=== PATIENT | female | born 1940 | race Caucasian/White ===

== ENCOUNTER 2017-04-30 06:42 | Outpatient (CLI) | payer MEDICARE, OTHER ==
[~2017-04-30] VITALS: Ht 165.1 cm; Wt 59.1 kg
[2017-04-30] MEDS ORDERED: SYNTHROID125 MCG PO (07:22)
[2017-04-30] MEDS ORDERED: TENORMIN25 MG PO (07:23)
[2017-04-30] MEDS ORDERED: LISINOPRIL10 MG PO (07:23)
[2017-04-30] MEDS ORDERED: NORVASC5 MG PO (07:23)
[2017-04-30] MEDS ORDERED: PLAQUENIL200 MG PO (07:23)
[2017-04-30] MEDS ORDERED: K-TAB10 MEQ PO (07:24)
[2017-04-30] MEDS ORDERED: VITAMIN B-1000 MCG/M IM (07:24)
[2017-04-30] MEDS ORDERED: OMEPRAZOLE40 MG PO (07:25)
[2017-04-30] MEDS ORDERED: PEPCID40 MG PO (07:25)
[2017-04-30] MEDS ORDERED: EVISTA60 MG PO (07:25)
[2017-04-30 07:29] LABS: BASOPHILS 0.2 % (0-2); EOSINOPHILS 0 % (0-7); HEMATOCRIT 37.7 % (36.0-48.0); HEMOGLOBIN 12.6 g/dL (12-16); IMMATURE GRANULOCYTES 0.2 % (0-5); MCH 31.7 pg (26.0-34.0); MCHC 33.4 g/dL (31.0-37.0); MEAN PLATELET VOLUME 9.6 fL (7.4-10.4); MONOCYTES 15.4 % (2-11); NEUTROPHILS 65.2 % (40-80); PLATELET COUNT 173 10x3/uL (130-400); RBC 3.97 10x6/uL (4.00-5.40); RDW 12.3 % (11.5-14.5); WBC 4.1 10x3/uL (4.8-10.8)
[2017-04-30 07:32] VITALS: BP 137/62; Ht 165.1 cm; Wt 59.1 kg
[2017-04-30 07:57] LABS: INR 0.96 (0.85-1.17); PROTIME 12.6 SECONDS (11.6-15.0)
[2017-04-30 07:58] LABS: ANION GAP 9.9 mmol/L (8-16); APTT 30.9 SECONDS (22.8-39.4); CALCIUM 8.5 mg/dL (8.5-10.1); CARBON DIOXIDE 29.6 mmol/L (21.0-32.0); CREATININE - SERUM 0.9 mg/dL (0.6-1.3); POTASSIUM - SERUM 3.5 mmol/L (3.5-5.1)
--- NOTE | 2017-04-30 12:07 | NUR ---
1145 IV DC WITH CATHER TIP INTACT
== END 2017-04-30 12:00 | disposition home or self-care (01) ==
LOC: D.OPS 06:42 → D.CT 09:00 → D.OPS 12:00
PROVIDERS: General Practice
DX: E85.9 Amyloidosis, unspecified (principal); R12 Heartburn

== ENCOUNTER 2017-12-07 08:36 | Inpatient (IN) | payer MEDICARE, OTHER ==
[~2017-12-07] VITALS: Ht 165.1 cm; Wt 58.2 kg
--- NOTE | ~2017-12-07 | EC ---
PATIENT:RICHY REGAN DATE OF SERVICE: 12/07/17 SEX: F MEDICAL RECORD: [id number] DATE OF : 38 LOCATION:D.M2 D.213 AGE OF PATIENT: 77 ADMISSION DATE: 12/07/17 REFERRING PHYSICIAN: INTERPRETING PHYSICIAN: UJANY PEREZ MD ECHOCARDIOGRAM REPORT ECHO CHARGES 4 ECHO COMPLETE CLINICAL DIAGNOSIS: CHF ECHOCARDIOGRAPHIC MEASUREMENTS (adult normal given) AC root (d.<3.7cm) 3.0 cm LV Septum d (<1.2 cm> 1.4 cm Valve Excursion 2.1 cm LV Septum (systole) 1.8 cm Left Atria (s.<4.0cm> 3.1 cm LVPW d(<1.2cm) 1.2 cm RV (d.<2.3cm) 2.5 cm LVPW (sytole) 2.0 cm LV diastole(<5.6CM) 5.2 cm MV E-F(>70mm/sec) cm LV systole 2.9 cm LVOT Diameter 1.7 cm MV exc.(>10mm) cm Est.ejection fraction (50-75%) % Pericardial Effusion N DOPPLER: LVIT cm/sec A 114 cm/sec E 123 cm/sec LA cm/sec RVSP 61.0 mmHg LVOT 96.0 cm/sec AOP1/2T 308 m/s Asc. Ao 179 cm/sec RVOT 81.0 cm/sec RA cm/sec PA 87.0 cm/sec AV Gradient Peak 13.0 mmHg AV Mean 6.7 mmHg AV Area 1.1 cm MV Gradient Peak 6.4 mmHg MV Mean 3.1 mmHg MV Area cm COMMENTS: Financial Intern: Pillo MCKEONOE Orthotics Technician: 1 Dr. Perez TAPE# PACS DATE OF SERVICE: 12/07/2017 ECHOCARDIOGRAM DATE OF SERVICE: 12/07/2017 FINDINGS: 1. Left ventricular chamber size is within normal limits. Left ventricular systolic function is normal. Overall ejection fraction estimated at 55%. 2. Left atrium, right atrium, and right ventricular chamber sizes are within ECHOCARDIOGRAM REPORT [id number] RICHY REGAN normal limits. 3. Valvular structures have normal structure and motion. 4. Doppler interrogation reveals mild aortic insufficiency, moderate mitral regurgitation, moderate tricuspid regurgitation, no other valvular insufficiency or stenosis; however, pulmonary systolic pressure is elevated estimated at 61 mmHg. 5. No evidence of pericardial effusion or left ventricular thrombus. TRANSINT:[id number] Voice Confirmation ID: [id number] DOCUMENT ID: [id number] JUANY PEREZ MD at 1324 CC: [id number] DICTATION DATE: 12/08/17 0950 ACCOUNT DEVELOPMENT ASSOCIATE: 12/08/17 1204 ADM IN [facility] [address] [place] [address]
[~2017-12-07 08:36] MED LIST: EVISTA60 MG PO; K-TAB10 MEQ PO; LISINOPRIL10 MG PO; NORVASC5 MG PO; OMEPRAZOLE40 MG PO; PEPCID40 MG PO; PLAQUENIL200 MG PO; SYNTHROID125 MCG PO; TENORMIN25 MG PO; VITAMIN B-1000 MCG/M IM
[2017-12-07 09:20] LABS: ALBUMIN 3.6 g/dL (3.4-5.0); ANION GAP 12.8 mmol/L (8-16); BILIRUBIN - TOTAL 0.5 mg/dL (0.2-1.3); CALCIUM 8.2 mg/dL (8.5-10.1); CARBON DIOXIDE 26.7 mmol/L (21.0-32.0); CREATININE - SERUM 0.8 mg/dL (0.6-1.3); POTASSIUM - SERUM 3.5 mmol/L (3.5-5.1); PROTEIN - SERUM 7.3 g/dL (6.4-8.2)
[2017-12-07 09:26] LABS: BASOPHILS 0 % (0-2); EOSINOPHILS 0 % (0-7); HEMATOCRIT 34.4 % (36.0-48.0); HEMOGLOBIN 11.5 g/dL (12-16); LYMPHOCYTES 5.4 % (15-50); MCH 31.1 pg (26.0-34.0); MCHC 33.4 g/dL (31.0-37.0); MONOCYTES 11.7 % (2-11); NEUTROPHILS 82.9 % (40-80); PLATELET COUNT 169 10x3/uL (130-400); RDW 12.1 % (11.5-14.5); WBC 5.4 10x3/uL (4.8-10.8)
[2017-12-07 09:37] LABS: THYROID STIMULATING HORMONE 0.56 uIU/mL (0.36-3.74); TROPONIN-I 0.054 ng/mL (0.000-0.060)
[2017-12-07 12:53] VITALS: BP 144/56; BMI 21.5
[2017-12-07 17:30] VITALS: BP 153/73
[2017-12-07 17:31] VITALS: BP 153/73
[2017-12-07 18:31] LABS: % SATURATION 5 % (15-55); IRON 16 ug/dl (35-150); TOTAL IRON BIND CAPACITY 299 ug/dl (260-445); UNSAT IRON BIND CAPACITY 283 ug/dl (150-375)
[2017-12-07 18:40] LABS: APPEARANCE CLEAR (CLEAR); BILIRUBIN NEGATIVE (NEGATIVE); COLOR YELLOW (YELLOW); GLUCOSE NEGATIVE (NEGATIVE); KETONE NEGATIVE (NEGATIVE); NITRITE NEGATIVE (NEGATIVE); PROTEIN NEGATIVE (NEGATIVE); UROBILINOGEN NORMAL (NORMAL)
[2017-12-07 18:44] LABS: FERRITIN 393 ng/mL (3-244); PRO BNP 3587 pg/mL (0-450)
[2017-12-07 21:30] VITALS: BP 137/57
[2017-12-08 06:02] LABS: BASOPHILS 0 % (0-2); EOSINOPHILS 0 % (0-7); HEMATOCRIT 31.7 % (36.0-48.0); HEMOGLOBIN 10.7 g/dL (12-16); IMMATURE GRANULOCYTES 0.2 % (0-5); LYMPHOCYTES 6.4 % (15-50); MCH 31.2 pg (26.0-34.0); MCHC 33.8 g/dL (31.0-37.0); MCV 92.4 fL (80.0-100.0); MEAN PLATELET VOLUME 10.2 fL (7.4-10.4); MONOCYTES 25.8 % (2-11); NEUTROPHILS 67.6 % (40-80); PLATELET COUNT 153 10x3/uL (130-400); RBC 3.43 10x6/uL (4.00-5.40); RDW 12.1 % (11.5-14.5); WBC 4.2 10x3/uL (4.8-10.8)
[2017-12-08 06:11] VITALS: BP 133/48
[2017-12-08 06:23] LABS: ANION GAP 10.2 mmol/L (8-16); CALCIUM 7.9 mg/dL (8.5-10.1); CARBON DIOXIDE 26.8 mmol/L (21.0-32.0); CREATININE - SERUM 0.8 mg/dL (0.6-1.3)
[2017-12-08 07:59] VITALS: BP 154/71
[2017-12-08 09:59] VITALS: BMI 20.9
[2017-12-08 11:50] VITALS: BP 142/73
[2017-12-08 12:49] VITALS: Ht 165.1 cm; Wt 58.2 kg
[2017-12-08 15:12] VITALS: BP 133/57
[2017-12-08 20:00] VITALS: BP 118/48
[2017-12-09] VITALS: BP 147/66
[2017-12-09 04:00] VITALS: BP 120/46
[2017-12-09 06:25] LABS: BASOPHILS 0 % (0-2); EOSINOPHILS 0 % (0-7); HEMATOCRIT 34.6 % (36.0-48.0); HEMOGLOBIN 11.5 g/dL (12-16); IMMATURE GRANULOCYTES 0.5 % (0-5); LYMPHOCYTES 10.6 % (15-50); MCH 30.9 pg (26.0-34.0); MCHC 33.2 g/dL (31.0-37.0); MEAN PLATELET VOLUME 10.4 fL (7.4-10.4); MONOCYTES 22.1 % (2-11); NEUTROPHILS 66.8 % (40-80); PLATELET COUNT 169 10x3/uL (130-400); RBC 3.72 10x6/uL (4.00-5.40); RDW 12.4 % (11.5-14.5); WBC 3.7 10x3/uL (4.8-10.8)
[2017-12-09 06:40] LABS: CALC OSMOLALITY 260 mosm/kg (275-300); CARBON DIOXIDE 24.6 mmol/L (21.0-32.0); CHLORIDE - SERUM 96 mmol/L (98-107); CREATININE - SERUM 0.7 mg/dL (0.6-1.3); GLUCOSE 95 mg/dL (74-106); POTASSIUM - SERUM 3.3 mmol/L (3.5-5.1); SODIUM 131 mmol/L (136-145); UREA NITROGEN 7 mg/dL (7-18); eGFR NON AFRICAN AMERICAN 86 mL/min (90-120)
[2017-12-09 07:20] LABS: FOLATE (FOLIC ACID) - SERUM >20.0 ng/mL (>3.0)
[2017-12-09 07:39] VITALS: BP 156/67
[2017-12-09 10:48] VITALS: BP 116/61
[2017-12-09 15:21] VITALS: BP 150/54
[2017-12-09 19:00] VITALS: BP 126/60
[2017-12-10] VITALS: BP 111/50
[2017-12-10 04:00] VITALS: BP 148/60
[2017-12-10 05:37] LABS: BASOPHILS 0 % (0-2); EOSINOPHILS 0 % (0-7); HEMATOCRIT 33.7 % (36.0-48.0); HEMOGLOBIN 11.1 g/dL (12-16); IMMATURE GRANULOCYTES 0.2 % (0-5); LYMPHOCYTES 8.1 % (15-50); MCH 30.8 pg (26.0-34.0); MCHC 32.9 g/dL (31.0-37.0); MCV 93.6 fL (80.0-100.0); MEAN PLATELET VOLUME 10.2 fL (7.4-10.4); NEUTROPHILS 65.7 % (40-80); PLATELET COUNT 170 10x3/uL (130-400); RDW 12.4 % (11.5-14.5); WBC 4.3 10x3/uL (4.8-10.8)
[2017-12-10 06:05] LABS: ANION GAP 12.9 mmol/L (8-16); CARBON DIOXIDE 25.9 mmol/L (21.0-32.0); CREATININE - SERUM 0.8 mg/dL (0.6-1.3); POTASSIUM - SERUM 3.8 mmol/L (3.5-5.1); VANCOMYCIN - TROUGH 13.2 ug/mL (10.0-20.0)
[2017-12-10 08:07] VITALS: BP 126/66
[2017-12-10 11:10] VITALS: BP 140/64
[2017-12-10 15:27] VITALS: BP 133/66
[2017-12-10 20:00] VITALS: BP 153/69
[2017-12-11] VITALS: BP 108/57
[2017-12-11 05:36] LABS: BASOPHILS 0.3 % (0-2); EOSINOPHILS 0.3 % (0-7); HEMATOCRIT 31.9 % (36.0-48.0); HEMOGLOBIN 10.6 g/dL (12-16); IMMATURE GRANULOCYTES 0.3 % (0-5); LYMPHOCYTES 8.2 % (15-50); MCH 30.9 pg (26.0-34.0); MCHC 33.2 g/dL (31.0-37.0); MONOCYTES 26.2 % (2-11); NEUTROPHILS 64.7 % (40-80); PLATELET COUNT 170 10x3/uL (130-400); RBC 3.43 10x6/uL (4.00-5.40); RDW 12.3 % (11.5-14.5); WBC 3.9 10x3/uL (4.8-10.8)
[2017-12-11 05:51] LABS: CALC OSMOLALITY 259 mosm/kg (275-300); CALCIUM 7.4 mg/dL (8.5-10.1); CARBON DIOXIDE 23.9 mmol/L (21.0-32.0); CHLORIDE - SERUM 96 mmol/L (98-107); CREATININE - SERUM 0.7 mg/dL (0.6-1.3); GLUCOSE 84 mg/dL (74-106); POTASSIUM - SERUM 3.5 mmol/L (3.5-5.1); SODIUM 131 mmol/L (136-145); UREA NITROGEN 8 mg/dL (7-18); eGFR NON AFRICAN AMERICAN 86 mL/min (90-120)
[2017-12-11 06:14] LABS: SPE - A/G RATIO 1.1 (0.7-1.7); SPE - ALPHA-1 GLOBULIN 0.3 g/dL (0.0-0.4); SPE - ALPHA-2 GLOBULIN 0.9 g/dL (0.4-1.0); SPE - BETA GLOBULIN 0.6 g/dL (0.7-1.3); SPE - M-SPIKE Not Observed g/dL (Not Observed); SPE - TOTAL PROTEIN 5.8 g/dL (6.0-8.5)
[2017-12-11 07:48] VITALS: BP 103/64
[2017-12-11 11:39] VITALS: BP 155/77
[2017-12-11 16:22] LABS: COMPLEMENT C4 3.5 mg/dL (17.4-52.2)
[2017-12-11 16:42] VITALS: BP 153/73
[2017-12-11 19:00] VITALS: BP 129/65
[2017-12-12 04:00] VITALS: BP 145/65
[2017-12-12 06:32] LABS: HEMATOCRIT 35.3 % (36.0-48.0); HEMOGLOBIN 11.7 g/dL (12-16); MCH 30.5 pg (26.0-34.0); MCHC 33.1 g/dL (31.0-37.0); MCV 91.9 fL (80.0-100.0); MEAN PLATELET VOLUME 9.9 fL (7.4-10.4); PLATELET COUNT 191 10x3/uL (130-400); RBC 3.84 10x6/uL (4.00-5.40); RDW 12.2 % (11.5-14.5)
[2017-12-12 06:54] LABS: WBC 1.4 10x3/uL (4.8-10.8)
[2017-12-12 07:00] LABS: ALBUMIN 2.8 g/dL (3.4-5.0); ANION GAP 16.2 mmol/L (8-16); BILIRUBIN - DIRECT 0.09 mg/dL (0.00-0.30); BILIRUBIN - INDIRECT 0.24 mg/dL (0.00-1.00); BILIRUBIN - TOTAL 0.33 mg/dL (0.2-1.3); CALCIUM 8.4 mg/dL (8.5-10.1); CARBON DIOXIDE 23.3 mmol/L (21.0-32.0); CREATININE - SERUM 0.8 mg/dL (0.6-1.3); POTASSIUM - SERUM 3.5 mmol/L (3.5-5.1)
[2017-12-12 07:38] LABS: EOSINOPHILS 2 % (0-7); LYMPHOCYTES 6 % (15-50); MONOCYTES 2 % (2-11); NEUTROPHILS 84 % (40-80); PLATELET ESTIMATE NORMAL; PLATELET MORPHOLOGY GIANT PLTS PRESENT
[2017-12-12 08:26] VITALS: BP 146/70
[2017-12-12 13:05] VITALS: BP 153/67
[2017-12-12 19:00] VITALS: BP 157/85
[2017-12-13 01:00] VITALS: BP 145/59
[2017-12-13 03:34] VITALS: BP 116/50
[2017-12-13 05:42] LABS: HEMATOCRIT 32.1 % (36.0-48.0); HEMOGLOBIN 10.9 g/dL (12-16); MCH 30.8 pg (26.0-34.0); MCV 90.7 fL (80.0-100.0); MEAN PLATELET VOLUME 10.5 fL (7.4-10.4); PLATELET COUNT 225 10x3/uL (130-400); RBC 3.54 10x6/uL (4.00-5.40); RDW 12.3 % (11.5-14.5); WBC 32.6 10x3/uL (4.8-10.8)
[2017-12-13 06:12] LABS: ANION GAP 15.4 mmol/L (8-16); CALCIUM 8.4 mg/dL (8.5-10.1); CARBON DIOXIDE 23.9 mmol/L (21.0-32.0); CREATININE - SERUM 0.8 mg/dL (0.6-1.3); POTASSIUM - SERUM 3.3 mmol/L (3.5-5.1); VANCOMYCIN - TROUGH 14.5 ug/mL (10.0-20.0)
[2017-12-13 06:51] LABS: LYMPHOCYTES 4 % (15-50); MONOCYTES 2 % (2-11); NEUTROPHILS 78 % (40-80); PLATELET ESTIMATE NORMAL
[2017-12-13 08:32] VITALS: BP 145/66
[2017-12-13 11:24] VITALS: BP 143/64
[2017-12-13 15:46] VITALS: BP 119/59
[2017-12-13 20:00] VITALS: BP 132/60
[2017-12-14] VITALS: BP 147/75
[2017-12-14 04:00] VITALS: BP 135/68
[2017-12-14 06:33] LABS: BASOPHILS 0 % (0-2); EOSINOPHILS 0 % (0-7); HEMATOCRIT 33.8 % (36.0-48.0); HEMOGLOBIN 11.2 g/dL (12-16); IMMATURE GRANULOCYTES 7.6 % (0-5); LYMPHOCYTES 2.1 % (15-50); MCH 30.5 pg (26.0-34.0); MCHC 33.1 g/dL (31.0-37.0); MCV 92.1 fL (80.0-100.0); MEAN PLATELET VOLUME 10.3 fL (7.4-10.4); NEUTROPHILS 86.3 % (40-80); PLATELET COUNT 208 10x3/uL (130-400); RBC 3.67 10x6/uL (4.00-5.40); RDW 12.5 % (11.5-14.5); WBC 25.7 10x3/uL (4.8-10.8)
[2017-12-14 06:36] LABS: CALC OSMOLALITY 269 mosm/kg (275-300); CALCIUM 8.2 mg/dL (8.5-10.1); CARBON DIOXIDE 26.9 mmol/L (21.0-32.0); CHLORIDE - SERUM 98 mmol/L (98-107); CREATININE - SERUM 0.7 mg/dL (0.6-1.3); GLUCOSE 133 mg/dL (74-106); POTASSIUM - SERUM 3.4 mmol/L (3.5-5.1); SODIUM 133 mmol/L (136-145); UREA NITROGEN 19 mg/dL (7-18); eGFR NON AFRICAN AMERICAN 86 mL/min (90-120)
[2017-12-14 07:55] VITALS: BP 149/57
[2017-12-14 12:00] VITALS: BP 153/77
[2017-12-14 16:17] VITALS: BP 143/75
[2017-12-14 19:00] VITALS: BP 149/73
[2017-12-15 04:00] VITALS: BP 169/78
[2017-12-15 06:20] LABS: CALC OSMOLALITY 272 mosm/kg (275-300); CALCIUM 8.3 mg/dL (8.5-10.1); CARBON DIOXIDE 27.5 mmol/L (21.0-32.0); CHLORIDE - SERUM 99 mmol/L (98-107); CREATININE - SERUM 0.6 mg/dL (0.6-1.3); GLUCOSE 103 mg/dL (74-106); POTASSIUM - SERUM 3.1 mmol/L (3.5-5.1); SODIUM 136 mmol/L (136-145); UREA NITROGEN 15 mg/dL (7-18); eGFR NON AFRICAN AMERICAN > 90 mL/min (90-120)
[2017-12-15 06:43] LABS: BASOPHILS 0.1 % (0-2); EOSINOPHILS 0 % (0-7); HEMATOCRIT 33.1 % (36.0-48.0); IMMATURE GRANULOCYTES 1.8 % (0-5); LYMPHOCYTES 4.5 % (15-50); MCHC 33.2 g/dL (31.0-37.0); MCV 93.2 fL (80.0-100.0); MEAN PLATELET VOLUME 10.9 fL (7.4-10.4); MONOCYTES 5.9 % (2-11); NEUTROPHILS 87.7 % (40-80); PLATELET COUNT 198 10x3/uL (130-400); RBC 3.55 10x6/uL (4.00-5.40); RDW 12.6 % (11.5-14.5); WBC 25.7 10x3/uL (4.8-10.8)
[2017-12-15 08:46] VITALS: BP 119/77
[2017-12-15 11:23] VITALS: BP 164/68
[2017-12-15] MEDS ORDERED: ACETAMINOPHEN325 MG PO (11:25)
[2017-12-15] MEDS ORDERED: PREDNISONE20 MG PO (11:26)
[2017-12-15 16:14] LABS: ANCA - ANTIMYELOPEROXIDASE <9.0 U/mL (0.0-9.0); ANCA - ANTIPROTEINASE 3 <3.5 U/mL (0.0-3.5); ANCA - ATYPICAL <1:20 titer (Neg:<1:20); ANCA - CYTOPLASMIC <1:20 titer (Neg:<1:20); ANCA - PERINUCLEAR <1:20 titer (Neg:<1:20)
== END 2017-12-15 14:03 | DRG 193 ==
LOC: D.ER 08:36 → D.M2 11:49
PROVIDERS: Family Medicine; Internal Medicine Hematology & Oncology; Internal Medicine Nephrology
DX: J18.9 Pneumonia, unspecified organism (principal); I50.31 Acute diastolic (congestive) heart failure; E87.1 Hypo-osmolality and hyponatremia; N39.0 Urinary tract infection, site not specified; E85.4 Organ-limited amyloidosis; I11.0 Hypertensive heart disease with heart failure; R55 Syncope and collapse; I48.91 Unspecified atrial fibrillation; K21.9 Gastro-esophageal reflux disease without esophagitis; M35.00 Sjogren syndrome, unspecified; E03.9 Hypothyroidism, unspecified; B00.1 Herpesviral vesicular dermatitis; D50.9 Iron deficiency anemia, unspecified; E87.6 Hypokalemia; K44.9 Diaphragmatic hernia without obstruction or gangrene; I08.1 Rheumatic disorders of both mitral and tricuspid valves; J43.9 Emphysema, unspecified; B00.9 Herpesviral infection, unspecified; L93.1 Subacute cutaneous lupus erythematosus; D70.9 Neutropenia, unspecified; I77.6 Arteritis, unspecified; Z85.3 Personal history of malignant neoplasm of breast; B95.2 Enterococcus as the cause of diseases classified elsewhere

== ENCOUNTER 2018-07-09 12:40 | Inpatient (IN) | payer MEDICARE, OTHER ==
[2018-07-09] VITALS (7 sets, daily range): BP systolic 134–172; BP diastolic 64–88; BMI 22.5
[~2018-07-09] VITALS: Ht 165.1 cm; Wt 48.2 kg
--- NOTE | ~2018-07-09 | OP ---
PATIENT NAME: RICHY REGAN MEDICAL RECORD: [id number] :38 LOCATION:D.M2 D.2122 ADMISSION DATE:07/09/18 SURGEON: JUANY CRABTREE MD DATE OF OPERATION: 07/13/2018 PROCEDURE: Right heart catheterization. INDICATION: Shortness of breath, dyspnea on exertion, pulmonary hypertension by echocardiogram. PROCEDURE IN DETAIL: After informed consent was obtained and after a detailed description of risks, benefits as well as alternative therapies, the patient elected to proceed with right heart catheterization. Right femoral area was prepped and draped in normal sterile fashion. Right femoral vein was cannulated via modified Seldinger technique with placement of 7-Malagasy sheath. FINDINGS: The pulmonary capillary wedge mean pressure is 5, right ventricular pressure 31/5, pulmonary artery pressure 31/14, mean capillary wedge pressure of 14. OVERALL IMPRESSION: No pulmonary hypertension is present. TRANSINT:[id number] Voice Confirmation ID: [id number] DOCUMENT ID: [id number] JUANY CRABTREE MD at 1642 CC: [id number] DICTATION DATE: 07/13/1845 CEPHALOMETRIC ANALYST: 07/13/18 0951 ADM IN [facility] [address] [place] [id number]
--- NOTE | ~2018-07-09 | PN ---
PATIENT:RICHY REGAN MEDICAL RECORD: [id number] LOCATION:D.M2 D.212 ADMISSION DATE: 07/09/18 PROGRESS NOTE DATE OF SERVICE: 07/12/2018 This is a 78-year-old female who presented with shortness of breath. No orthopnea or history of congestive heart failure. The patient has had pulmonary hypertension, has also had rhinitis. 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 The patient has been treated with antibiotics and bronchodilators. The patient states that she is a little bit better today but not felt well. There is no fever or chills. PHYSICAL EXAMINATION: GENERAL: This is an elderly female who is in no acute distress, orthopnea. VITAL SIGNS: Temperature 97.9, heart rate of 86, respiratory rate of 20, blood pressure 151/79, saturation 96% on 2.5 liters. HEENT: Unremarkable. NECK: Supple. CHEST: Exam did show some mild rales. HEART: Exam shows no jugular venous distention, no murmur or gallops. ABDOMEN: Benign without any tenderness. EXTREMITIES: No clubbing, cyanosis or edema. LABORATORY DATA: Her white count is 1, hemoglobin is 10.7, platelet count is 146,000. Chemistries remarkable for sodium 129, potassium 4.3, creatinine is 0.8. Double-stranded DNA is pending. MALIKA is also pending. Rheumatoid factor is pending. Mycoplasma pneumonia IgG is pending. IgM is also pending. Chest x-ray shows no acute cardiopulmonary disease. CT angiogram showed no pulmonary embolism, suggestion of congestion with left pleural effusion, which is smaller. There is no pulmonary embolism. ASSESSMENT: 1. Dyspnea, which is probably secondary to collagen vascular disease. There is also a possibility of chronic aspiration. The patient has allergic rhinitis. 2. Left pleural effusion due to collagen vascular disease. Serology is pending and immunology also pending. The patient is currently on isolation. 3. Leukopenia. 4. Hyponatremia. This is improving. PLAN: 1. Await for serology and immunology. If there is any acute inflammation, the patient may need steroids. 2. Isolation for neutropenia. 3. Deep venous thrombosis prophylaxis. TRANSINT:[id number] Voice Confirmation ID: [id number] DOCUMENT ID: [id number] PROGRESS NOTE [id number] RICHY REGAN BLAIR MOORE at 1554 CC: [id number] DICTATION DATE: 07/12/18 183 CANDY PACKER: 07/12/18 2314 ADM IN [place] [id number] [place] [id number]
--- NOTE | ~2018-07-09 | EC ---
PATIENT:RICYH REGAN DATE OF SERVICE: 07/09/18 SEX: F MEDICAL RECORD: [id number] DATE OF : 38 LOCATION:D.M2 D.212 AGE OF PATIENT: 78 ADMISSION DATE: 07/09/18 REFERRING PHYSICIAN: INTERPRETING PHYSICIAN: JUANY PEREZ MD ECHOCARDIOGRAM REPORT ECHO CHARGES 4 ECHO COMPLETE Date: 07/11 CLINICAL DIAGNOSIS: CHF ECHOCARDIOGRAPHIC MEASUREMENTS (adult normal given) AC root (d.<3.7cm) 3.2 cm LV Septum d (<1.2 cm> 1.2 cm Valve Excursion 1.4 cm LV Septum (systole) 1.4 cm Left Atria (s.<4.0cm> 3.6 cm LVPW d(<1.2cm) 1.4 cm RV (d.<2.3cm) 3.6 cm LVPW (sytole) 1.9 cm LV diastole(<5.6CM) 5.4 cm MV E-F(>70mm/sec) cm LV systole 4.0 cm LVOT Diameter 1.8 cm MV exc.(>10mm) 1.8 cm Est.ejection fraction (50-75%) % DOPPLER: LVIT cm/sec A 128 cm/sec E 80.0 cm/sec LA cm/sec RVSP 42 mmHg LVOT 95 cm/sec AOP1/2T 331 m/s Asc. Ao 152 cm/sec RVOT cm/sec RA cm/sec PA cm/sec AV Gradient Peak 9.20 mmHg AV Mean 5.24 mmHg AV Area 1.5 cm MV Gradient Peak 11.11mmHg MV Mean 3.41 mmHg MV Area cm COMMENTS: Java Developer Architect: Karen NOVOA Vice President Of Software Engineering: 1 Dr. Perez TAPE# PACS Pericardial Effusion Y DATE OF SERVICE: 07/11/2018 ECHOCARDIOGRAM FINDINGS: 1. Left ventricular chamber size is within normal limits. Left ventricular systolic function is normal. Overall ejection fraction is estimated at 50%. 2. Left atrium, right atrium, and right ventricle chamber sizes are within normal limit. 3. Valvular structures have normal structure and motion. ECHOCARDIOGRAM REPORT [id number] RICHY REGAN 4. Doppler interrogation reveals mild aortic insufficiency, mild mitral regurgitation, and mild tricuspid regurgitation. No other valvular insufficiency or stenosis. Pulmonary systolic pressure is estimated at 42 mmHg. 5. No evidence of pericardial effusion or left ventricular thrombus. TRANSINT:[id number] Voice Confirmation ID: [id number] DOCUMENT ID: [id number] JUANY PEREZ MD at 1642 CC: [id number] DICTATION DATE: 07/12/18 1208 HELP DESK SUPPORT SPECIALIST: 07/12/18 1303 ADM IN [facility] [address] [place] [id number]
--- NOTE | ~2018-07-09 | PN ---
PATIENT:RICHY REGAN MEDICAL RECORD: [id number] LOCATION:D. D.212 ADMISSION DATE: 07/09/18 PROGRESS NOTE DATE OF SERVICE: 07/14/2018 SUBJECTIVE: This is a 78-year-old female who has had a history of cutaneous lupus erythematosus, Sjogren's disease, also amyloidosis, also had a history of breast carcinoma. The patient presented to the Emergency Room with hypoxemic respiratory failure. The patient has been coughing up sputum. Initially, it was green, yellow, has now improved. The coughing has decreased. She became leukopenic while in the hospital and was placed on isolation. White count has improved and the patient is no more in isolation. The patient has been weak and is scheduled for bone marrow in the morning. There is no fever or chill. The patient feels weak. PHYSICAL EXAMINATION: GENERAL: Reveals an elderly female who is in no acute distress. VITAL SIGNS: Temperature 98.8, heart rate 111, respiratory rate 24, blood pressure 123/44, saturations 84%. HEENT: The patient is normocephalic. Pupils are equal and reactive. Nares are normal. Normally moistened mouth. NECK: Supple. There is no adenopathy. There is no thyromegaly. Trachea is midline. PULMONARY: Clear with good airflow bilaterally. CARDIAC: Shows no jugular venous distention. No murmur or gallops. ABDOMEN: Benign. EXTREMITIES: No clubbing, cyanosis or edema. LABORATORY DATA: Show positive MALIKA screen, double-stranded DNA antibody is negative. Rheumatoid antibody is negative. Mycoplasma IgG is positive. ASSESSMENT: 1. Acute bronchitis. 2. Systemic lupus erythematosus. 3. History of breast carcinoma, rule out metastatic disease. The patient will have bone marrow in the morning. Legionella is negative. PLAN: 1. Continue bronchodilators. 2. Continue mucolytics. 3. Follow up with heme-oncology. 4. We will sign off this patient. If needed, please call. TRANSINT:[id number] Voice Confirmation ID: [id number] DOCUMENT ID: [id number] PROGRESS NOTE [id number] RICHY REGAN BLAIR MOORE at 1241 CC: [id number] DICTATION DATE: 07/14/18 1721 TRUCK ENGINE TECHNICIAN: 07/14/18 1928 ADM IN [facility] [address] [place] [address]
--- NOTE | ~2018-07-09 | HEMODYNAMI ---
PATIENT:RICHY REGAN MEDICAL RECORD: [id number] : 38 LOCATION:[facility] D.2122 ADMISSION DATE: 07/09/18 Generatedon:07/13/20189:45 Patient name: RICHY REGAN Patient #: [id number] SSN: DO B: 1940 Date of study: 07/13/2018 Page: Of Hemodynamic Procedure Report Patient Data Patient Demographics Procedure consent was obtained First Name: RICHY Gender: Female Last Name: JASS : 1940 [facility] Initial: SAIDA Age: 78 year(s) Patient #: [id number] Race: Unknown Additional ID: [id number] Contact details Address: [address] [place] [address] [place] [place] [facility] Zip code: [address] Past Medical History Allergies Allergen Reaction Date Comments Reported Other allergy 07/13/2018 See chart Admission Admission Data Admission Date: 07/09/2018 Admission Time: 16:24 Room #: 2122 Lab Results Lab Result Date: 07/13/2018 Lab Result Time: 0:00 Biochemistry Name Units Result Min Max BUN mg/dl 12 --(-*--)-- 7 18 Creatinine mg/dl 0.8 --(-*--)-- 0.6 1.3 CBC Name Units Result Min Max Hemoglobin g/dl 11.1 *-(----)-- 13.5 17.5 Procedure Procedure Types Cath Procedure Diagnostic Procedure Right Heart Right Heart Cath Procedure Description Procedure Date Procedure Date: 07/13/2018 Procedure Start Time: 9:35 Procedure End Time: 9:45 Procedure Staff Name Function Luis M Perez MD Performing Physician Selma Pittman RT Monitor Poly Gagnon RN Nurse Mel Li RT Scrub Procedure Data Cath Procedure Fluoroscopy Diagnostic fluoroscopy Total fluoroscopy Time: 1.4 time: 1.4 min min Diagnostic fluoroscopy Total fluoroscopy dose: 31 dose: 31 mGy mGy Entry Location Entry Primary Successful Side Size Upsize Upsize Entry Closure Lemon ccessful Closure Location (Fr) 1 (Fr) 2 (Fr) Remarks Device Remarks Femoral Right 7 Fr Manual vein Short Compression Estimated blood loss: 5 ml Diagnostic catheters Device Type Used For End Catheter Placement SWAN 7Fr Thermodilution Procedure cather (131F7P) Procedure Complications No complications Procedure Medications Medication Administration Route Dosage Oxygen etCO2 Nasal cannula 2 l/min Lidocaine 2% added to field 20 Heparin Flush Bag added to field 2 bags (1000units/500ml NS) 0.9% NaCl I.V. 50 ml/hr Versed I.V. 1 mg Fentanyl I.V. 50 mcg Hemodynamics Rest Heart Rate: 112 (bpm) Pressure Samples Time Site Value (mmHg) Purpose Heart Use Rate(bpm) 9:39 RA 6/4(3) Snapshot 110 9:40 RV 36/-1,3 Snapshot 110 9:41 PA 32/14(21) Snapshot 110 9:41 PCW 16/23(17) Snapshot 110 Snapshots Pre Cath Intra NCS Post Cath Vital Signs Time Heart Resp SPO2 etCO2 NIBP (mmHg) Rhythm Pain Sedation Rate (ipm) (%) (mmHg) Status Level (bpm) 9:31:40 112 24 93 0 146/76(98) NSR 0 (11) 10(A) , No pain 9:35:40 110 19 94 0 139/76(102) NSR 0 (11) 9(A) , No pain 9:39:47 120 21 96 30 157/80(108) NSR 0 (11) 9(A) , No pain 9:44:03 103 20 96 30.7 131/72(101) NSR 0 (11) 10(A) , No pain Medications Time Medication Route Dose Verified Delivered Reason Notes Effe ctiveness by by 9:18:13 Oxygen etCO2 2 Luis M Buffie used for Nasal l/min Chris Gagnon RN procedure cannula 9:30:19 Lidocaine 2% added 20ml Luis M Asencio for local to vial Chris Perez MD anesthetic field 9:30:25 Heparin Flush added 2 Luis M Luis M used for Bag to bags Chris Perez MD procedure (1000units/500ml field NS) 9:30:32 0.9% NaCl I.V. 50 Luis M Buffie Per ml/hr Chris Gagnon RN physician 9:33:07 Versed I.V. 1 mg Luis M Gagnon RN sedation 9:33:36 Fentanyl I.V. 50 Luis M Pang for [facility] Chris Gagnon RN sedation Procedure Log Time Note 8:54:09 Time tracking: Regular hours (M-F 7:00 - 5:00) 8:54:15 Plan of Care:Hemodynamics will remain stable., Cardiac rhythm will remain stable., Comfort level will be maintained., Respiratory function will remain adequate., Patient/ family verbilizes understanding of procedure., Procedure tolerated without complication., Recovers from procedure without complications.. 9:02:10 Poly Gagnon RN sent for patient. Start room use. 9:13:09 Patient received from PCU to CCL 2 Alert and oriented. Tansferred to table in Supine position. 9:13:11 Warm blankets applied, and jayesh hugger turned on for patient comfort. 9:13:11 Correct patient and procedure confirmed by team. 9:13:12 Signed procedure consent form obtained from patient. 9:13:13 ECG and BP/O2 sat monitors applied to patient. 9:13:14 Full Disclosure recording started 9:16:01 H&P Date Dictated: 07/09/2018 Within 30 days and on chart., H&P Addendum completed by physician on day of procedure. (MUST COMPLETE FOR ALL OUTPATIENTS). 9:16:03 Pre-procedure instructions explained to patient. 9:16:10 Pre-op teaching completed and patient verbalized understanding. 9:16:12 Family in waiting room. 9:16:14 Patient NPO since Midnight. 9:16:56 Patient allergic to Other allergySee chart 9:16:59 Is the patient allergic to Iodine/contrast media? No. 9:17:00 Was the patient premedicated? Yes 9:17:42 Is patient on blood thinner?No 9:17:47 Patient diabetic? No. 9:17:54 Snore? No 9:17:56 Sleep apnea? No 9:17:58 Deviated septum? No 9:18:06 Dentures? Yes in tight 9:18:13 Oxygen 2 l/min etCO2 Nasal cannula was administered by Poly Gagnon RN; used for procedure; 9:18:21 Patient pain scale 0/10 ?. 9:18:27 IV patent on arrival in left forearm with 0.9% NaCl at KVO. 9:18:44 Lab results completed and on chart. 9:19:11 Lab Result : BUN 12 mg/dl 9:19:11 Lab Result : Hemoglobin 11.1 g/dl 9:19:11 Lab Result : Creatinine 0.8 mg/dl 9:19:17 Right groin area was prepped with chlora-prep and draped in sterile fashion 9:19:17 Alarms reviewed by R. N. 9:19:18 Sharps counted by scrub and verified by R.N. 9:19:20 Physician paged 9:22:30 Use device set Right Heart Kit 9:22:35 SHEATH 7FR Dumont ([id number]) opened to sterile field. 9:22:44 Use device set CATH PACK 9:22:50 ACIST Hand Control (23215) opened to sterile field. 9:22:51 ACIST Manifold (47133) opened to sterile field. 9:22:53 Medline Cath Pack ([id number]) opened to sterile field. 9:22:54 Bag Decanter (2002S) opened to sterile field. 9:23:03 ACIST Syringe (63707) opened to sterile field. 9:23:14 Opens mouth fully? Yes 9:23:15 Sticks out tongue? Yes 9:23:18 Airway obstruction? No ? 9:25:41 Pre procedure: right dorsailis pedis pulse 2+ Normal; easily identifiable; not easily obliterated 9:30:19 Lidocaine 2% 20ml vial added to field was administered by Luis M Perez MD; for local anesthetic; 9:30:25 Heparin Flush Bag (1000units/500ml NS) 2 bags added to field was administered by Luis M Perez MD; used for procedure; 9:30:26 Final Timeout: patient, procedure, and site verified with staff and physician. All members of the team are in agreement. 9:30:28 Right groin site verified by team. 9:30:32 0.9% NaCl 50 ml/hr I.V. was administered by Poly Gagnon RN; Per physician; 9:30:32 Physical assessment completed. ASA score P 2 - A patient with mild systemic disease as per Luis M Perez MD. 9:30:35 Vital chart was started 9:30:35 Sedation plan: IV Moderate Sedation Medication:Versed, Fentanyl 9:30:38 Baseline sample Acquired. 9:30:41 Zero performed for pressure channel P1 9:33:07 Versed 1 mg I.V. was administered by Poly Gagnon RN; for sedation; 9:33:36 Fentanyl 50 mcg I.V. was administered by Poly Gagnon RN; for sedation; 9:33:36 Procedure started. 9:35:24 Local anesthetic to right femoral vein with Lidocaine 2% by Luis M Perez MD.INITIAL ACCESS ONLY 9:37:15 A 7 Fr Short sheath was inserted into the Right Femoral vein 9:38:11 DIAGNOSTIC WIRE .035 260cm J wire ([id number]) opened to sterile field. 9:39:06 A SWAN 7Fr Thermodilution cather (131F7P) was advanced over the wire and used for Procedure. 9:41:31 Right heart pressures obtained. 9:41:35 [place]-Hasmukh removed. 9:41:44 Sheath removed intact; hemostasis achieved with Manual Compression to the Right Femoral vein. 9:41:46 Procedure ended.(Physican Out) 9:41:58 Fluoroscopy time 01.40 minutes. 9:42:03 Fluoroscopy dose: 31 mGy 9:42:03 Flurop Dose total: 31 9:42:12 Sharps counted by scrub and verified by R.N. 9:42:13 Insertion/operative site no bleeding no hematoma. 9:42:19 Post-op/insertion site Right Femoral vein dressed using a 4 x 4 and Tegaderm. 9:42:26 Post right femoral vein:stable, clean and dry 9:42:28 Post Procedure Pulses reassessed and unchanged 9:42:30 Post-procedure physical assessment completed. ASA score P 2 - A patient with mild systemic disease as per Luis M Perez MD. 9:42:32 Post procedure rhythm: unchanged. 9:42:34 Estimated blood loss: 5 ml 9:42:35 Post procedure instruction explained to patient.Patient verbalizes understanding. 9:42:36 Patient needs reinforcement of post procedure teaching. 9:42:48 Procedure Complication : No complications 9:42:50 See physician's report for complete and final results. 9:43:14 Procedure type changed to Cath procedure, Diagnostic procedure, Right Heart, Right Heart Cath 9:43:33 Procedure and supply charges have been captured, reviewed, submitted and are correct. 9:43:50 Tegaderm 4 x 4 ([id number]) opened to sterile field. 9:44:50 Vital chart was stopped 9:44:52 Report given to PCU. 9:44:59 Patient transfered to PCU with Bed. 9:45:08 Procedure ended. 9:45:08 Full Disclosure recording stopped 9:45:12 End room use (Document Last) Device Usage Item Name Manufacture Quantity Catalog Hospital Part Current Minima l Lot# / Number Charge Number Stock Stock Serial# Code SHEATH 7FR Terumo 1 [id number] 183467 5 Dumont ([id number]) ACIST Hand Acist 1 07410 477418 566392 783078 5 Control Medical (43822) Systems Inc ACIST Manifold Acist 1 67300 546759 486019 029410 5 (09253) Medical Systems Inc Medline Cath Cardinal 1 [id number] 384742 [address] [facility] ([id number]) Bag Decanter Microtek 1 2002S 506588 51306 959460 5 (2001S) Medical Inc. ACIST Syringe Acist 1 41399 097636 365704 418909 20 (42227) Medical Systems Inc DIAGNOSTIC [facility] 1 542141 352823 059676 501909 30 WIRE .035 260cm J wire (988785) SWAN 7Fr Albert 1 131F7P 632208 33300 016361 3 Thermodilution Lifesciences cather (131F7P) Tegaderm 4 x 4 3M 1 1626W 462253 605865 561779 5 (1626W) Signature Audit [place] Stage Time Signature Unsigned Intra-Procedure 07/13/2018 Selma 9:45:28 AM Counts RT(R) Signatures Monitor : Selma Signature : Counts RT Date : Time : [facility] [address] [place] [address]
--- NOTE | ~2018-07-09 | PN ---
PATIENT:RICHY REGAN MEDICAL RECORD: [id number] LOCATION:D. D.212 ADMISSION DATE: 07/09/18 PROGRESS NOTE DATE OF SERVICE: 07/13/2018 SUBJECTIVE: This is a 78-year-old female who was admitted for weakness, shortness of breath, and cough, yellowish phlegm, shortness of breath. She also has a history of cutaneous lupus, on Plaquenil. The patient's cough has improved. The patient had a right heart catheterization this morning. After coming in, the patient had gotten up to go to the bathroom and had profuse bleeding. This has been stopped. The patient feels improved today. She had an uneventful night. There are no fever or chills, shortness of breath. There is decreasing coughing. PHYSICAL EXAMINATION: GENERAL: She is an elderly female who is in no acute distress. VITAL SIGNS: Temperature 97.7, heart rate of 99, respiratory rate 19, blood pressure 101/58. SHEENT: Unremarkable. The patient is normocephalic. Pupils are equal and reactive. NECK: Supple. There is no adenopathy. Trachea is midline. There is no thyromegaly. CHEST: Showed mild crackles. Some coughing. There is no accessory muscle use. HEART: Shows no jugular venous distention. No murmur or gallops. ABDOMEN: There is no tenderness or masses. Abdominal exam benign. EXTREMITIES: There is no clubbing, cyanosis or edema. ASSESSMENT: 1. Acute bronchitis. 2. Neutropenia, it is improving. White count has improved from 1 to 3.3. The patient is on isolation for leukopenia. 3. Systemic lupus erythematosus. MALIKA and anti-DNA serology is pending. 4. Anemia, mild, probably from chronic disease. PLAN: 1. Continue bronchodilators. 2. Continue antibiotics. 3. Add Mucinex. 4. Monitor white count. TRANSINT:[id number] Voice Confirmation ID: [id number] DOCUMENT ID: [id number] BLAIR MOORE at 1713 CC: [id number] DICTATION DATE: 07/13/18 854 MINISTER ASSISTANT: 07/13/18 9869 ADM IN [place] [id number] [place] [address]
[~2018-07-09 12:40] MED LIST changes: +ACETAMINOPHEN325 MG PO; +PREDNISONE20 MG PO
[2018-07-09 13:25] LABS: BASOPHILS 0.3 % (0-2); EOSINOPHILS 0 % (0-7); HEMATOCRIT 33.6 % (36.0-48.0); HEMOGLOBIN 11.7 g/dL (12-16); IMMATURE GRANULOCYTES 0.3 % (0-5); LYMPHOCYTES 10.2 % (15-50); MCH 31.3 pg (26.0-34.0); MCHC 34.8 g/dL (31.0-37.0); MCV 89.8 fL (80.0-100.0); MEAN PLATELET VOLUME 10.2 fL (7.4-10.4); MONOCYTES 27.2 % (2-11); PLATELET COUNT 177 10x3/uL (130-400); RBC 3.74 10x6/uL (4.00-5.40); RDW 11.9 % (11.5-14.5); WBC 3.9 10x3/uL (4.8-10.8)
[2018-07-09 13:45] LABS: ALBUMIN 3.5 g/dL (3.4-5.0); ANION GAP 8.8 mmol/L (8-16); BILIRUBIN - TOTAL 0.38 mg/dL (0.2-1.3); CALCIUM 7.9 mg/dL (8.5-10.1); CARBON DIOXIDE 27.2 mmol/L (21.0-32.0); CREATININE - SERUM 0.8 mg/dL (0.6-1.3); PROTEIN - SERUM 6.4 g/dL (6.4-8.2); TROPONIN-I 0.034 ng/mL (0.000-0.060)
[2018-07-10] VITALS: BP 125/59
[2018-07-10 04:00] VITALS: BP 139/64
[2018-07-10 08:09] VITALS: BP 143/69
[2018-07-10 11:46] VITALS: BP 137/52
[2018-07-10 14:06] LABS: C-REACTIVE PROTEIN 1.2 mg/dL (0.0-0.9)
[2018-07-10 14:47] LABS: ERYTHROCYTE SEDIMENTATION RATE 38 mm/hr (0-30)
[2018-07-10 15:14] VITALS: BP 148/73
[2018-07-10 16:21] LABS: APPEARANCE CLEAR (CLEAR); COLOR YELLOW (YELLOW)
[2018-07-10 16:22] LABS: BILIRUBIN NEGATIVE (NEGATIVE); GLUCOSE NEGATIVE (NEGATIVE); KETONE NEGATIVE (NEGATIVE); NITRITE NEGATIVE (NEGATIVE); PROTEIN NEGATIVE (NEGATIVE); UROBILINOGEN NORMAL (NORMAL)
[2018-07-10 20:01] VITALS: BP 156/72
[2018-07-11 00:36] VITALS: BP 146/60
[2018-07-11 05:01] VITALS: BP 139/65
[2018-07-11 05:17] LABS: BASOPHILS 0.3 % (0-2); EOSINOPHILS 0 % (0-7); HEMATOCRIT 29.4 % (36.0-48.0); HEMOGLOBIN 10.3 g/dL (12-16); IMMATURE GRANULOCYTES 0.7 % (0-5); LYMPHOCYTES 14.5 % (15-50); MCH 31.1 pg (26.0-34.0); MCV 88.8 fL (80.0-100.0); MEAN PLATELET VOLUME 10.2 fL (7.4-10.4); MONOCYTES 28.6 % (2-11); NEUTROPHILS 55.9 % (40-80); PLATELET COUNT 157 10x3/uL (130-400); RBC 3.31 10x6/uL (4.00-5.40); RDW 11.9 % (11.5-14.5)
[2018-07-11 05:22] LABS: WBC 2.9 10x3/uL (4.8-10.8)
[2018-07-11 05:26] LABS: ANION GAP 11.5 mmol/L (8-16); CALCIUM 7.4 mg/dL (8.5-10.1); CARBON DIOXIDE 24.9 mmol/L (21.0-32.0); CREATININE - SERUM 0.8 mg/dL (0.6-1.3); POTASSIUM - SERUM 3.4 mmol/L (3.5-5.1)
[2018-07-11 08:55] VITALS: BP 169/73
[2018-07-11 15:49] LABS: APPEARANCE CLEAR (CLEAR); BILIRUBIN NEGATIVE (NEGATIVE); COLOR YELLOW (YELLOW); GLUCOSE NEGATIVE (NEGATIVE); KETONE NEGATIVE (NEGATIVE); NITRITE NEGATIVE (NEGATIVE); PROTEIN NEGATIVE (NEGATIVE); SPECIFIC GRAVITY 1.015 (1.005-1.020); UROBILINOGEN NORMAL (NORMAL)
[2018-07-11 16:50] VITALS: BP 135/60
[2018-07-11 20:00] VITALS: BP 134/61
[2018-07-11 23:35] VITALS: BP 127/61
[2018-07-12 04:16] VITALS: BP 151/79
[2018-07-12 04:51] LABS: BASOPHILS 0 % (0-2); EOSINOPHILS 0 % (0-7); HEMATOCRIT 30.6 % (36.0-48.0); HEMOGLOBIN 10.7 g/dL (12-16); LYMPHOCYTES 18.8 % (15-50); MCH 30.8 pg (26.0-34.0); MCV 88.2 fL (80.0-100.0); MEAN PLATELET VOLUME 10.1 fL (7.4-10.4); MONOCYTES 11.9 % (2-11); NEUTROPHILS 69.3 % (40-80); PLATELET COUNT 146 10x3/uL (130-400); RBC 3.47 10x6/uL (4.00-5.40); RDW 11.8 % (11.5-14.5)
[2018-07-12 05:11] LABS: ANION GAP 14.1 mmol/L (8-16); CALCIUM 7.5 mg/dL (8.5-10.1); CARBON DIOXIDE 22.2 mmol/L (21.0-32.0); CREATININE - SERUM 0.8 mg/dL (0.6-1.3); POTASSIUM - SERUM 4.3 mmol/L (3.5-5.1)
[2018-07-12 07:49] VITALS: BP 142/81
[2018-07-12 11:03] VITALS: BP 132/72
[2018-07-12 21:56] VITALS: BP 131/66
[2018-07-13 05:42] VITALS: BP 146/66
[2018-07-13 05:47] LABS: BASOPHILS 0 % (0-2); EOSINOPHILS 0 % (0-7); HEMATOCRIT 31.4 % (36.0-48.0); HEMOGLOBIN 11.1 g/dL (12-16); IMMATURE GRANULOCYTES 0.3 % (0-5); LYMPHOCYTES 10.6 % (15-50); MCH 31.1 pg (26.0-34.0); MCHC 35.4 g/dL (31.0-37.0); MEAN PLATELET VOLUME 10.3 fL (7.4-10.4); MONOCYTES 31.9 % (2-11); NEUTROPHILS 57.2 % (40-80); RBC 3.57 10x6/uL (4.00-5.40); RDW 11.9 % (11.5-14.5)
[2018-07-13 05:56] LABS: ANION GAP 9.3 mmol/L (8-16); CALCIUM 7.8 mg/dL (8.5-10.1); CARBON DIOXIDE 24.4 mmol/L (21.0-32.0); CREATININE - SERUM 0.8 mg/dL (0.6-1.3); POTASSIUM - SERUM 3.7 mmol/L (3.5-5.1)
[2018-07-13 06:12] LABS: PLATELET COUNT 187 10x3/uL (130-400); WBC 3.3 10x3/uL (4.8-10.8)
[2018-07-13 07:47] VITALS: BP 131/64
[2018-07-13 07:57] LABS: APTT 32.5 SECONDS (22.8-39.4); INR 0.99 (0.85-1.17); PROTIME 12.5 SECONDS (11.6-15.0)
[2018-07-13 11:00] VITALS: BP 101/58
[2018-07-13 11:20] LABS: ANA REFLEX - ANTICHROMATIN ABS <0.2 AI (0.0-0.9); ANA REFLEX - CENTROMERE B ABS <0.2 AI (0.0-0.9); ANA REFLEX - DBL STRANDED DNA <1 IU/mL (0-9); ANA REFLEX - DIRECT Positive (Negative); ANA REFLEX - JO-1 AB <0.2 AI (0.0-0.9); ANA REFLEX - RNP ANTIBODIES <0.2 AI (0.0-0.9); ANA REFLEX - SCL-70 <0.2 AI (0.0-0.9); ANA REFLEX - SJOGRENS AB SSA >8.0 AI (0.0-0.9); ANA REFLEX - SJOGRENS AB SSB >8.0 AI (0.0-0.9); ANA REFLEX - SMITH AB 0.2 AI (0.0-0.9)
[2018-07-13 20:00] VITALS: BP 105/59
[2018-07-14] VITALS (13 sets, daily range): BP systolic 98–130; BP diastolic 44–68
[2018-07-14 03:11] LABS: MYCOPLASMA PNEUMO IGG 454 U/mL (0-99)
[2018-07-14 05:39] LABS: BASOPHILS 0.5 % (0-2); EOSINOPHILS 0 % (0-7); HEMATOCRIT 30.4 % (36.0-48.0); HEMOGLOBIN 10.5 g/dL (12-16); IMMATURE GRANULOCYTES 0.3 % (0-5); LYMPHOCYTES 16.2 % (15-50); MCH 31.2 pg (26.0-34.0); MCHC 34.5 g/dL (31.0-37.0); MCV 90.2 fL (80.0-100.0); MEAN PLATELET VOLUME 9.9 fL (7.4-10.4); MONOCYTES 13.4 % (2-11); NEUTROPHILS 69.6 % (40-80); PLATELET COUNT 171 10x3/uL (130-400); RBC 3.37 10x6/uL (4.00-5.40); RDW 12.2 % (11.5-14.5)
[2018-07-14 05:58] LABS: INR 0.94 (0.85-1.17); PROTIME 12.2 SECONDS (11.6-15.0)
[2018-07-14 05:59] LABS: APTT 24.6 SECONDS (22.8-39.4)
[2018-07-14 06:17] LABS: ALBUMIN 2.7 g/dL (3.4-5.0); ANION GAP 10.7 mmol/L (8-16); BILIRUBIN - TOTAL 0.37 mg/dL (0.2-1.3); CALCIUM 7.2 mg/dL (8.5-10.1); CARBON DIOXIDE 25.7 mmol/L (21.0-32.0); CREATININE - SERUM 0.8 mg/dL (0.6-1.3); MAGNESIUM - SERUM 1.4 mg/dL (1.8-2.4); POTASSIUM - SERUM 3.4 mmol/L (3.5-5.1); PROTEIN - SERUM 5.6 g/dL (6.4-8.2)
[2018-07-14 18:09] LABS: SPE - A/G RATIO 1.4 (0.7-1.7); SPE - ALPHA-1 GLOBULIN 0.2 g/dL (0.0-0.4); SPE - ALPHA-2 GLOBULIN 0.8 g/dL (0.4-1.0); SPE - BETA GLOBULIN 0.5 g/dL (0.7-1.3); SPE - GAMMA GLOBULIN 0.8 g/dL (0.4-1.8); SPE - M-SPIKE Not Observed g/dL (Not Observed); SPE - TOTAL PROTEIN 5.2 g/dL (6.0-8.5)
[2018-07-15] VITALS: BP 116/62
[2018-07-15 04:00] VITALS: BP 122/55
[2018-07-15 05:39] LABS: BASOPHILS 0 % (0-2); EOSINOPHILS 0 % (0-7); HEMATOCRIT 29.3 % (36.0-48.0); IMMATURE GRANULOCYTES 0.4 % (0-5); LYMPHOCYTES 9.2 % (15-50); MCH 30.7 pg (26.0-34.0); MCHC 34.1 g/dL (31.0-37.0); MCV 89.9 fL (80.0-100.0); MEAN PLATELET VOLUME 10.1 fL (7.4-10.4); MONOCYTES 17.6 % (2-11); NEUTROPHILS 72.8 % (40-80); PLATELET COUNT 172 10x3/uL (130-400); RBC 3.26 10x6/uL (4.00-5.40); RDW 12.2 % (11.5-14.5)
[2018-07-15 05:52] LABS: WBC 2.4 10x3/uL (4.8-10.8)
[2018-07-15 05:54] LABS: CALC OSMOLALITY 263 mosm/kg (275-300); CALCIUM 7.4 mg/dL (8.5-10.1); CARBON DIOXIDE 25.6 mmol/L (21.0-32.0); CHLORIDE - SERUM 100 mmol/L (98-107); CREATININE - SERUM 0.7 mg/dL (0.6-1.3); GLUCOSE 110 mg/dL (74-106); POTASSIUM - SERUM 3.7 mmol/L (3.5-5.1); SODIUM 132 mmol/L (136-145); UREA NITROGEN 8 mg/dL (7-18); eGFR NON AFRICAN AMERICAN 85 mL/min (90-120)
[2018-07-15 08:06] VITALS: BP 125/60
[2018-07-15 11:40] VITALS: BP 137/68
[2018-07-15 13:41] VITALS: Ht 165.1 cm; Wt 48.2 kg
[2018-07-15 15:21] VITALS: BP 132/64
[2018-07-15 20:00] VITALS: BP 122/57
[2018-07-16] VITALS: BP 128/65
[2018-07-16 04:00] VITALS: BP 119/59
[2018-07-16 08:11] VITALS: BP 136/65
[2018-07-16 11:31] VITALS: BP 123/66
[2018-07-16 12:08] LABS: BASOPHILS 0 % (0-2); EOSINOPHILS 0 % (0-7); HEMATOCRIT 31.2 % (36.0-48.0); HEMOGLOBIN 10.8 g/dL (12-16); IMMATURE GRANULOCYTES 0.3 % (0-5); MCH 31.1 pg (26.0-34.0); MCHC 34.6 g/dL (31.0-37.0); MCV 89.9 fL (80.0-100.0); MEAN PLATELET VOLUME 9.6 fL (7.4-10.4); MONOCYTES 7.3 % (2-11); NEUTROPHILS 83.4 % (40-80); RBC 3.47 10x6/uL (4.00-5.40); RDW 12.1 % (11.5-14.5)
[2018-07-16 12:17] LABS: PLATELET COUNT 214 10x3/uL (130-400)
[2018-07-16 12:40] LABS: ALBUMIN 3.1 g/dL (3.4-5.0); ALKALINE PHOSPHATASE 99 U/L (46-116); ALT (SGPT) 35 U/L (10-68); BILIRUBIN - TOTAL 0.53 mg/dL (0.2-1.3); CALC OSMOLALITY 263 mosm/kg (275-300); CARBON DIOXIDE 28.4 mmol/L (21.0-32.0); CHLORIDE - SERUM 98 mmol/L (98-107); CREATININE - SERUM 0.7 mg/dL (0.6-1.3); GLUCOSE 119 mg/dL (74-106); POTASSIUM - SERUM 3.3 mmol/L (3.5-5.1); PROTEIN - SERUM 6.5 g/dL (6.4-8.2); SODIUM 131 mmol/L (136-145); eGFR NON AFRICAN AMERICAN 85 mL/min (90-120)
[2018-07-16 12:41] LABS: UREA NITROGEN 12 mg/dL (7-18)
[2018-07-16 15:29] VITALS: BP 154/78
[2018-07-16 20:00] VITALS: BP 132/72
[2018-07-17] VITALS: BP 136/70
[2018-07-17 04:00] VITALS: BP 150/75
[2018-07-17 05:38] LABS: BASOPHILS 0 % (0-2); EOSINOPHILS 0 % (0-7); HEMATOCRIT 29.6 % (36.0-48.0); HEMOGLOBIN 10.1 g/dL (12-16); IMMATURE GRANULOCYTES 0.6 % (0-5); LYMPHOCYTES 10.3 % (15-50); MCH 30.7 pg (26.0-34.0); MCHC 34.1 g/dL (31.0-37.0); MONOCYTES 24.6 % (2-11); NEUTROPHILS 64.5 % (40-80); PLATELET COUNT 213 10x3/uL (130-400); RBC 3.29 10x6/uL (4.00-5.40); RDW 12.1 % (11.5-14.5)
[2018-07-17 05:39] LABS: WBC 3.4 10x3/uL (4.8-10.8)
[2018-07-17 05:51] LABS: ALBUMIN 2.9 g/dL (3.4-5.0); ALKALINE PHOSPHATASE 78 U/L (46-116); ALT (SGPT) 31 U/L (10-68); BILIRUBIN - TOTAL 0.41 mg/dL (0.2-1.3); CALC OSMOLALITY 263 mosm/kg (275-300); CALCIUM 7.8 mg/dL (8.5-10.1); CARBON DIOXIDE 27.5 mmol/L (21.0-32.0); CHLORIDE - SERUM 100 mmol/L (98-107); CREATININE - SERUM 0.6 mg/dL (0.6-1.3); GLUCOSE 88 mg/dL (74-106); POTASSIUM - SERUM 3.5 mmol/L (3.5-5.1); PROTEIN - SERUM 6.4 g/dL (6.4-8.2); SODIUM 133 mmol/L (136-145); UREA NITROGEN 11 mg/dL (7-18); eGFR NON AFRICAN AMERICAN > 90 mL/min (90-120)
[2018-07-17 09:15] VITALS: BP 143/63
[2018-07-17 17:00] VITALS: BP 137/68
[2018-07-17 20:38] VITALS: BP 137/67
[2018-07-18 00:30] VITALS: BP 145/76
[2018-07-18 04:30] VITALS: BP 146/76
[2018-07-18 04:31] LABS: BASOPHILS 0 % (0-2); EOSINOPHILS 0 % (0-7); IMMATURE GRANULOCYTES 1.2 % (0-5); LYMPHOCYTES 14.9 % (15-50); MCH 30.7 pg (26.0-34.0); MCHC 34.4 g/dL (31.0-37.0); MCV 89.4 fL (80.0-100.0); MEAN PLATELET VOLUME 10.1 fL (7.4-10.4); MONOCYTES 20.1 % (2-11); NEUTROPHILS 63.8 % (40-80); PLATELET COUNT 195 10x3/uL (130-400); RBC 3.58 10x6/uL (4.00-5.40); WBC 4.2 10x3/uL (4.8-10.8)
[2018-07-18 04:44] LABS: ALBUMIN 3.2 g/dL (3.4-5.0); ALKALINE PHOSPHATASE 81 U/L (46-116); ALT (SGPT) 37 U/L (10-68); BILIRUBIN - TOTAL 0.41 mg/dL (0.2-1.3); CALC OSMOLALITY 258 mosm/kg (275-300); CALCIUM 8.2 mg/dL (8.5-10.1); CARBON DIOXIDE 27.6 mmol/L (21.0-32.0); CHLORIDE - SERUM 96 mmol/L (98-107); CREATININE - SERUM 0.7 mg/dL (0.6-1.3); GLUCOSE 96 mg/dL (74-106); PROTEIN - SERUM 6.4 g/dL (6.4-8.2); SODIUM 129 mmol/L (136-145); UREA NITROGEN 12 mg/dL (7-18); eGFR NON AFRICAN AMERICAN 85 mL/min (90-120)
[2018-07-18 04:47] LABS: POTASSIUM - SERUM 2.9 mmol/L (3.5-5.1)
[2018-07-18 08:51] VITALS: BP 142/68
[2018-07-18 12:20] VITALS: BP 140/64
[2018-07-18 16:55] VITALS: BP 143/73
[2018-07-18 20:20] VITALS: BP 134/62
[2018-07-19 00:30] VITALS: BP 141/68
[2018-07-19 04:30] VITALS: BP 141/67
[2018-07-19 05:22] LABS: BASOPHILS 0 % (0-2); EOSINOPHILS 0 % (0-7); HEMATOCRIT 30.5 % (36.0-48.0); HEMOGLOBIN 10.6 g/dL (12-16); IMMATURE GRANULOCYTES 1.8 % (0-5); LYMPHOCYTES 11.7 % (15-50); MCH 30.9 pg (26.0-34.0); MCHC 34.8 g/dL (31.0-37.0); MCV 88.9 fL (80.0-100.0); MEAN PLATELET VOLUME 9.9 fL (7.4-10.4); MONOCYTES 22.9 % (2-11); NEUTROPHILS 63.6 % (40-80); PLATELET COUNT 220 10x3/uL (130-400); RBC 3.43 10x6/uL (4.00-5.40); RDW 12.1 % (11.5-14.5); WBC 3.9 10x3/uL (4.8-10.8)
[2018-07-19 05:47] LABS: ALBUMIN 2.9 g/dL (3.4-5.0); ALKALINE PHOSPHATASE 73 U/L (46-116); ALT (SGPT) 30 U/L (10-68); BILIRUBIN - TOTAL 0.36 mg/dL (0.2-1.3); CALC OSMOLALITY 258 mosm/kg (275-300); CALCIUM 8.2 mg/dL (8.5-10.1); CARBON DIOXIDE 25.3 mmol/L (21.0-32.0); CHLORIDE - SERUM 96 mmol/L (98-107); CREATININE - SERUM 0.7 mg/dL (0.6-1.3); GLUCOSE 90 mg/dL (74-106); POTASSIUM - SERUM 3.6 mmol/L (3.5-5.1); PROTEIN - SERUM 5.9 g/dL (6.4-8.2); SODIUM 129 mmol/L (136-145); UREA NITROGEN 12 mg/dL (7-18); eGFR NON AFRICAN AMERICAN 85 mL/min (90-120)
[2018-07-19 07:47] VITALS: BP 146/75
[2018-07-19] MEDS ORDERED: NORVASC5 MG PO (09:32)
[2018-07-19] MEDS ORDERED: REVATIO20 MG PO (09:32)
[2018-07-19] MEDS ORDERED: PREDNISONE10 MG PO (09:35)
[2018-07-19 11:18] VITALS: BP 139/76
== END 2018-07-19 13:06 | DRG 189 ==
LOC: D.ER 12:40 → D.EDHOLD 16:24 → D.M2 16:24 → D.EDHOLD 16:38 → D.M2 16:50
PROVIDERS: Family Medicine; Internal Medicine Hematology & Oncology; Internal Medicine Interventional Cardiology; Internal Medicine Nephrology; Internal Medicine Pulmonary Disease; Radiology Vascular & Interventional Radiology; Specialist
PROC: 4A023N6 Measurement of Cardiac Sampling and Pressure, Right Heart, Percutaneous Approach (ICD-10-PCS; principal; 2018-07-13 09:02)
PROC: 07DR3ZX Extraction of Iliac Bone Marrow, Percutaneous Approach, Diagnostic (ICD-10-PCS; 2018-07-14)
DX: J96.01 Acute respiratory failure with hypoxia (principal); E87.1 Hypo-osmolality and hyponatremia; E85.9 Amyloidosis, unspecified; E03.9 Hypothyroidism, unspecified; M32.9 Systemic lupus erythematosus, unspecified; J84.89 Other specified interstitial pulmonary diseases; I08.3 Combined rheumatic disorders of mitral, aortic and tricuspid valves; D50.9 Iron deficiency anemia, unspecified; J30.9 Allergic rhinitis, unspecified; I10 Essential (primary) hypertension; K21.9 Gastro-esophageal reflux disease without esophagitis; D70.9 Neutropenia, unspecified; M35.00 Sjogren syndrome, unspecified

== ENCOUNTER → 2018-11-25 12:57 | Outpatient (CLI) | payer MEDICARE, OTHER ==
[2018-07-15 13:41] VITALS: BMI 17.9
[~2018-11-25 12:57] MED LIST changes: +PREDNISONE10 MG PO; +REVATIO20 MG PO
== END | disposition home or self-care (01) ==
LOC: D.US 12:57
DX: E85.9 Amyloidosis, unspecified (principal); I73.9 Peripheral vascular disease, unspecified

== ENCOUNTER 2018-12-01 07:10 | Inpatient (IN) | payer MEDICARE, BC ==
[2018-11-30 10:21] LABS: BASOPHILS 0.5 % (0-2); EOSINOPHILS 0.2 % (0-7); HEMATOCRIT 34.1 % (36.0-48.0); HEMOGLOBIN 11.5 g/dL (12-16); IMMATURE GRANULOCYTES 0.2 % (0-5); LYMPHOCYTES 22.5 % (15-50); MCHC 33.7 g/dL (31.0-37.0); MCV 91.9 fL (80.0-100.0); MEAN PLATELET VOLUME 9.8 fL (7.4-10.4); MONOCYTES 12.2 % (2-11); NEUTROPHILS 64.4 % (40-80); PLATELET COUNT 178 10x3/uL (130-400); RBC 3.71 10x6/uL (4.00-5.40); RDW 12.5 % (11.5-14.5); WBC 4.3 10x3/uL (4.8-10.8)
[2018-11-30 10:40] LABS: ANION GAP 14.3 mmol/L (8-16); CALCIUM 8.5 mg/dL (8.5-10.1); CARBON DIOXIDE 26.3 mmol/L (21.0-32.0); CREATININE - SERUM 0.8 mg/dL (0.6-1.3); POTASSIUM - SERUM 3.6 mmol/L (3.5-5.1)
[2018-11-30 10:41] LABS: INR 0.89 (0.85-1.17); PROTIME 11.5 SECONDS (11.6-15.0)
[2018-11-30 10:42] LABS: APTT 28.4 SECONDS (22.8-39.4)
[~2018-12-01] VITALS: Ht 165.1 cm; Wt 52.2 kg
[~2018-12-01 07:10] MED LIST changes: +EVISTA60 MG; +OMEPRAZOLE20 M1 PO; -OMEPRAZOLE40 MG PO; +PEPCID AC20 MG PO
[2018-12-01] MEDS ORDERED: NORVASC5 MG PO (07:52)
[2018-12-01 07:59] VITALS: BMI 19.1
[2018-12-01] MEDS ORDERED: HYDROCODON-ACE1 EAC7 PO (11:53)
[2018-12-01 14:34] VITALS: BP 126/60; BMI 19.1
[2018-12-01 16:48] VITALS: BP 126/60
[2018-12-01 16:54] VITALS: BP 126/60
[2018-12-01 20:00] VITALS: BP 131/67
[2018-12-02 04:00] VITALS: BP 131/71
[2018-12-02 09:11] VITALS: BP 152/64
[2018-12-02 09:37] LABS: CALC OSMOLALITY 275 mosm/kg (275-300); CALCIUM 8.4 mg/dL (8.5-10.1); CARBON DIOXIDE 29.1 mmol/L (21.0-32.0); CHLORIDE - SERUM 99 mmol/L (98-107); CREATININE - SERUM 0.7 mg/dL (0.6-1.3); GLUCOSE 124 mg/dL (74-106); POTASSIUM - SERUM 3.1 mmol/L (3.5-5.1); SODIUM 138 mmol/L (136-145); UREA NITROGEN 11 mg/dL (7-18); eGFR NON AFRICAN AMERICAN 85 mL/min (90-120)
[2018-12-02 09:51] LABS: HEMATOCRIT 35.4 % (36.0-48.0); HEMOGLOBIN 12.2 g/dL (12-16); LYMPHOCYTES 12.5 % (15-50); MCH 31.6 pg (26.0-34.0); MCHC 34.5 g/dL (31.0-37.0); MCV 91.7 fL (80.0-100.0); MEAN PLATELET VOLUME 10.2 fL (7.4-10.4); NEUTROPHILS 75.8 % (40-80); PLATELET COUNT 167 10x3/uL (130-400); RBC 3.86 10x6/uL (4.00-5.40); RDW 12.5 % (11.5-14.5)
[2018-12-02 09:55] LABS: WBC 6.4 10x3/uL (4.8-10.8)
[2018-12-02 12:06] VITALS: Ht 165.1 cm; Wt 52.2 kg
[2018-12-02 14:16] LABS: APTT 25.6 SECONDS (22.8-39.4)
[2018-12-02 14:28] LABS: INR 0.93 (0.85-1.17)
[2018-12-02 20:29] VITALS: BP 140/59
[2018-12-03 08:49] VITALS: BP 135/59
--- NOTE | 2018-12-03 09:18 | MORECARE ---
CASE MANAGEMENT DISCHARGE SUMMARY PATIENT: RICHY CHRISTENSEN UNIT: [id number] ADM DATE: 12/02/18 AGE: 78 : 39 SEX: F ROOM/BED: D.2228 AUTHOR: SHANIQUA CASTILLO PHYSICIAN: REFERRING PHYSICIAN: DOTTY SANCHEZ MD DATE OF SERVICE: 12/03/18 Discharge Plan Patient Name: RICHY CHRISTENSEN [facility] 1940 Planned Disposition: Home Anticipated Discharge Date: 12/03/18 Discharge Date: Expected LOS: 1 Initial Reviewer: [email or web address] Initial Review Date: 12/03/2018 Generated: 12/03/18 10:18 am DCPIA - Discharge Planning Initial Assessment Updated by [email or web address]: Huyen Saha on 12/03/18 9:16 am * Is the patient Alert and Oriented? Yes * How many steps to enter\exit or inside your home? 0/0 * PCP Dr. Tapia * Pharmacy [facility] * Preadmission Environment Home Alone * ADLs Partial Dependent * Partial ADLs (Assistance needed) Ambulation * Equipment Walker * List name and contact numbers for known caregivers / representatives who currently or will assist patient after discharge: Joel Christensen - [facility] - [phone] * Verbal permission to speak to the caregivers and representatives has been obtained from the patient. Yes * Community resources currently utilized Home Health * Please name any agencies selected above. [facility]? * Additional services required to return to the preadmission environment? No * Can the patient safely return to the preadmission environment? Yes * Has this patient been hospitalized within the prior 30 days at any hospital? No Patient Name: RICHY CHRISTENSEN Page [id number] at 0918 All edits/amendments must be made on the electronic document DICTATION DATE: 12/03/18917 STONE DRILLER HELPER: GLEN 12/03/18917 RPT#: [id number] DC DATE: STATUS: ADM IN [facility] [address] [place] [address] END OF REPORT
--- NOTE | 2018-12-03 09:33 | MORECARE ---
CASE MANAGEMENT DISCHARGE SUMMARY PATIENT: RICHY CHRISTENSEN UNIT: [id number] ADM DATE: 12/02/18 AGE: 78 : 39 SEX: F ROOM/BED: D.2228 AUTHOR: ANNA,DOC PHYSICIAN: REFERRING PHYSICIAN: DOTTY SANCHEZ MD DATE OF SERVICE: 12/03/18 Discharge Plan Patient Name: RICHY CHRISTENSEN Facility: [facility]:[place] : 1940 Planned Disposition: Home Anticipated Discharge Date: 12/03/18 Discharge Date: Expected LOS: 1 Initial Reviewer: [email or web address] Initial Review Date: 12/03/2018 Generated: 12/03/18 10:33 am Comments DCP- Discharge Planning Updated by [email or web address]: Huyen Saha on 12/03/18 8:[address] Patient Name: RICHY CHRISTENSEN Admission Status: Elective Accout number: [id number] Admission Date: 12-02-2018 : 1940 Admission Diagnosis: Attending: DOTTY SANCHEZ Current LOS: 1 Anticipated DC Date: 12-03-2018 Planned Disposition: Home Primary Insurance: MEDICARE A & B Discharge Planning Comments: CM met with patient to discuss discharge planning. She lives alone. States she is independent with all ADL's and IADL's. States her son lives close by and comes almost every day to check on her. States she uses a walker for ambulation. States a nurse from [employer] comes weekly to check on her well being. Declines need for rehab or HHS. No needs identified. States her son will take her home on discharge today. She is no longer wearing any oxygen at this time. CM will continue to follow and assist with discharge planning/needs. Pathology Manager: Huyen Saha DCPIA - Discharge Planning Initial Assessment Updated by [email or web address]: Huyen Saha on 12/03/18 9:16 am * Is the patient Alert and Oriented? Yes * How many steps to enter\exit or inside your home? 0/0 * PCP Dr. Tapia * Pharmacy [facility] * Preadmission Environment Home Alone * ADLs Partial Dependent * Partial ADLs (Assistance needed) Ambulation * Equipment Walker * List name and contact numbers for known caregivers / representatives who currently or will assist patient after discharge: Joel Christensen - son - [phone] * Verbal permission to speak to the caregivers and representatives has been obtained from the patient. Yes * Community resources currently utilized Home Health * Please name any agencies selected above. [facility]? * Additional services required to return to the preadmission environment? No * Can the patient safely return to the preadmission environment? Yes * Has this patient been hospitalized within the prior 30 days at any hospital? No Last DP export: 12/03/18 8:18 a Patient Name: RICHY CHRISTENSEN Page [phone] at 0933 All edits/amendments must be made on the electronic document DICTATION DATE: 12/03/18932 OPERATIONS SUPPORT ANALYST: GLEN 12/03/18932 RPT#: [id number] DC DATE: STATUS: ADM IN [facility] [address] [place] [address] END OF REPORT
--- NOTE | 2018-12-03 17:08 | MORECARE ---
CASE MANAGEMENT DISCHARGE SUMMARY PATIENT: RICHY CHRISTENSEN UNIT: [id number] ADM DATE: 12/02/18 AGE: 78 : 39 SEX: F ROOM/BED: D.2228 AUTHOR: ANNA,DOC PHYSICIAN: REFERRING PHYSICIAN: DOTTY SANCHEZ MD DATE OF SERVICE: 12/03/18 Discharge Plan Patient Name: RICHY CHRISTENSEN Facility: [facility]:[place] : 1940 Planned Disposition: Home Anticipated Discharge Date: 12/03/18 Discharge Date: 12/03/2018 Expected LOS: 1 Initial Reviewer: [email or web address] Initial Review Date: 12/03/2018 Generated: 12/03/18 6:08 pm Comments DCP- Discharge Planning Updated by [email or web address]: Huyen Saha on 12/03/18 8:[address] Patient Name: RICHY CHRISTENSEN Admission Status: Elective Accout number: [id number] Admission Date: 12-02-2018 : 1940 Admission Diagnosis: Attending: DOTTY SANCHEZ Current LOS: 1 Anticipated DC Date: 12-03-2018 Planned Disposition: Home Primary Insurance: MEDICARE A & B Discharge Planning Comments: CM met with patient to discuss discharge planning. She lives alone. States she is independent with all ADL's and IADL's. States her son lives close by and comes almost every day to check on her. States she uses a walker for ambulation. States a nurse from [email or web address] comes weekly to check on her well being. Declines need for rehab or HHS. No needs identified. States her son will take her home on discharge today. She is no longer wearing any oxygen at this time. CM will continue to follow and assist with discharge planning/needs. Buckler And Lacer: Huyen Saha DCPIA - Discharge Planning Initial Assessment Updated by [email or web address]: Huyen Saha on 12/03/18 9:16 am * Is the patient Alert and Oriented? Yes * How many steps to enter\exit or inside your home? 0/0 * PCP Dr. Tapia * Pharmacy [facility] * Preadmission Environment Home Alone * ADLs Partial Dependent * Partial ADLs (Assistance needed) Ambulation * Equipment Walker * List name and contact numbers for known caregivers / representatives who currently or will assist patient after discharge: Joel Christensen - son - [phone] * Verbal permission to speak to the caregivers and representatives has been obtained from the patient. Yes * Community resources currently utilized Home Health * Please name any agencies selected above. [facility]? * Additional services required to return to the preadmission environment? No * Can the patient safely return to the preadmission environment? Yes * Has this patient been hospitalized within the prior 30 days at any hospital? No Last DP export: 12/03/18 8:33 a Patient Name: RICHY CHRISTENSEN Page [phone] at 1708 All edits/amendments must be made on the electronic document DICTATION DATE: 12/03/181706 CHIEF TECHNICIAN: GLEN 12/03/181706 RPT#: [id number] DC DATE:12/03/18 STATUS: DIS IN [facility] [address] [place] [address] END OF REPORT
== END 2018-12-03 10:43 | disposition home or self-care (01) | DRG 982 ==
LOC: D.OPS 07:10 → D.MS 07:10 → D.PAN 09:30 → D.OPS 09:45 → D.MS 14:18 → D.OPS 12-02 11:39 → D.MS 12-02 11:40
PROVIDERS: Anesthesiology; Specialist; ADMIT Surgery
PROC: 05H633Z Insertion of Infusion Device into Left Subclavian Vein, Percutaneous Approach (ICD-10-PCS; 2018-12-01)
PROC: 0JH60WZ Insertion of Totally Implantable Vascular Access Device into Chest Subcutaneous Tissue and Fascia, Open Approach (ICD-10-PCS; principal; 2018-12-01 09:30)
PROC: 3E0L3SF Introduction of Other Gas into Pleural Cavity, Percutaneous Approach (ICD-10-PCS; 2018-12-02)
DX: E85.9 Amyloidosis, unspecified (principal); J93.9 Pneumothorax, unspecified

== ENCOUNTER → 2018-12-30 12:18 | Outpatient (CLI) | payer MEDICARE, BC ==
[2018-12-02 12:06] VITALS: BMI 19.1
[~2018-12-30 12:18] MED LIST changes: +HYDROCODON-ACE1 EAC7 PO
== END | disposition home or self-care (01) ==
LOC: D.CT 12:18
DX: E85.9 Amyloidosis, unspecified (principal)

== ENCOUNTER → 2019-01-10 14:51 | Outpatient (CLI) | payer MEDICARE, BC ==
[2018-12-02 12:06] VITALS: BMI 19.1
== END | disposition home or self-care (01) ==
LOC: D.CT 14:51
DX: I73.9 Peripheral vascular disease, unspecified (principal)

== ENCOUNTER → 2019-04-12 09:33 | Outpatient (CLI) | payer MEDICARE, BC ==
[2018-12-02 12:06] VITALS: BMI 19.1
== END | disposition home or self-care (01) ==
LOC: D.RT 09:33
PROVIDERS: ATTEND Internal Medicine Pulmonary Disease
DX: R06.2 Wheezing (principal)

== ENCOUNTER 2019-07-12 10:33 | Inpatient (IN) | payer MEDICARE, BC ==
[~2019-07-12] VITALS: Ht 165.1 cm; Wt 53.1 kg
--- NOTE | 2019-07-12 12:25 | NUR ---
RECEIVED PT TO ROOM 1206 VIA WHEELCHAIR, PT A/O X4, RESP EVEN AND NONLABORED ON RA. ORIENTED PT TO ROOM AND CALL LIGHT. WILL ASSESS PT AND START PLAN OF CARE.
[2019-07-12] MEDS ORDERED: PREDNISONE5 MG PO (12:51)
[2019-07-12 12:52] VITALS: BMI 19.5
[2019-07-12 13:18] LABS: BASOPHILS 0.2 % (0-2); EOSINOPHILS 0 % (0-7); HEMATOCRIT 33.6 % (36.0-48.0); IMMATURE GRANULOCYTES 0.2 % (0-5); LYMPHOCYTES 12.2 % (15-50); MCH 32.4 pg (26.0-34.0); MCHC 35.7 g/dL (31.0-37.0); MCV 90.8 fL (80.0-100.0); MEAN PLATELET VOLUME 9.6 fL (7.4-10.4); MONOCYTES 16.9 % (2-11); NEUTROPHILS 70.5 % (40-80); PLATELET COUNT 179 10x3/uL (130-400); RDW 12.6 % (11.5-14.5); WBC 4.5 10x3/uL (4.8-10.8)
[2019-07-12 13:24] LABS: ALBUMIN 3.2 g/dL (3.4-5.0); ANION GAP 14.5 mmol/L (8-16); BILIRUBIN - TOTAL 0.4 mg/dL (0.2-1.3); CALCIUM 8.8 mg/dL (8.5-10.1); CARBON DIOXIDE 24.8 mmol/L (21.0-32.0); CREATININE - SERUM 0.8 mg/dL (0.6-1.3); POTASSIUM - SERUM 3.3 mmol/L (3.5-5.1)
--- NOTE | 2019-07-12 15:53 | MORECARE ---
CASE MANAGEMENT DISCHARGE SUMMARY PATIENT: RICHY CLEMONS UNIT: [id number] ADM DATE: 07/12/19 AGE: 79 : 39 SEX: F ROOM/BED: D.1206 AUTHOR: ANNA,DOC PHYSICIAN: REFERRING PHYSICIAN: RACHANA LONG MD DATE OF SERVICE: 07/12/19 Discharge Plan Patient Name: RICHY CLEMONS Facility: [facility]:[place] : 1940 Planned Disposition: Home Anticipated Discharge Date: 07/14/19 Discharge Date: Expected LOS: 2 Initial Reviewer: [email or web address] Initial Review Date: 07/12/2019 Generated: 07/12/19 4:53 pm Comments DCP- Discharge Planning Updated by [email or web address]: Clementine Headley on 07/12/19 2:[address] Patient Name: RICYH CLEMONS Admission Status: Elective Accout number: [id number] Admission Date: 07-12-2019 : 1940 Admission Diagnosis: Attending: RACHANA LONG Current LOS: 1 Anticipated DC Date: 07-14-2019 Planned Disposition: Home Primary Insurance: MEDICARE A & B Discharge Planning Comments: DC PLAN: Return home alone. Son lives close by. DC NEEDS: Denied dc needs at this time. CM met with patient to complete initial dc planning assessment. CM educated patient on the CM role and verbal consent given by patient to complete assessment. CM verified patient's address, phone number, and emergency contact phone numbers. Patient lives home alone and reports she is independent in her care at home. At discharge patient plans to return home alone and feels this is a safe discharge. CM discussed availability of home health, rehab services, and medical equipment. Patient denied known discharge needs at this time. Patient reports her son will transport her home at time of discharge. CM will continue to follow and will assist as needed with dc plans/needs. Tool Die Maker: Clementine Headley RN, [facility] DCPIA - Discharge Planning Initial Assessment Updated by [email or web address]: Clementine Headley on 07/12/19 3:50 pm * Is the patient Alert and Oriented? Yes * How many steps to enter\exit or inside your home? none * PCP Dr. Long * Pharmacy [facility] * Preadmission Environment Home Alone * ADLs Independent * Equipment Walker * List name and contact numbers for known caregivers / representatives who currently or will assist patient after discharge: Joel clemons - son - [phone] * Verbal permission to speak to the caregivers and representatives has been obtained from the patient. Yes * Community resources currently utilized None * Additional services required to return to the preadmission environment? No * Can the patient safely return to the preadmission environment? Yes * Has this patient been hospitalized within the prior 30 days at any hospital? No Patient Name: RICHY CLEMONS Page [phone] at 1553 All edits/amendments must be made on the electronic document DICTATION DATE: 07/12/191551 INTERIOR BLOCK WIRER: GLEN 07/12/191551 RPT#: [id number] DC DATE: STATUS: ADM IN [facility] [address] [place] [address] END OF REPORT
[2019-07-12 19:00] VITALS: BP 154/71
--- NOTE | 2019-07-12 19:15 | NUR ---
REC'D TO CARE, INTERIOR DESIGN PROGRAM CHAIR PER FLOWSHEET. PT ASSISTED UP TO BR, GAIT SLIGHTLY UNSTEADY, VOIDED AND YU-CARE INDEPENDENTLY. BACK TO BED WITH ASSIST. DENIES NEEDS. C/L IN REACH.
--- NOTE | 2019-07-12 22:00 | NUR ---
PT INSTRUCTED ON I.S. PULLED 500. GOOD COUGH, NON-PRODUCTIVE.
[2019-07-12 23:21] VITALS: BP 128/61
--- NOTE | 2019-07-13 01:00 | NUR ---
UP TO BR WITH ASSISTED, VOIDED, NO BM. YU-CARE PER PT AND BACK TO BED.
--- NOTE | 2019-07-13 03:20 | NUR ---
UP TO BR, THEN BACK TO BED. VSS. I.S. 250-500 WITH ELECTROTYPE SERVICER COUGH.
[2019-07-13 03:44] VITALS: BP 146/71
--- NOTE | 2019-07-13 05:00 | NUR ---
PT UP TO BR, VOIDED, NO BM. BACK TO BED. PCXR DONE.
[2019-07-13 06:04] LABS: HEMATOCRIT 30.8 % (36.0-48.0); HEMOGLOBIN 10.8 g/dL (12-16); MCH 31.7 pg (26.0-34.0); MCHC 35.1 g/dL (31.0-37.0); MCV 90.3 fL (80.0-100.0); MEAN PLATELET VOLUME 9.4 fL (7.4-10.4); PLATELET COUNT 168 10x3/uL (130-400); RBC 3.41 10x6/uL (4.00-5.40); RDW 12.5 % (11.5-14.5); WBC 4.5 10x3/uL (4.8-10.8)
[2019-07-13 06:27] LABS: ALBUMIN 2.7 g/dL (3.4-5.0); ALKALINE PHOSPHATASE 79 U/L (46-116); ALT (SGPT) 16 U/L (10-68); BILIRUBIN - TOTAL 0.36 mg/dL (0.2-1.3); C-REACTIVE PROTEIN 2.9 mg/dL (0.0-0.9); CALC OSMOLALITY 256 mosm/kg (275-300); CALCIUM 8.2 mg/dL (8.5-10.1); CARBON DIOXIDE 23.1 mmol/L (21.0-32.0); CHLORIDE - SERUM 96 mmol/L (98-107); CREATININE - SERUM 0.7 mg/dL (0.6-1.3); GLUCOSE 94 mg/dL (74-106); POTASSIUM - SERUM 3.2 mmol/L (3.5-5.1); PROTEIN - SERUM 5.9 g/dL (6.4-8.2); SODIUM 129 mmol/L (136-145); UREA NITROGEN 7 mg/dL (7-18); eGFR NON AFRICAN AMERICAN 85 mL/min (90-120)
[2019-07-13 07:30] VITALS: BP 155/75
--- NOTE | 2019-07-13 07:59 | NUR ---
PT AWAKE, ALERT, AND ORIENTED. VSS AT THIS TIME. PT AMBULATED WITH STANDY ASSISTANCE TO THE RESTROOM. ASSESSMENT COMPLETE. RR EVEN AND UNLABORED. NONPRODUCTIVE COUGH PRESENT. PT EDUCATED TO TCDB. WILL CONTINUE TO MONITOR.
[2019-07-13 10:03] VITALS: BMI 19.4
[2019-07-13 10:03] LABS: ANISOCYTOSIS OCC; LYMPHOCYTES 17 % (15-50); MONOCYTES 27 % (2-11); NEUTROPHILS 55 % (40-80); PLATELET ESTIMATE NORMAL
--- NOTE | 2019-07-13 13:20 | NUR ---
I have reviewed this patient and I concur with the Shift Assessment completed by the Licensed Practical Nurse today this shift.
--- NOTE | 2019-07-13 15:12 | NUR ---
OT NOTE: PT COMPLETED ADL MOB TASKS WITH SBA. THANK YOU, TESS JIMENEZ
--- NOTE | 2019-07-13 17:54 | MORECARE ---
CASE MANAGEMENT DISCHARGE SUMMARY PATIENT: RICHY CLEMONS UNIT: [id number] ADM DATE: 07/13/19 AGE: 79 : 39 SEX: F ROOM/BED: D.1206 AUTHOR: ANNA,DOC PHYSICIAN: REFERRING PHYSICIAN: RACHANA LONG MD DATE OF SERVICE: 07/13/19 Discharge Plan Patient Name: RICHY CLEMONS Facility: [facility]:[place] : 1940 Planned Disposition: Home Anticipated Discharge Date: 07/14/19 Discharge Date: Expected LOS: 1 Initial Reviewer: [email or web address] Initial Review Date: 07/12/2019 Generated: 07/13/19 6:54 pm DCP- Discharge Planning Updated by [email or web address]: Clementine Headley on 07/12/19 2:[address] Patient Name: RICHY CLEMONS Admission Status: Elective Accout number: [id number] Admission Date: 07-12-2019 : 1940 Admission Diagnosis: Attending: RACHANA LONG Current LOS: 1 Anticipated DC Date: 07-14-2019 Planned Disposition: Home Primary Insurance: MEDICARE A & B Discharge Planning Comments: DC PLAN: Return home alone. Son lives close by. DC NEEDS: Denied dc needs at this time. CM met with patient to complete initial dc planning assessment. CM educated patient on the CM role and verbal consent given by patient to complete assessment. CM verified patient's address, phone number, and emergency contact phone numbers. Patient lives home alone and reports she is independent in her care at home. At discharge patient plans to return home alone and feels this is a safe discharge. CM discussed availability of home health, rehab services, and medical equipment. Patient denied known discharge needs at this time. Patient reports her son will transport her home at time of discharge. CM will continue to follow and will assist as needed with dc plans/needs. Engineering Technician: Clementine Headley RN, [facility] DCPIA - Discharge Planning Initial Assessment Updated by [email or web address]: Clementine Headley on 07/12/19 3:50 pm * Is the patient Alert and Oriented? Yes * How many steps to enter\exit or inside your home? none * PCP Dr. Long * Pharmacy [facility] * Preadmission Environment Home Alone * ADLs Independent * Equipment Walker * List name and contact numbers for known caregivers / representatives who currently or will assist patient after discharge: Joel clemons - son - [phone] * Verbal permission to speak to the caregivers and representatives has been obtained from the patient. Yes * Community resources currently utilized None * Additional services required to return to the preadmission environment? No * Can the patient safely return to the preadmission environment? Yes * Has this patient been hospitalized within the prior 30 days at any hospital? No Last DP export: 07/12/19 2:53 p Patient Name: RICHY CLEMONS Page [phone] at 1754 All edits/amendments must be made on the electronic document DICTATION DATE: 07/13/191752 PANTS MAKER: GLEN 07/13/191752 RPT#: [id number] DC DATE: STATUS: ADM IN [facility] [address] [place] [address] END OF REPORT
--- NOTE | 2019-07-13 18:24 | NUR ---
PT RUNNING A SLIGHT TEMP OF 100.1, JEFFREY CASH APRN NOTIFIED
[2019-07-13 18:28] VITALS: BP 125/53
[2019-07-13 19:00] VITALS: BP 147/65
--- NOTE | 2019-07-13 19:15 | NUR ---
REC'D TO CARE, NEWSPAPER REPORTER PER FLOWSHEET. PT AWAKE AND ORIENTED. VSS. TEMP NOW 99.5. REDDENED "LUPUS" AREAS TO FACE AND CHEST NOTED. L CHEST INFUSAPORT, C/D/I. PT UP TO BR WITH MINIMAL ASSIST, INDEPENDENT WITH TOILETING, YU-CARE AND TURNING. DENIES NEEDS. C/L IN REACH.
[2019-07-13 23:00] VITALS: BP 144/69
--- NOTE | 2019-07-13 23:00 | NUR ---
VSS, PT REPOSITIONS SELF IN BED. DENIES NEEDS. C/L IN REACH.
--- NOTE | 2019-07-14 01:17 | NUR ---
UP TO BR TO VOID. GAIT STEADY.
[2019-07-14 03:20] VITALS: BP 145/62
--- NOTE | 2019-07-14 03:45 | NUR ---
PT UP TO BR. VOIDED. COMPLETE BATH AND LINEN CHANGE DONE. NEW PJS AND UNDER WEAR ON PER PT REQUEST. PT C/O FEELING WEAK/DIZZY. BACK TO BED. WILL CONT CLOSE MONITORING.
--- NOTE | 2019-07-14 04:13 | NUR ---
PT WITH NAUSEA AND SMALL AMT CLEAR EMESIS. Ebenezer MOHR NOTIFIED NEW ORDER REC'D. SEE EMAR.
--- NOTE | 2019-07-14 04:32 | NUR ---
PT RESTING QUIETLY AT THIS TIME. C/L IN REACH.
[2019-07-14 05:52] LABS: BASOPHILS 0.2 % (0-2); EOSINOPHILS 0 % (0-7); HEMATOCRIT 29.1 % (36.0-48.0); HEMOGLOBIN 10.3 g/dL (12-16); IMMATURE GRANULOCYTES 0.2 % (0-5); LYMPHOCYTES 9.8 % (15-50); MCH 31.8 pg (26.0-34.0); MCHC 35.4 g/dL (31.0-37.0); MCV 89.8 fL (80.0-100.0); MEAN PLATELET VOLUME 9.1 fL (7.4-10.4); MONOCYTES 18.3 % (2-11); NEUTROPHILS 71.5 % (40-80); PLATELET COUNT 139 10x3/uL (130-400); RBC 3.24 10x6/uL (4.00-5.40); RDW 12.4 % (11.5-14.5); WBC 5.1 10x3/uL (4.8-10.8)
[2019-07-14 06:16] LABS: CALC OSMOLALITY 254 mosm/kg (275-300); CALCIUM 7.2 mg/dL (8.5-10.1); CARBON DIOXIDE 21.9 mmol/L (21.0-32.0); CHLORIDE - SERUM 95 mmol/L (98-107); CREATININE - SERUM 0.6 mg/dL (0.6-1.3); GLUCOSE 96 mg/dL (74-106); POTASSIUM - SERUM 3.2 mmol/L (3.5-5.1); SODIUM 128 mmol/L (136-145); UREA NITROGEN 7 mg/dL (7-18); eGFR NON AFRICAN AMERICAN > 90 mL/min (90-120)
--- NOTE | 2019-07-14 07:27 | NUR ---
PT RESTING, EYES CLOSED. BEDSIDE REPORT RECIEVED. PT DENIES NEEDS AT THIS TIME. RR EVEN AND UNLABORED. RED SPLOTCHES ON ABDOMEN NOTED. WILL CONTINUE TO MONITOR.
[2019-07-14 08:01] VITALS: BP 128/62
--- NOTE | 2019-07-14 12:31 | NUR ---
OT NOTE: UPON ENTERING ROOM, PT REPORTED THAT SHE WAS FEELING NAUSEATED. PROVIDED PT WITH COLD CLOTH AND SHE WASHED FACE AND HANDS. BEGAN TO SIT UP ON EDGE OF BED BUT FELT TOO NAUSEATED. NOTIFIED NURSING. WILL RE ATTEMPT LATER. JUNIOR FARIAS, OTR/L
--- NOTE | 2019-07-14 12:39 | NUR ---
I have reviewed this patient and I concur with the Shift Assessment completed by the Licensed Practical Nurse today this shift.
--- NOTE | 2019-07-14 14:43 | NUR ---
OT NOTE: PT COMPLETED FACE WASH WITH SET UP. PT COMPLETED HYGIENE TASK WITH SET UP SUPINE IN BED. PT IS NAUSEOUS AND DID NOT WANT TO SET UP. THANK YOU, TESS JIMENEZ
[2019-07-14 17:05] VITALS: Ht 165.1 cm; Wt 53.1 kg
[2019-07-14 18:28] VITALS: BP 112/50
--- NOTE | 2019-07-14 19:33 | NUR ---
PATIENT RESTING IN BED WITH NO S/S OF DISTRESS. VSS. BROUGHT PATIENT FRESH ICE WATER PER HER REUQEST. PATIENT DENIES OTHER NEEDS AT THIS TIME. BED IN LOWEST POSITION AND CALL LIGHT WITHIN REACH. ENCOURAGED THE PATIENT TO CALL IF SHE HAS OTHER NEEDS. WILL CONTINUE TO MONITOR.
[2019-07-14 19:53] VITALS: BP 135/66
[2019-07-15 00:07] VITALS: BP 125/72
[2019-07-15 04:00] VITALS: BP 134/62
[2019-07-15 07:01] LABS: CALC OSMOLALITY 260 mosm/kg (275-300); CALCIUM 7.8 mg/dL (8.5-10.1); CARBON DIOXIDE 21.2 mmol/L (21.0-32.0); CHLORIDE - SERUM 100 mmol/L (98-107); CREATININE - SERUM 0.7 mg/dL (0.6-1.3); GLUCOSE 116 mg/dL (74-106); POTASSIUM - SERUM 3.7 mmol/L (3.5-5.1); SODIUM 130 mmol/L (136-145); UREA NITROGEN 10 mg/dL (7-18); eGFR NON AFRICAN AMERICAN 85 mL/min (90-120)
[2019-07-15 07:22] LABS: BASOPHILS 0 % (0-2); EOSINOPHILS 0 % (0-7); HEMOGLOBIN 10.5 g/dL (12-16); IMMATURE GRANULOCYTES 0.7 % (0-5); LYMPHOCYTES 31.7 % (15-50); MCH 31.5 pg (26.0-34.0); MCV 90.1 fL (80.0-100.0); MEAN PLATELET VOLUME 9.6 fL (7.4-10.4); MONOCYTES 20.1 % (2-11); NEUTROPHILS 47.5 % (40-80); PLATELET COUNT 163 10x3/uL (130-400); RBC 3.33 10x6/uL (4.00-5.40); RDW 12.5 % (11.5-14.5)
--- NOTE | 2019-07-15 07:29 | NUR ---
ROUNDING DONE WITH PATIENT UP IN RESTROOM AT THIS TIME. LEFT IP WITH INTACT DRESSING SEEN WITH NS INFUSING AT 100 CC/HR. RESEM RIGHTARM WITH HX CA BREAST. ON ROOM AIR. RASH SEEN OVER FACE, ARMS, AND CHEST. DENIES ANY NEEDS AT THIS TIME.
[2019-07-15 08:17] LABS: WBC 1.4 10x3/uL (4.8-10.8)
[2019-07-15 08:25] VITALS: BP 124/53
[2019-07-15 11:36] VITALS: BP 117/56
[2019-07-15 14:18] VITALS: BP 142/60
--- NOTE | 2019-07-15 19:30 | NUR ---
PT CARE ASSUMED. RR EVEN AND UNLABORED. NO S/S OF DISTRESS NOTED. DENIES NEEDS AT THIS TIME. WILL CPOC.
[2019-07-15 20:00] VITALS: BP 138/58
[2019-07-16 00:23] VITALS: BP 130/64
[2019-07-16 04:49] VITALS: BP 148/67
--- NOTE | 2019-07-16 04:53 | NUR ---
PT UPSET BECAUSE CALL LIGHT WAS NOT WORKING. CALL LIGHT ISSUE FIXED. PROVIDED SNACK AND ICE WATER PER REQUEST. NO FURTHER VOICED C/O OR CONCERNS. WILL CTM.
--- NOTE | 2019-07-16 06:09 | NUR ---
I have reviewed this patient and I concur with the Shift Assessment completed by the Licensed Practical Nurse today this shift.
[2019-07-16 06:10] LABS: HEMATOCRIT 29.9 % (36.0-48.0); HEMOGLOBIN 10.7 g/dL (12-16); MCH 32.2 pg (26.0-34.0); MCHC 35.8 g/dL (31.0-37.0); MCV 90.1 fL (80.0-100.0); PLATELET COUNT 162 10x3/uL (130-400); RBC 3.32 10x6/uL (4.00-5.40); RDW 12.7 % (11.5-14.5); WBC 29.1 10x3/uL (4.8-10.8)
[2019-07-16 06:24] LABS: CALC OSMOLALITY 256 mosm/kg (275-300); CALCIUM 7.6 mg/dL (8.5-10.1); CARBON DIOXIDE 20.6 mmol/L (21.0-32.0); CHLORIDE - SERUM 98 mmol/L (98-107); CREATININE - SERUM 0.7 mg/dL (0.6-1.3); GLUCOSE 82 mg/dL (74-106); MAGNESIUM - SERUM 1.1 mg/dL (1.8-2.4); POTASSIUM - SERUM 3.5 mmol/L (3.5-5.1); SODIUM 129 mmol/L (136-145); UREA NITROGEN 11 mg/dL (7-18); eGFR NON AFRICAN AMERICAN 85 mL/min (90-120)
[2019-07-16 07:02] LABS: LYMPHOCYTES 3 % (15-50); MONOCYTES 4 % (2-11); NEUTROPHILS 83 % (40-80)
[2019-07-16 07:03] LABS: PLATELET ESTIMATE NORMAL
--- NOTE | 2019-07-16 07:20 | NUR ---
RESP THERAPIST ALERTED NURSE THAT PT WAS EXTREMLY NAUSEATED. PAGED JEFFREY AMBRIZ AND NO CALL BACK. PAGED SERG AMBRIZ AND NEW ORDER WAS RECIEVED FOR ZOFRAN PRN. UPON DISCUSSING NEW ORDER WITH PT, PT STATES SHE IS FEELING BETTER AND DOES NOT WANT THE ZOFRAN AT THIS TIME.
--- NOTE | 2019-07-16 08:20 | NUR ---
PT RESTING IN BED, PT COMPLAINS OF CHAPPED LIPS, MOUTH MOISTURIZER PROVIDED. AM MEDICATIONS GIVEN ORDERED, TOLERATED WELL. SHIFT ASSESSMENT PERFORMED. CALL LIGHT WITHIN REACH, BED IN LOWEST POSITION, DENIES ANY FURTHER NEEDS. WILL CONT TO FOLLOW POC
[2019-07-16 09:08] VITALS: BP 140/65
--- NOTE | 2019-07-16 11:33 | NUR ---
HERE AND ASKED NURSE TO PUT IN ORDER TO INCREASE PREDNISONE FROM 5MG QDAY TO 10MG QDAY.
--- NOTE | 2019-07-16 12:15 | NUR ---
PT RESTING IN BED, DENIES ANY NEEDS AT THIS TIME, WILL CONT TO FOLLOW POC
--- NOTE | 2019-07-16 17:12 | NUR ---
PT SITTING UP IN BED EATTING SUPPER, DENIES ANY NEEDS AT THIS TIME, WILL CONT TO FOLLOW POC
--- NOTE | 2019-07-16 19:45 | NUR ---
PT CARE ASSUMED. RR EVEN AND UNLABORED. NO S/S OF DISTRESS NOTED. PROVIDED ICE WATER PER REQUEST. NO FURTHER NEEDS EXPRESSED. WILL CPOC.
[2019-07-16 20:00] VITALS: BP 126/57
[2019-07-17 01:00] VITALS: BP 141/62
--- NOTE | 2019-07-17 02:05 | NUR ---
PT C/AUGUSTUS NECK PAIN AND REQUESTED TYLENOL. PAGED SERG QUARRY PLUG AND FEATHER DRILLER AND RECEIVED ORDERS FOR TYLENOL 500MG I TAB PO Q6H PRN. PROVIDED PT WITH MEDICATION AND A SNACK PER REQUEST. NO FURTHER VOICED C/O OR CONCERNS AT THIS TIME. WILL CTM.
[2019-07-17 06:21] LABS: WBC 26.7 10x3/uL (4.8-10.8)
[2019-07-17 06:22] LABS: BASOPHILS 0.1 % (0-2); EOSINOPHILS 0 % (0-7); HEMATOCRIT 29.3 % (36.0-48.0); HEMOGLOBIN 10.5 g/dL (12-16); IMMATURE GRANULOCYTES 1.5 % (0-5); LYMPHOCYTES 4.4 % (15-50); MCH 31.8 pg (26.0-34.0); MCHC 35.8 g/dL (31.0-37.0); MCV 88.8 fL (80.0-100.0); MEAN PLATELET VOLUME 9.6 fL (7.4-10.4); MONOCYTES 5.7 % (2-11); NEUTROPHILS 88.3 % (40-80); PLATELET COUNT 167 10x3/uL (130-400); RDW 12.7 % (11.5-14.5)
[2019-07-17 06:28] LABS: CALC OSMOLALITY 254 mosm/kg (275-300); CALCIUM 7.6 mg/dL (8.5-10.1); CARBON DIOXIDE 21.9 mmol/L (21.0-32.0); CHLORIDE - SERUM 97 mmol/L (98-107); CREATININE - SERUM 0.7 mg/dL (0.6-1.3); GLUCOSE 86 mg/dL (74-106); MAGNESIUM - SERUM 1.1 mg/dL (1.8-2.4); POTASSIUM - SERUM 3.1 mmol/L (3.5-5.1); SODIUM 128 mmol/L (136-145); UREA NITROGEN 10 mg/dL (7-18); eGFR NON AFRICAN AMERICAN 85 mL/min (90-120)
--- NOTE | 2019-07-17 07:20 | NUR ---
PT RESTING IN BED, SHIFT ASSESSMENT PERFORMED. VSS AND WNL. DENIES ANY FURTHER NEEDS AT THIS TIME, WILL CONT TO FOLLOW POC
[2019-07-17 08:06] VITALS: BP 136/61
[2019-07-17 12:15] VITALS: BP 132/68
--- NOTE | 2019-07-17 12:20 | NUR ---
PT RESTING IN BED EATING LUNCH, DENIES ANY NEEDS AT THIS TIME, WILL CONT TO FOLLOW POC
[2019-07-17 16:40] VITALS: BP 136/72
--- NOTE | 2019-07-17 19:05 | NUR ---
LYING IN BED. ALERT AND ORIENTED X4. RESP EVEN AND NONLABORED. REPORTS PROD COUGH WITH CLEAR SPUTUM BUT REFUSES TO GIVE SPUTUM SPECIMEN DUE TO DIFFICULTY IN GETTING IT IN THE CONTAINER. NO SOB. O2 @ 1L/NC BUT NOT WEARING. RED RASH NOTED TO FACE, CHEST AND ABD. HAS LUPUS. NS @ 100 ML/HR INFUSINGIN LT CHEST WALL MEDIPORT WITHOUT DIFF. GEN WEAKNESS NOTED. RT ARM RESERVE. AMBULATORY. SR ELEVATED X2. CL IN REACH.
--- NOTE | 2019-07-17 19:43 | NUR ---
C/O NAUSEA. NO VOMITING. MEDICATED WITH ZOFRAN ORDERED. CL IN REACH.
--- NOTE | 2019-07-17 19:45 | NUR ---
MEDICATED WITH ZOFRAN FOR C/O NAUSEA. CL IN REACH.
[2019-07-17 19:58] VITALS: BP 134/66
--- NOTE | 2019-07-17 22:41 | NUR ---
LYING IN BED WITH EYES CLOSED. RESP EVEN AND NONLABORED. NO DISTRESS. CL IN REACH.
[2019-07-17 23:40] VITALS: BP 130/61
[2019-07-18 03:50] VITALS: BP 141/57
--- NOTE | 2019-07-18 03:54 | NUR ---
HAS RESTED WELL SO FAR THIS SHIFT. C/O NAUSEA BUT REFUSES ZOFRAN AT THIS TIME. CL IN REACH.
[2019-07-18 05:07] LABS: BASOPHILS 0.1 % (0-2); EOSINOPHILS 0.1 % (0-7); HEMATOCRIT 28.6 % (36.0-48.0); HEMOGLOBIN 10.1 g/dL (12-16); IMMATURE GRANULOCYTES 0.4 % (0-5); LYMPHOCYTES 4.2 % (15-50); MCH 31.3 pg (26.0-34.0); MCHC 35.3 g/dL (31.0-37.0); MCV 88.5 fL (80.0-100.0); MEAN PLATELET VOLUME 10.1 fL (7.4-10.4); MONOCYTES 8.5 % (2-11); NEUTROPHILS 86.7 % (40-80); PLATELET COUNT 160 10x3/uL (130-400); RBC 3.23 10x6/uL (4.00-5.40); RDW 12.4 % (11.5-14.5)
[2019-07-18 05:15] LABS: WBC 16.8 10x3/uL (4.8-10.8)
[2019-07-18 05:27] LABS: CALC OSMOLALITY 251 mosm/kg (275-300); CALCIUM 7.5 mg/dL (8.5-10.1); CARBON DIOXIDE 23.4 mmol/L (21.0-32.0); CHLORIDE - SERUM 96 mmol/L (98-107); CREATININE - SERUM 0.6 mg/dL (0.6-1.3); GLUCOSE 84 mg/dL (74-106); POTASSIUM - SERUM 3.2 mmol/L (3.5-5.1); SODIUM 127 mmol/L (136-145); eGFR NON AFRICAN AMERICAN > 90 mL/min (90-120)
[2019-07-18 05:32] LABS: UREA NITROGEN 7 mg/dL (7-18)
[2019-07-18 07:39] VITALS: BP 114/58
--- NOTE | 2019-07-18 08:06 | NUR ---
AM MEDS GIVEN AT THIS TIME. PT STATING THAT SHE DOES NOT WANT ANOTHER DOSE OF THE DOXY, BECAUSE ITS MAKING HER SICK TO HER STOMACH. PT A/O X4, RESP EVEN AND NONLABORED ON RA. LT CHEST INFUSING PORT INFUSING NS AT 100CC/HR. PT DENIES ANY NEEDS AT THIS TIME. CALL LIGHT IN REACH, NAD NOTED, WILL CONTINUE TO MONITOR.
--- NOTE | 2019-07-18 11:14 | NUR ---
OT NOTE: PT STATED THAT SHE IS STILL NOT FEELING WELL. PERFORMED BED MOB WITH SPV; ABLE TO BRIAN SOCKS AND SLIPPERS WITH SET UP; TOILETING WITH CGA; ABLE TO BRIAN ROBE IN STANDING WITH CGA.. GOOD BALANCE. AMB GREATER THAN 100 FT WITH RW AND NO LOB. SIMPLE GROOMING TASKS AT SINK WITH CGA. JUNIOR FARIAS, OTR/L
--- NOTE | 2019-07-18 12:12 | NUR ---
PT RESTING COMFORTABLY IN BED, DENIES ANY NEEDS AT THIS TIME. CALL LIGHT IN REACH, NAD NOTED, WILL CONTINUE TO MONITOR.
[2019-07-18 13:33] LABS: APPEARANCE CLEAR (CLEAR); BILIRUBIN NEGATIVE (NEGATIVE); COLOR YELLOW (YELLOW); GLUCOSE NEGATIVE (NEGATIVE); KETONE NEGATIVE (NEGATIVE); NITRITE NEGATIVE (NEGATIVE); PROTEIN NEGATIVE (NEGATIVE); SPECIFIC GRAVITY 1.005 (1.005-1.020); UROBILINOGEN NORMAL (NORMAL)
--- NOTE | 2019-07-18 13:56 | NUR ---
Nutrition Follow-up: Diet: Regular PO intake: 44% x 9 meals Labs noted Significant meds: lytes replacement, prednisone, synthroid, PRN zofran, rocephin, vibramycin Wt: 117# (07/13/19) +BM Doesn't like Boost or anything with milk in it. Willing to try Ensure Clear. RD Following
[2019-07-18 14:09] VITALS: BP 128/59
--- NOTE | 2019-07-18 14:18 | NUR ---
COMPLETE LINEN CHANGE DONE, PT ALSO HAD A SPONGE BATH. PT DENIES ANY OTHER NEEDS AT THIS TIME. CALL LIGHT IN REACH, NAD NOTED, WILL CONTINUE TO MONITOR.
[2019-07-18 16:20] VITALS: BP 138/58
[2019-07-18 19:00] VITALS: BP 130/55
[2019-07-18 23:00] VITALS: BP 125/67
[2019-07-19 03:00] VITALS: BP 126/62
[2019-07-19 05:24] LABS: BASOPHILS 0.1 % (0-2); EOSINOPHILS 0.1 % (0-7); HEMATOCRIT 28.7 % (36.0-48.0); HEMOGLOBIN 10.3 g/dL (12-16); IMMATURE GRANULOCYTES 0.4 % (0-5); LYMPHOCYTES 9.4 % (15-50); MCH 31.8 pg (26.0-34.0); MCHC 35.9 g/dL (31.0-37.0); MCV 88.6 fL (80.0-100.0); MEAN PLATELET VOLUME 9.5 fL (7.4-10.4); MONOCYTES 17.5 % (2-11); NEUTROPHILS 72.5 % (40-80); PLATELET COUNT 159 10x3/uL (130-400); RBC 3.24 10x6/uL (4.00-5.40); RDW 12.6 % (11.5-14.5)
[2019-07-19 05:30] LABS: WBC 7.6 10x3/uL (4.8-10.8)
[2019-07-19 05:33] LABS: CALC OSMOLALITY 252 mosm/kg (275-300); CALCIUM 7.5 mg/dL (8.5-10.1); CARBON DIOXIDE 24.1 mmol/L (21.0-32.0); CHLORIDE - SERUM 94 mmol/L (98-107); CREATININE - SERUM 0.7 mg/dL (0.6-1.3); POTASSIUM - SERUM 3.3 mmol/L (3.5-5.1); SODIUM 126 mmol/L (136-145); UREA NITROGEN 8 mg/dL (7-18); eGFR NON AFRICAN AMERICAN 85 mL/min (90-120)
[2019-07-19 05:36] LABS: GLUCOSE 136 mg/dL (74-106); MAGNESIUM - SERUM 1.5 mg/dL (1.8-2.4)
--- NOTE | 2019-07-19 07:52 | NUR ---
PT ALERT AND ORIENTED. REQUESTED A WASHRAG TO WASH FACE. RR EVEN AND UNLABORED. WILL CONTINUE TO MONITOR.
[2019-07-19 09:39] VITALS: BP 147/64
[2019-07-19 11:05] VITALS: BP 128/51
--- NOTE | 2019-07-19 16:43 | NUR ---
OT NOTE: PT COMPLETED BED MOB WITH SPV. PT COMPLETED SIT TO STAND WITH SBA/CGA. PT COMPLETED ADL MOB WITH CGA FOR 75 FEET. PT COMPLETED FACE WASH WITH SET UP. THANK YOU, TESS JIMENEZ
--- NOTE | 2019-07-19 17:48 | NUR ---
I CONCUR WITH THE ASSESSMENT COMPLETED BY THE WIND TECHNICIAN
[2019-07-19 18:40] VITALS: BP 110/53
[2019-07-19 19:00] VITALS: BP 105/55
--- NOTE | 2019-07-19 19:02 | NUR ---
PT IN BED. DENIES NEEDS AT THIS TIME.
[2019-07-19 23:00] VITALS: BP 112/57
[2019-07-20 03:00] VITALS: BP 107/56
[2019-07-20 06:31] LABS: HEMATOCRIT 28.3 % (36.0-48.0); HEMOGLOBIN 10.1 g/dL (12-16); MCH 31.7 pg (26.0-34.0); MCHC 35.7 g/dL (31.0-37.0); MCV 88.7 fL (80.0-100.0); MEAN PLATELET VOLUME 9.6 fL (7.4-10.4); PLATELET COUNT 166 10x3/uL (130-400); RBC 3.19 10x6/uL (4.00-5.40); RDW 12.5 % (11.5-14.5)
[2019-07-20 06:43] LABS: WBC 1.9 10x3/uL (4.8-10.8)
[2019-07-20 06:46] LABS: ANION GAP 10.9 mmol/L (8-16); CALCIUM 7.7 mg/dL (8.5-10.1); CARBON DIOXIDE 23.9 mmol/L (21.0-32.0); CREATININE - SERUM 0.8 mg/dL (0.6-1.3)
[2019-07-20 06:47] LABS: MAGNESIUM - SERUM 2.1 mg/dL (1.8-2.4); POTASSIUM - SERUM 3.8 mmol/L (3.5-5.1)
--- NOTE | 2019-07-20 07:36 | NUR ---
PT SITTING UP IN BED. ALERT AND ORIENTED. RR EVEN AND UNLABORED. DENIES NEEDS AT THIS TIME. WILL CONTINUE TO MONITOR.
[2019-07-20 08:05] VITALS: BP 119/56
[2019-07-20 10:20] LABS: EOSINOPHILS 2 % (0-7); LYMPHOCYTES 28 % (15-50); MONOCYTES 6 % (2-11); NEUTROPHILS 62 % (40-80); PLATELET ESTIMATE NORMAL
--- NOTE | 2019-07-20 13:25 | NUR ---
OT NOTE: PT DOING VERY WELL TODAY. STATED THAT SHE WAS FEELING MUCH BETTER. BED MOB INDEP; ABLE TO AMB APPROX 175 FT WITH WALKER; PT AMB IN ROOM WITH USE OF IV POLE. PT PRESENTED WITH GOOD BALANCE AND SAFETY. INSTRUCTED PT AND NURSING THAT PT WAS SAFE TO AMB IN ROOM LONG SHE WAS FEELING GOOD WITH NO SIGNS OF DIZZINESS. PT PERFORMED SINK HYGIENE TASKS IN STANDING WITH MOD I; TOILETING WITH MOD I; ABLE TO BRIAN SOCKS AND SHOES WITH SET UP; NO PAIN, NAUSEA, SOB , OR DIZZINESS NOTED; GOOD STATIC ADN DYNAMIC STANDING BALANCE. JUNIOR FARIAS, OTR/L
[2019-07-20 14:47] VITALS: BP 129/61
[2019-07-20 15:16] LABS: COMPLEMENT C4 4.8 mg/dL (17.4-52.2)
[2019-07-20 16:08] LABS: ERYTHROCYTE SEDIMENTATION RATE 10 mm/hr (0-30)
[2019-07-20 19:00] VITALS: BP 120/65
--- NOTE | 2019-07-20 19:45 | NUR ---
PT IN BED. ASISSTED PT TO SINK TO WASH HANDS AND CLEAN TEETH. THEN BACK TO BED PT DENIES FURTHER NEEDS AT THIS TIME.
[2019-07-20 23:00] VITALS: BP 128/62
[2019-07-21 03:00] VITALS: BP 124/60
[2019-07-21 05:54] LABS: CALCIUM 8.2 mg/dL (8.5-10.1); CARBON DIOXIDE 23.8 mmol/L (21.0-32.0); CREATININE - SERUM 0.9 mg/dL (0.6-1.3); POTASSIUM - SERUM 3.8 mmol/L (3.5-5.1)
[2019-07-21 06:23] LABS: HEMATOCRIT 29.6 % (36.0-48.0); HEMOGLOBIN 10.5 g/dL (12-16); MCH 31.8 pg (26.0-34.0); MCHC 35.5 g/dL (31.0-37.0); MCV 89.7 fL (80.0-100.0); MEAN PLATELET VOLUME 10.2 fL (7.4-10.4); PLATELET COUNT 224 10x3/uL (130-400); RDW 12.7 % (11.5-14.5); WBC 44.6 10x3/uL (4.8-10.8)
[2019-07-21 07:31] VITALS: BP 136/55
[2019-07-21 09:47] LABS: ANISOCYTOSIS OCC; LYMPHOCYTES 3 % (15-50); MONOCYTES 6 % (2-11); NEUTROPHILS 57 % (40-80); PLATELET ESTIMATE NORMAL; TOXIC GRANULATION 1+
[2019-07-21 09:48] LABS: ROULEAUX OCC
--- NOTE | 2019-07-21 11:00 | NUR ---
BATH RECIEVED. LINENS CHANGED. ORAL CARE COMPLETE.
--- NOTE | 2019-07-21 15:02 | NUR ---
OT NOTE: PT DOING WELL. REPORTS THAT SHE HAS BEEN ABLE TO GET UP WITHOUT DIFFICULTY; INDEP WITH BED MOB; GOOD STANDING BALANCE; GROOMING WITH SPV/MOD I. WANTS TO GO HOME. JUNIOR FARIAS, OTR/L
[2019-07-21 15:10] LABS: CHROMOGRANIN A 11 nmol/L (0-5)
--- NOTE | 2019-07-21 15:12 | NUR ---
OT NOTE: PT DOING WELL. PT SITTING UP IN CHAIR. PT COMPLETED ADL MOB WITH SBA/CGA. PT COMPLETED SITTING BALANCE WITH SPV. PT COMPLETED GROOMING TASKS WHILE SITTING UP WITH SET UP. THANK YOU,TESS JIMENEZ
[2019-07-21 18:21] VITALS: BP 128/46
[2019-07-21 19:25] VITALS: BP 127/61
--- NOTE | 2019-07-21 19:30 | NUR ---
PT LYING IN BED WATCHING TV. CL IN REACH. BED IN LOW SIDE RAILS X2. A/O X4. BOWEL ACTIVE X4. PT DENIES NEEDS OR PAIN AT THIS TIME. ICE WATER GIVEN TO PT PER REQUEST. VITALS WNL. RESP EVEN AND UNLABORED. WILL CONTINUE TO MONITOR.
[2019-07-22 00:13] VITALS: BP 131/65
[2019-07-22 04:13] VITALS: BP 139/64
--- NOTE | 2019-07-22 05:58 | NUR ---
I have reviewed this patient and I concur with the Shift Assessment completed by the Licensed Practical Nurse today this shift.
[2019-07-22 07:02] LABS: BASOPHILS 0.1 % (0-2); EOSINOPHILS 0 % (0-7); HEMATOCRIT 29.2 % (36.0-48.0); HEMOGLOBIN 10.4 g/dL (12-16); IMMATURE GRANULOCYTES 7.1 % (0-5); LYMPHOCYTES 1.8 % (15-50); MCHC 35.6 g/dL (31.0-37.0); MCV 89.8 fL (80.0-100.0); MEAN PLATELET VOLUME 9.7 fL (7.4-10.4); MONOCYTES 5.3 % (2-11); NEUTROPHILS 85.7 % (40-80); PLATELET COUNT 199 10x3/uL (130-400); RBC 3.25 10x6/uL (4.00-5.40); RDW 12.9 % (11.5-14.5); WBC 38.3 10x3/uL (4.8-10.8)
[2019-07-22 07:14] LABS: SEROTONIN 57 ng/mL (0-420)
[2019-07-22 08:00] VITALS: BP 137/69
[2019-07-22 08:04] LABS: ANION GAP 13.8 mmol/L (8-16); CALCIUM 8.3 mg/dL (8.5-10.1); CARBON DIOXIDE 24.5 mmol/L (21.0-32.0); CREATININE - SERUM 0.9 mg/dL (0.6-1.3); POTASSIUM - SERUM 3.3 mmol/L (3.5-5.1)
--- NOTE | 2019-07-22 09:17 | NUR ---
PATIENT IS ALERT/ORIENT. SITTING UP IN BED TO EAT BREAKFAST. CALL LIGHT WITHIN REACH. VOICES NO NEEDS AT THIS TIME. WILL CONTINUE WITH PLAN OF CARE
--- NOTE | 2019-07-22 10:22 | NUR ---
NUTRITION FOLLOW UP: INTERVIEW: Patient stated her appetite has improved and is almost back to normal. Patient denied N/V/D/C or chewing/swallowing issues. Patient stated that she wanted to discontinue the Ensure Clear with trays. DIET: Regular Diet PO INTAKE: 50% x 1 on 07/22 (improved) WT: 116 lbs (no new wt since 07/13) BM: x 4 on 07/19 MEDS: Reglan, Megace, KCl, Mag Ox, Zofran, Protonix, Pepcid, Albuterol LABS: Na-131(L), Calcium-8.2(L), Iron-16(L), CRP-2.0(H), Vit B12- >2000(H) IVF: NaCl @ 75 ml/hr GOALS: PO intake >/= 75%, BM q 3 days, stable weight, maintain skin integrity, labs WNL Will continue to monitor closely Clinical Dietitian Following
--- NOTE | 2019-07-22 10:53 | NUR ---
DR DOWD INTO SEE PATIENT. NO NEW ORDERS RECEIVED
[2019-07-22] MEDS ORDERED: SINGULAIR10 MG PO (11:46)
[2019-07-22] MEDS ORDERED: PREDNISONE10 MG PO (11:47)
[2019-07-22] MEDS ORDERED: PROTONIX40 MG PO (12:14)
--- NOTE | 2019-07-22 13:15 | NUR ---
PT IMPLANTED PORT FLUSHED WITH 10ML NS AND 8ML HEPRIN FLUSH. PARHAM NEEDLE REMOVED WITH TIP INTACT. GAUZE WITH PAPER TAPE PLACED OVER PORT. PT TOLERATED WELL
--- NOTE | 2019-07-22 13:29 | NUR ---
DISCHARGE INSTRUCTIONS GONE OVER WITH PATIENT AND PATIENTS' SON. PATIENT HELPED OUT TO CAR BY STAFF
--- NOTE | 2019-07-22 21:57 | MORECARE ---
CASE MANAGEMENT DISCHARGE SUMMARY PATIENT: RICHY CLEMONS UNIT: [id number] ADM DATE: 07/13/19 AGE: 79 : 39 SEX: F ROOM/BED: D.1206 AUTHOR: SHANIQUA CASTILLO PHYSICIAN: REFERRING PHYSICIAN: RACHANA LONG MD DATE OF SERVICE: 07/22/19 Discharge Plan Patient Name: RICHY CLEMONS Facility: [facility]:[place] : 1940 Planned Disposition: Home Anticipated Discharge Date: 07/14/19 Discharge Date: 07/22/2019 Expected LOS: 1 Initial Reviewer: [email or web address] Initial Review Date: 07/12/2019 Generated: 07/22/19 10:57 pm Comments DCP- Discharge Planning Updated by [email or web address]: Lakeisha Ugarte on 07/22/19 8:[address] Patient Name: RICHY CLEMONS Encounter No: [id number] : 1940 Primary Insurance: MEDICARE A & B Anticipated DC Date: 07-14-2019 Planned Disposition: Home External Planned Provider: : DCP follow-up note: Patient and family in agreement with discharge plan. No changes to plan. Case management will follow and assist as needed. Lakeisha Ugarte DCP- Discharge Planning Updated by [email or web address]: Clementine Headley on 07/12/19 2:[address] Patient Name: RICHY CLEMONS Admission Status: Elective Accout number: [id number] Admission Date: 07-12-2019 : 1940 Admission Diagnosis: Attending: RACHANA LONG Current LOS: 1 Anticipated DC Date: 07-14-2019 Planned Disposition: Home Primary Insurance: MEDICARE A & B Discharge Planning Comments: DC PLAN: Return home alone. Son lives close by. DC NEEDS: Denied dc needs at this time. CM met with patient to complete initial dc planning assessment. CM educated patient on the CM role and verbal consent given by patient to complete assessment. CM verified patient's address, phone number, and emergency contact phone numbers. Patient lives home alone and reports she is independent in her care at home. At discharge patient plans to return home alone and feels this is a safe discharge. CM discussed availability of home health, rehab services, and medical equipment. Patient denied known discharge needs at this time. Patient reports her son will transport her home at time of discharge. CM will continue to follow and will assist as needed with dc plans/needs. Contact Center Rep: Clementine Headley RN, [facility] DCPIA - Discharge Planning Initial Assessment Updated by [email or web address]: Clementine Headley on 07/12/19 3:50 pm * Is the patient Alert and Oriented? Yes * How many steps to enter\exit or inside your home? none * PCP Dr. Long * Pharmacy [facility] * Preadmission Environment Home Alone * ADLs Independent * Equipment Walker * List name and contact numbers for known caregivers / representatives who currently or will assist patient after discharge: Joel clemons - son - [phone] * Verbal permission to speak to the caregivers and representatives has been obtained from the patient. Yes * Community resources currently utilized None * Additional services required to return to the preadmission environment? No * Can the patient safely return to the preadmission environment? Yes * Has this patient been hospitalized within the prior 30 days at any hospital? No Coverage Notice Reviewer: [email or web address] Antoine Ugarte Notice Issued Date-Time: 07/22/2019 13:05 Notice Type: IM Discharge Notice Notice Delivered To: Patient Relationship to Patient: Self Studio Musician Name: Delivery Method: HAND - Hand Delivered Polly Days: Prior Verbal Notification: Recipient Understood Notice: Yes Recipient Signature: Yes Med Rec Note Co-signed by Attending: Coverage Notice Comment: Last DP export: 07/13/19 4:54 p Patient Name: RICHY CLEMONS Page 98770 at 2157 All edits/amendments must be made on the electronic document DICTATION DATE: 07/22/192156 SUPERVISOR TAN ROOM: GLEN 07/22/192156 RPT#: [id number] DC DATE:07/22/19 STATUS: DIS IN [facility] [address] [place] [address] END OF REPORT
--- NOTE | 2019-07-22 22:11 | MORECARE ---
CASE MANAGEMENT DISCHARGE SUMMARY PATIENT: RICHY CLEMONS UNIT: [id number] ADM DATE: 07/13/19 AGE: 79 : 39 SEX: F ROOM/BED: D.1206 AUTHOR: SHANIQUA CASTILLO PHYSICIAN: REFERRING PHYSICIAN: RACHANA LONG MD DATE OF SERVICE: 07/22/19 Discharge Plan Patient Name: RICHY CLEMONS Facility: [facility]:[place] : 1940 Planned Disposition: Home Anticipated Discharge Date: 07/14/19 Discharge Date: 07/22/2019 Expected LOS: 1 Initial Reviewer: [email or web address] Initial Review Date: 07/12/2019 Generated: 07/22/19 11:11 pm Comments DCP- Discharge Planning Updated by [email or web address]: Lakeisha Ugarte on 07/22/19 8:[address] Patient Name: RICHY CLEMONS Encounter No: [id number] : 1940 Primary Insurance: MEDICARE A & B Anticipated DC Date: 07-14-2019 Planned Disposition: Home External Planned Provider: : DCP follow-up note: Patient and family in agreement with discharge plan. No changes to plan. Case management will follow and assist as needed. Lakeisha Ugarte DCP- Discharge Planning Updated by [email or web address]: Clementine Headley on 07/12/19 2:[address] Patient Name: RICHY CLEMONS Admission Status: Elective Accout number: [id number] Admission Date: 07-12-2019 : 1940 Admission Diagnosis: Attending: RACHANA LONG Current LOS: 1 Anticipated DC Date: 07-14-2019 Planned Disposition: Home Primary Insurance: MEDICARE A & B Discharge Planning Comments: DC PLAN: Return home alone. Son lives close by. DC NEEDS: Denied dc needs at this time. CM met with patient to complete initial dc planning assessment. CM educated patient on the CM role and verbal consent given by patient to complete assessment. CM verified patient's address, phone number, and emergency contact phone numbers. Patient lives home alone and reports she is independent in her care at home. At discharge patient plans to return home alone and feels this is a safe discharge. CM discussed availability of home health, rehab services, and medical equipment. Patient denied known discharge needs at this time. Patient reports her son will transport her home at time of discharge. CM will continue to follow and will assist as needed with dc plans/needs. Chocolate Refining Roller: Clementine Headley RN, [facility] DCPIA - Discharge Planning Initial Assessment Updated by [email or web address]: Clementine Headley on 07/12/19 3:50 pm * Is the patient Alert and Oriented? Yes * How many steps to enter\exit or inside your home? none * PCP Dr. Long * Pharmacy [facility] * Preadmission Environment Home Alone * ADLs Independent * Equipment Walker * List name and contact numbers for known caregivers / representatives who currently or will assist patient after discharge: Joel clemons - son - [phone] * Verbal permission to speak to the caregivers and representatives has been obtained from the patient. Yes * Community resources currently utilized None * Additional services required to return to the preadmission environment? No * Can the patient safely return to the preadmission environment? Yes * Has this patient been hospitalized within the prior 30 days at any hospital? No Coverage Notice Reviewer: [id number] Antoine Ugarte Notice Issued Date-Time: 07/22/2019 13:05 Notice Type: IM Discharge Notice Notice Delivered To: Patient Relationship to Patient: Self Entry Level Electrical Engineer Name: Delivery Method: HAND - Hand Delivered Polly Days: Prior Verbal Notification: Recipient Understood Notice: Yes Recipient Signature: Yes Med Rec Note Co-signed by Attending: Coverage Notice Comment: Last DP export: 07/22/19 8:58 p Patient Name: RICHY CLEMONS Page 70773 at 2211 All edits/amendments must be made on the electronic document DICTATION DATE: 07/22/192210 OIL AND GAS WELL TREATMENT OPERATOR: GLEN 07/22/192210 RPT#: [id number] DC DATE:07/22/19 STATUS: DIS IN [facility] [address] [place] [address] END OF REPORT
== END 2019-07-22 14:10 | disposition home or self-care (01) | DRG 193 ==
LOC: D.SDCHOLD 10:33 → D.M3 10:33 → D.SDCHOLD 10:33 → D.M3 12:06 → OBSVTIME 07-13 08:00 → D.M3 07-13 12:06
PROVIDERS: Family Medicine; Internal Medicine Hematology & Oncology; Internal Medicine Nephrology; ADMIT Family Medicine; ATTEND Family Medicine
DX: J18.9 Pneumonia, unspecified organism (principal); A41.9 Sepsis, unspecified organism; E85.9 Amyloidosis, unspecified; J20.9 Acute bronchitis, unspecified; K21.9 Gastro-esophageal reflux disease without esophagitis; M35.00 Sjogren syndrome, unspecified; D50.9 Iron deficiency anemia, unspecified; I77.6 Arteritis, unspecified; I10 Essential (primary) hypertension; I48.91 Unspecified atrial fibrillation; M32.9 Systemic lupus erythematosus, unspecified

== ENCOUNTER 2019-08-12 21:59 | Emergency (ER) | payer MEDICARE, BC ==
[~2019-08-12] VITALS: Ht 165.1 cm; Wt 53.6 kg
[~2019-08-12 21:59] MED LIST changes: +PREDNISONE5 MG PO; +PROTONIX40 MG PO; +SINGULAIR10 MG PO
[2019-08-12 22:04] VITALS: Ht 165.1 cm; Wt 53.6 kg
[2019-08-13 00:32] VITALS: BP 131/72
== END 2019-08-13 00:32 | disposition home or self-care (01) ==
LOC: D.ER 21:59
DX: S32.031A Stable burst fracture of third lumbar vertebra, initial encounter for closed fracture (principal); W19.XXXA Unspecified fall, initial encounter; S09.90XA Unspecified injury of head, initial encounter

== ENCOUNTER 2019-08-19 11:08 | Inpatient (IN) | payer MEDICARE, BC ==
[~2019-08-19] VITALS: Ht 165.1 cm; Wt 51.7 kg
[2019-08-19] MEDS ORDERED: PROTONIX40 MG PO (11:50)
[2019-08-19] MEDS ORDERED: PREDNISONE20 MG PO (11:50)
[2019-08-19] MEDS ORDERED: K-DUR20 MEQ PO (11:52)
[2019-08-19 12:42] LABS: ALBUMIN 2.7 g/dL (3.4-5.0); ANION GAP 16.6 mmol/L (8-16); BILIRUBIN - TOTAL 0.51 mg/dL (0.2-1.3); CALCIUM 8.6 mg/dL (8.5-10.1); CARBON DIOXIDE 19.8 mmol/L (21.0-32.0); CREATININE - SERUM 1.3 mg/dL (0.6-1.3); POTASSIUM - SERUM 5.4 mmol/L (3.5-5.1); PROTEIN - SERUM 6.1 g/dL (6.4-8.2)
[2019-08-19 12:46] LABS: TROPONIN-I 0.059 ng/mL (0.000-0.060)
[2019-08-19 12:49] LABS: HEMATOCRIT 32.3 % (36.0-48.0); HEMOGLOBIN 11.2 g/dL (12-16); MCH 31.4 pg (26.0-34.0); MCHC 34.7 g/dL (31.0-37.0); MCV 90.5 fL (80.0-100.0); MEAN PLATELET VOLUME 9.3 fL (7.4-10.4); PLATELET COUNT 192 10x3/uL (130-400); RBC 3.57 10x6/uL (4.00-5.40); RDW 13.1 % (11.5-14.5); WBC 24.7 10x3/uL (4.8-10.8)
[2019-08-19 12:57] LABS: LYMPHOCYTES 1 % (15-50); MONOCYTES 3 % (2-11); NEUTROPHILS 90 % (40-80); PLATELET ESTIMATE NORMAL
--- NOTE | 2019-08-19 14:30 | NUR ---
HAVE ATTEMPTED TO COLLECT URINE SAMPLE TWICE, NO SUCCESS. SPOKE WITH EDP. PT STATES SHE IS "DRY" HAVING BEEN UNABLE TO KEEP FLUIDS DOWN WITHOUT VOMITING. RECEIVED ORDER FOR IV FLUIDS. WILL ATTEMPT TO COLLECT URINE AGAIN ONCE FLUIDS HAVE BEEN INITIATED.
--- NOTE | 2019-08-19 14:55 | NUR ---
PT LYING IN BED, RESPIRATIONS EVEN AND UNLABORED. NO SIGNS OF DISTRESS. BLANKETS PROVIDED FOR COMFORT. FAMILY AT BEDSIDE. CALL LIGHT IN REACH. IV INFUSING ORDERDE, WILL CONTINUE TO MONITOR.
[2019-08-19 15:00] VITALS: BP 150/64
--- NOTE | 2019-08-19 16:23 | NUR ---
URINE SENT TO LAB, PT LEAVING ED VIA STRETCHER FOR ORDERED CT SCAN. NO SIGNS OF DISTRESS WHEN LEAVING.
[2019-08-19 16:36] LABS: APPEARANCE CLEAR (CLEAR); BILIRUBIN NEGATIVE (NEGATIVE); COLOR YELLOW (YELLOW); GLUCOSE NEGATIVE (NEGATIVE); KETONE NEGATIVE (NEGATIVE); NITRITE NEGATIVE (NEGATIVE); PROTEIN NEGATIVE (NEGATIVE); UROBILINOGEN NORMAL (NORMAL)
--- NOTE | 2019-08-19 16:37 | NUR ---
PT RETURNED TO ED AT THIS TIME.
[2019-08-19 17:00] VITALS: BP 162/73
--- NOTE | 2019-08-19 18:18 | NUR ---
RECEIVED PT FROM ER NURSE. SITUATED COMFORTABLY IN BED. FAMILY AT BEDSIDE. DENIES ANY NEEDS AT THIS TIME. WILL CTM.
--- NOTE | 2019-08-19 19:15 | NUR ---
REPORT RECEIVED, WILL CONTINUE POC. PATIENT IS A/OX4, UP WITH STANDBY ASSIST. PATIENT IS RESTING WITH EYES CLOSED. NS INFUSING BY GRAVITY COMPLETE, IV PATENT, DRSG C/D/I. NO S/S OF DISTRESS OBSERVED, RR EVEN AND UNLABORED ON ROOM AIR. CL IN REACH, BED LOCKED AND LOWERED. WILL CTM.
--- NOTE | 2019-08-19 19:44 | MORECARE ---
CASE MANAGEMENT DISCHARGE SUMMARY PATIENT: RICHY CHRISTENSNE UNIT: [id number] ADM DATE: 08/19/19 AGE: 79 : 39 SEX: F ROOM/BED: D.1205 AUTHOR: SHANIQUA CASTILLO PHYSICIAN: REFERRING PHYSICIAN: ECTOR STEVEN MD DATE OF SERVICE: 08/19/19 Discharge Plan Patient Name: RICHY CHRISTENSEN Facility: [facility]:[place] : 1940 Planned Disposition: Senior Care Facility Anticipated Discharge Date: 08/22/19 Discharge Date: Expected LOS: 3 Initial Reviewer: [email or web address] Initial Review Date: 08/19/2019 Generated: 08/19/19 8:43 pm DCPIA - Discharge Planning Initial Assessment Updated by [email or web address]: Clementine Headley on 08/19/19 7:41 pm * Is the patient Alert and Oriented? Yes * How many steps to enter\exit or inside your home? none * PCP Dr. Caruso * Pharmacy [facility] * Preadmission Environment Senior Care Facility * Facility Name [facility]. * ADLs Partial Dependent * Partial ADLs (Assistance needed) Bathing Dressing Medication Management * Equipment Rolling Walker * List name and contact numbers for known caregivers / representatives who currently or will assist patient after discharge: Joel Christensen - [facility] - [phone] * Verbal permission to speak to the caregivers and representatives has been obtained from the patient. Yes * Community resources currently utilized None * Additional services required to return to the preadmission environment? No * Can the patient safely return to the preadmission environment? Yes * Has this patient been hospitalized within the prior 30 days at any hospital? Yes Patient Name: RICHY CHRISTENSEN Page [id number] at 1944 All edits/amendments must be made on the electronic document DICTATION DATE: 08/19/191942 ASSEMBLER CONVERTIBLE TOP: GLEN 08/19/191942 RPT#: [id number] DC DATE: STATUS: ADM IN [facility] [address] [place] [address] END OF REPORT
--- NOTE | 2019-08-19 19:50 | MORECARE ---
CASE MANAGEMENT DISCHARGE SUMMARY PATIENT: RICHY CHRISTENSEN UNIT: [id number] ADM DATE: 08/19/19 AGE: 79 : 39 SEX: F ROOM/BED: D.1205 AUTHOR: ANNA,DOC PHYSICIAN: REFERRING PHYSICIAN: ECTOR STEVEN MD DATE OF SERVICE: 08/19/19 Discharge Plan Patient Name: RICHY CHRISTENSEN Facility: [facility]:[place] : 1940 Planned Disposition: Penitentiary Facility Anticipated Discharge Date: 08/22/19 Discharge Date: Expected LOS: 3 Initial Reviewer: [email or web address] Initial Review Date: 08/19/2019 Generated: 08/19/19 8:50 pm DCP- Discharge Planning Updated by [email or web address]: Clementine Headley on 08/19/19 6:[address] DC PLAN:Return to Rehab at [facility] ANTICIPATED DC NEEDS: Discharge before 10am so NH will accept back. CM met with patient and her son to complete initial dc planning assessment. CM educated patient on the CM role and verbal consent given by patient to complete assessment. Patient is currently in rehab @ [facility]. At discharge patient plans to return to [facility] and feels this is a safe discharge. KARLA presented, explained, and signed by patient. Signed form place in chart and signed form left with patient. Patient denied further known discharge needs at this time. . Patient reports NH/or her son will transport her home at time of discharge. CM will continue to follow and will assist as needed with dc plans/needs. Clementine Headley RN, [facility] DCPIA - Discharge Planning Initial Assessment Updated by [email or web address]: Clementine Headley on 08/19/19 7:41 pm * Is the patient Alert and Oriented? Yes * How many steps to enter\exit or inside your home? none * PCP Dr. Caruso * Pharmacy [facility] * Preadmission Environment Penitentiary Facility * Facility Name [facility]. * ADLs Partial Dependent * Partial ADLs (Assistance needed) Bathing Dressing Medication Management * Equipment Rolling Walker * List name and contact numbers for known caregivers / representatives who currently or will assist patient after discharge: Joel Christensen - son - [phone] * Verbal permission to speak to the caregivers and representatives has been obtained from the patient. Yes * Community resources currently utilized None * Additional services required to return to the preadmission environment? No * Can the patient safely return to the preadmission environment? Yes * Has this patient been hospitalized within the prior 30 days at any hospital? Yes Last DP export: 08/19/19 6:44 p Patient Name: RICHY CHRISTENSEN Page 25954 at 1950 All edits/amendments must be made on the electronic document DICTATION DATE: 08/19/191949 RETAIL SALES SPECIALIST: GLEN 08/19/191949 RPT#: [id number] DC DATE: STATUS: ADM IN [facility] [address] [place] [address] END OF REPORT
[2019-08-19 20:00] VITALS: BP 180/67
--- NOTE | 2019-08-19 21:40 | NUR ---
STOOL SAMPLE FOR CDT COLLECTED, LABELED AT BS, TAKEN TO LAB.
[2019-08-19 22:39] VITALS: BP 180/67; BMI 19.0
[2019-08-20 00:15] VITALS: BP 158/64
[2019-08-20 04:30] VITALS: BP 152/69
--- NOTE | 2019-08-20 04:30 | NUR ---
ASSISTED PATIENT TO BATHROOM AND BACK TO BED. CL IN REACH. WILL CTM.
[2019-08-20 09:00] VITALS: BP 128/56
--- NOTE | 2019-08-20 10:34 | NUR ---
PT ALERT X 4. BREATH SOUNDS CLEAR BILAT. LEFT CHEST PORT ACCESSED, NO COMPLICATIONS, PT TOLERATED WELL, GOOD BLOOD RETURN. IV TO LEFT FOREARM, SALINE LOCKED. PT REPORTING NO PAIN/NAUSEA/VOMITING AT THIS TIME. LAB WORK DRAWN PER PORT. FAMILY AT BEDSIDE. BED LOW, CALL LIGHT IN REACH. NO OTHER NEEDS AT THIS TIME.
[2019-08-20 11:03] LABS: BASOPHILS 0 % (0-2); EOSINOPHILS 0.1 % (0-7); HEMATOCRIT 27.8 % (36.0-48.0); HEMOGLOBIN 9.7 g/dL (12-16); IMMATURE GRANULOCYTES 0.4 % (0-5); LYMPHOCYTES 3.4 % (15-50); MCH 31.2 pg (26.0-34.0); MCHC 34.9 g/dL (31.0-37.0); MCV 89.4 fL (80.0-100.0); MEAN PLATELET VOLUME 9.3 fL (7.4-10.4); MONOCYTES 7.3 % (2-11); NEUTROPHILS 88.8 % (40-80); PLATELET COUNT 177 10x3/uL (130-400); RBC 3.11 10x6/uL (4.00-5.40); RDW 13.2 % (11.5-14.5)
[2019-08-20 11:05] LABS: WBC 18.2 10x3/uL (4.8-10.8)
[2019-08-20 11:06] LABS: % SATURATION 18 % (15-55); IRON 30 ug/dl (35-150); TOTAL IRON BIND CAPACITY 159 ug/dl (260-445); UNSAT IRON BIND CAPACITY 129 ug/dl (150-375)
[2019-08-20 11:39] LABS: ANION GAP 15.3 mmol/L (8-16); CALCIUM 7.5 mg/dL (8.5-10.1); CARBON DIOXIDE 19.5 mmol/L (21.0-32.0); CREATININE - SERUM 0.9 mg/dL (0.6-1.3); MAGNESIUM - SERUM 1.5 mg/dL (1.8-2.4); POTASSIUM - SERUM 3.8 mmol/L (3.5-5.1)
[2019-08-20 11:49] VITALS: Ht 165.1 cm; Wt 51.7 kg
[2019-08-20 17:16] VITALS: BP 136/65
[2019-08-20 20:21] VITALS: BP 120/69
[2019-08-21 00:39] VITALS: BP 126/69
[2019-08-21 04:29] VITALS: BP 124/62
[2019-08-21 07:47] LABS: BASOPHILS 0 % (0-2); EOSINOPHILS 0 % (0-7); HEMATOCRIT 28.1 % (36.0-48.0); HEMOGLOBIN 9.7 g/dL (12-16); IMMATURE GRANULOCYTES 0.5 % (0-5); LYMPHOCYTES 2.6 % (15-50); MCH 31.1 pg (26.0-34.0); MCHC 34.5 g/dL (31.0-37.0); MCV 90.1 fL (80.0-100.0); MEAN PLATELET VOLUME 9.5 fL (7.4-10.4); MONOCYTES 8.8 % (2-11); NEUTROPHILS 88.1 % (40-80); PLATELET COUNT 175 10x3/uL (130-400); RBC 3.12 10x6/uL (4.00-5.40); RDW 13.3 % (11.5-14.5)
[2019-08-21 08:00] LABS: ANION GAP 14.8 mmol/L (8-16); CALCIUM 7.3 mg/dL (8.5-10.1); CARBON DIOXIDE 19.6 mmol/L (21.0-32.0); CREATININE - SERUM 0.8 mg/dL (0.6-1.3); POTASSIUM - SERUM 3.4 mmol/L (3.5-5.1)
--- NOTE | 2019-08-21 08:43 | NUR ---
PT ALERT X 4. BREATH SOUNDS CLEAR BILAT. LEFT CHEST PORT, PATENT, DRESSING CDI. IV TO LEFT FOREARM, SALINE LOCKED. PT REPORTING NO PAIN/NAUSEA/VOMITING/DIARRHEA THIS MORNING. BED LOW, CALL LIGHT IN REACH. NO OTHER NEEDS AT THIS TIME.
[2019-08-21 08:58] VITALS: BP 107/68
[2019-08-21 16:49] VITALS: BP 130/65
[2019-08-21 19:21] VITALS: BP 133/70
--- NOTE | 2019-08-21 19:21 | NUR ---
PATIENT RESTING IN BED WITH NO S/S OF DISTRESS. VSS. PATIENT DENIES OTHER NEEDS AT THIS TIME. BED IN LOWEST POSITION AND CALL LIGHT WITHIN REACH. ENCOURAGED THE PATIENT TO CALL IF SHE HAS NEEDS. WILL CONTINUE TO MONITOR.
[2019-08-22] VITALS (7 sets, daily range): BP systolic 120–141; BP diastolic 52–80
[2019-08-22 06:18] LABS: BASOPHILS 0 % (0-2); EOSINOPHILS 0 % (0-7); HEMOGLOBIN 9.3 g/dL (12-16); IMMATURE GRANULOCYTES 0.4 % (0-5); LYMPHOCYTES 4.4 % (15-50); MCH 30.8 pg (26.0-34.0); MCHC 34.4 g/dL (31.0-37.0); MCV 89.4 fL (80.0-100.0); MEAN PLATELET VOLUME 9.3 fL (7.4-10.4); MONOCYTES 9.5 % (2-11); NEUTROPHILS 85.7 % (40-80); PLATELET COUNT 175 10x3/uL (130-400); RBC 3.02 10x6/uL (4.00-5.40); RDW 13.3 % (11.5-14.5); WBC 9.4 10x3/uL (4.8-10.8)
[2019-08-22 06:35] LABS: CARBON DIOXIDE 21.7 mmol/L (21.0-32.0); CHLORIDE - SERUM 100 mmol/L (98-107); CREATININE - SERUM 0.7 mg/dL (0.6-1.3); GLUCOSE 114 mg/dL (74-106); SODIUM 131 mmol/L (136-145); eGFR NON AFRICAN AMERICAN 85 mL/min (90-120)
[2019-08-22 06:41] LABS: CALC OSMOLALITY 260 mosm/kg (275-300); CALCIUM 6.9 mg/dL (8.5-10.1); UREA NITROGEN 5 mg/dL (7-18)
[2019-08-22 06:42] LABS: POTASSIUM - SERUM 2.9 mmol/L (3.5-5.1)
--- NOTE | 2019-08-22 07:10 | NUR ---
PATIENT RECIEVED RESTING IN BED WITH NO C/O VOICED. PT TOLERATING CL DIET WELL. CL IN REACH
--- NOTE | 2019-08-22 09:22 | NUR ---
NUTRITION F/U CLEAR LIQUID DIET STARTED, WILL MONITOR DIET ADVANCEMENT AND PT PROGRESS. RD FOLLOWING
--- NOTE | 2019-08-22 09:25 | MORECARE ---
CASE MANAGEMENT DISCHARGE SUMMARY PATIENT: RICHY CHRISTENSEN UNIT: [id number] ADM DATE: 08/19/19 AGE: 79 : 39 SEX: F ROOM/BED: D.1205 AUTHOR: ANNA,DOC PHYSICIAN: REFERRING PHYSICIAN: ECTOR STEVEN MD DATE OF SERVICE: 08/22/19 Discharge Plan Patient Name: RICHY CHRISTENSEN Facility: [facility]:[place] : 1940 Planned Disposition: Chcf Facility Anticipated Discharge Date: 08/22/19 Discharge Date: Expected LOS: 3 Initial Reviewer: [email or web address] Initial Review Date: 08/19/2019 Generated: 08/22/19 10:25 am DCP- Discharge Planning Updated by [email or web address]: Clementine Headley on 08/19/19 6:[address] DC PLAN:Return to Rehab at [facility] ANTICIPATED DC NEEDS: Discharge before 10am so NH will accept back. CM met with patient and her son to complete initial dc planning assessment. CM educated patient on the CM role and verbal consent given by patient to complete assessment. Patient is currently in rehab @ [facility]. At discharge patient plans to return to [facility] and feels this is a safe discharge. KARLA presented, explained, and signed by patient. Signed form place in chart and signed form left with patient. Patient denied further known discharge needs at this time. . Patient reports NH/or her son will transport her home at time of discharge. CM will continue to follow and will assist as needed with dc plans/needs. Clementine Headley RN, [facility] DCPIA - Discharge Planning Initial Assessment Updated by [email or web address]: Clementine Headley on 08/19/19 7:41 pm * Is the patient Alert and Oriented? Yes * How many steps to enter\exit or inside your home? none * PCP Dr. Caruso * Pharmacy [facility] * Preadmission Environment Chcf Facility * Facility Name [facility]. * ADLs Partial Dependent * Partial ADLs (Assistance needed) Bathing Dressing Medication Management * Equipment Rolling Walker * List name and contact numbers for known caregivers / representatives who currently or will assist patient after discharge: Joel Christensen - son - [phone] * Verbal permission to speak to the caregivers and representatives has been obtained from the patient. Yes * Community resources currently utilized None * Additional services required to return to the preadmission environment? No * Can the patient safely return to the preadmission environment? Yes * Has this patient been hospitalized within the prior 30 days at any hospital? Yes External Providers External Provider: [facility] Next Contact Date: Service Request Date: Service Type: Resolution: Reviewer: Comments: Last DP export: 08/19/19 6:50 p Patient Name: RICHY CHRISTENSEN Page 21311 at 0925 All edits/amendments must be made on the electronic document DICTATION DATE: 08/22/19924 TRAVELER CHANGER: GLEN 08/22/19924 RPT#: [id number] DC DATE: STATUS: ADM IN [facility] [address] [place] [address] END OF REPORT
--- NOTE | 2019-08-22 09:34 | MORECARE ---
CASE MANAGEMENT DISCHARGE SUMMARY PATIENT: RICHY CHRISTENSEN UNIT: [id number] ADM DATE: 08/19/19 AGE: 79 : 39 SEX: F ROOM/BED: D.1205 AUTHOR: ANNA,DOC PHYSICIAN: REFERRING PHYSICIAN: ECTOR STEVEN MD DATE OF SERVICE: 08/22/19 Discharge Plan Patient Name: RICHY CHRISTENSEN Facility: [facility]:[place] : 1940 Planned Disposition: Group Home Facility Anticipated Discharge Date: 08/22/19 Discharge Date: Expected LOS: 3 Initial Reviewer: [email or web address] Initial Review Date: 08/19/2019 Generated: 08/22/19 10:34 am DCP- Discharge Planning Updated by [email or web address]: Clementine Headley on 08/19/19 6:[address] DC PLAN:Return to Rehab at [facility] ANTICIPATED DC NEEDS: Discharge before 10am so NH will accept back. CM met with patient and her son to complete initial dc planning assessment. CM educated patient on the CM role and verbal consent given by patient to complete assessment. Patient is currently in rehab @ [facility]. At discharge patient plans to return to [facility] and feels this is a safe discharge. KARLA presented, explained, and signed by patient. Signed form place in chart and signed form left with patient. Patient denied further known discharge needs at this time. . Patient reports NH/or her son will transport her home at time of discharge. CM will continue to follow and will assist as needed with dc plans/needs. Clementine Headley RN, [facility] DCPIA - Discharge Planning Initial Assessment Updated by [id number]: Clementine Headley on 08/19/19 7:41 pm * Is the patient Alert and Oriented? Yes * How many steps to enter\exit or inside your home? none * PCP Dr. Caruso * Pharmacy [facility] * Preadmission Environment Group Home Facility * Facility Name [facility]. * ADLs Partial Dependent * Partial ADLs (Assistance needed) Bathing Dressing Medication Management * Equipment Rolling Walker * List name and contact numbers for known caregivers / representatives who currently or will assist patient after discharge: Joel Christensen - son - [phone] * Verbal permission to speak to the caregivers and representatives has been obtained from the patient. Yes * Community resources currently utilized None * Additional services required to return to the preadmission environment? No * Can the patient safely return to the preadmission environment? Yes * Has this patient been hospitalized within the prior 30 days at any hospital? Yes External Providers External Provider: [facility] Next Contact Date: Service Request Date: Service Type: Resolution: Reviewer: Comments: Last DP export: 08/22/19 8:25 a Patient Name: RICHY CHRISTENSEN Page 13118 at 0934 All edits/amendments must be made on the electronic document DICTATION DATE: 08/22/19933 BETTING AGENCY COUNTER CLERK: GLEN 08/22/19933 RPT#: [id number] DC DATE: STATUS: ADM IN [facility] [address] [place] [address] END OF REPORT
--- NOTE | 2019-08-22 13:33 | MORECARE ---
CASE MANAGEMENT DISCHARGE SUMMARY PATIENT: RICHY CHRISTENSEN UNIT: [id number] ADM DATE: 08/19/19 AGE: 79 : 39 SEX: F ROOM/BED: D.1205 AUTHOR: ANNA,DOC PHYSICIAN: REFERRING PHYSICIAN: ECTOR STEVEN MD DATE OF SERVICE: 08/22/19 Discharge Plan Patient Name: RICHY CHRISTENSEN Facility: [facility]:[place] : 1940 Planned Disposition: [facility]cf Facility Anticipated Discharge Date: 08/22/19 Discharge Date: Expected LOS: 3 Initial Reviewer: [email or web address] Initial Review Date: 08/19/2019 Generated: 08/22/19 2:33 pm DCP- Discharge Planning Updated by [email or web address]: Clementine Headley on 08/19/19 6:[address] DC PLAN:Return to Rehab at [facility] ANTICIPATED DC NEEDS: Discharge before 10am so NH will accept back. CM met with patient and her son to complete initial dc planning assessment. CM educated patient on the CM role and verbal consent given by patient to complete assessment. Patient is currently in rehab @ [facility]. At discharge patient plans to return to [facility] and feels this is a safe discharge. KARLA presented, explained, and signed by patient. Signed form place in chart and signed form left with patient. Patient denied further known discharge needs at this time. . Patient reports NH/or her son will transport her home at time of discharge. CM will continue to follow and will assist as needed with dc plans/needs. Clementine Headley RN, [facility] DCPIA - Discharge Planning Initial Assessment Updated by [email or web address]: Clementine Headley on 08/19/19 7:41 pm * Is the patient Alert and Oriented? Yes * How many steps to enter\exit or inside your home? none * PCP Dr. Caruso * Pharmacy [facility] * Preadmission Environment Chcf Facility * Facility Name [facility]. * ADLs Partial Dependent * Partial ADLs (Assistance needed) Bathing Dressing Medication Management * Equipment Rolling Walker * List name and contact numbers for known caregivers / representatives who currently or will assist patient after discharge: Joel Christensen - son - [phone] * Verbal permission to speak to the caregivers and representatives has been obtained from the patient. Yes * Community resources currently utilized None * Additional services required to return to the preadmission environment? No * Can the patient safely return to the preadmission environment? Yes * Has this patient been hospitalized within the prior 30 days at any hospital? Yes Last DP export: 08/22/19 8:34 a Patient Name: RICHY CHRISTENSEN Page [phone] at 1333 All edits/amendments must be made on the electronic document DICTATION DATE: 08/22/191332 [employer] SALES GREETER: GLEN 08/22/19 1333 RPT#: [id number] DC DATE: STATUS: ADM IN [facility] [address] [place] [address] END OF REPORT
--- NOTE | 2019-08-22 18:07 | MORECARE ---
CASE MANAGEMENT DISCHARGE SUMMARY PATIENT: RICHY CHRISTENSEN UNIT: [id number] ADM DATE: 08/19/19 AGE: 79 : 39 SEX: F ROOM/BED: D.1205 AUTHOR: ANNA,DOC PHYSICIAN: REFERRING PHYSICIAN: ECTOR STEVEN MD DATE OF SERVICE: 08/22/19 Discharge Plan Patient Name: RICHY CHRISTENSEN Facility: [facility]:[place] : 1940 Planned Disposition: Senior Care Facility Anticipated Discharge Date: 08/22/19 Discharge Date: Expected LOS: 3 Initial Reviewer: [email or web address] Initial Review Date: 08/19/2019 Generated: 08/22/19 7:07 pm Comments DCP- Discharge Planning Updated by [email or web address]: Lakeisha Ugarte on 08/22/19 5:[address] Late Entry 08/22/19 @ 0945 CM spoke with [facility]. [facility] stated that if patient is discharged then the patient had to be back to their facility before 2 pm. Patient is in a Medicare bed at the facility and will return to Medicare bed upon discharge. Facility wanting to know if son is planning on picking patient up or if she will need transportation. CM will find out if family will transport back or if patient will need transportation back. D/C IMM signed at 08/22/19 @ 1248. CM will continue to follow and assist as needed with discharge planning / needs DCP- Discharge Planning Updated by [email or web address]: Clementine Headley on 08/19/19 6:[address] DC PLAN:Return to Rehab at [facility] ANTICIPATED DC NEEDS: Discharge before 10am so NH will accept back. CM met with patient and her son to complete initial dc planning assessment. CM educated patient on the CM role and verbal consent given by patient to complete assessment. Patient is currently in rehab @ [facility]. At discharge patient plans to return to [facility] and feels this is a safe discharge. KARLA presented, explained, and signed by patient. Signed form place in chart and signed form left with patient. Patient denied further known discharge needs at this time. . Patient reports NH/or her son will transport her home at time of discharge. CM will continue to follow and will assist as needed with dc plans/needs. Clementine Headley RN, CCM DCPIA - Discharge Planning Initial Assessment Updated by [email or web address]: Clementine Headley on 08/19/19 7:41 pm * Is the patient Alert and Oriented? Yes * How many steps to enter\exit or inside your home? none * PCP Dr. Caruso * Pharmacy [facility] * Preadmission Environment Senior Care Facility * Facility Name [facility]. * ADLs Partial Dependent * Partial ADLs (Assistance needed) Bathing Dressing Medication Management * Equipment Rolling Walker * List name and contact numbers for known caregivers / representatives who currently or will assist patient after discharge: Joel Christensen - son - [phone] * Verbal permission to speak to the caregivers and representatives has been obtained from the patient. Yes * Community resources currently utilized None * Additional services required to return to the preadmission environment? No * Can the patient safely return to the preadmission environment? Yes * Has this patient been hospitalized within the prior 30 days at any hospital? Yes Coverage Notice Reviewer: [id number] Antoine Ugarte Notice Issued Date-Time: 08/22/2019 12:48 Notice Type: IM Discharge Notice Notice Delivered To: Patient Relationship to Patient: Self Medical Field Representative Name: Delivery Method: HAND - Hand Delivered Polly Days: Prior Verbal Notification: Recipient Understood Notice: Yes Recipient Signature: Yes Med Rec Note Co-signed by Attending: Coverage Notice Comment: Last DP export: 08/22/19 12:33 p Patient Name: RICHY CHRISTENSEN Page [phone] at 1807 All edits/amendments must be made on the electronic document DICTATION DATE: 08/22/191805 SULFUR BURNER: GLEN 08/22/191805 RPT#: [id number] DC DATE: STATUS: ADM IN [facility] [address] [place] [address] END OF REPORT
--- NOTE | 2019-08-22 18:31 | NUR ---
PATIENT RESTING IN BED. REPORTS ABDOMINAL PAIN AT TIMES WITH DIARRHEA ONCE TODAY. TOLERATES CLEAR LIQUIDS WELL.
[2019-08-23 04:00] VITALS: BP 123/63
[2019-08-23 07:23] LABS: BASOPHILS 0 % (0-2); EOSINOPHILS 0 % (0-7); HEMATOCRIT 27.3 % (36.0-48.0); HEMOGLOBIN 9.3 g/dL (12-16); IMMATURE GRANULOCYTES 0.5 % (0-5); LYMPHOCYTES 5.2 % (15-50); MCH 30.8 pg (26.0-34.0); MCHC 34.1 g/dL (31.0-37.0); MCV 90.4 fL (80.0-100.0); MEAN PLATELET VOLUME 9.2 fL (7.4-10.4); NEUTROPHILS 84.3 % (40-80); PLATELET COUNT 172 10x3/uL (130-400); RBC 3.02 10x6/uL (4.00-5.40); RDW 13.3 % (11.5-14.5); WBC 9.4 10x3/uL (4.8-10.8)
[2019-08-23 07:43] LABS: CALC OSMOLALITY 262 mosm/kg (275-300); CHLORIDE - SERUM 101 mmol/L (98-107); CREATININE - SERUM 0.7 mg/dL (0.6-1.3); GLUCOSE 113 mg/dL (74-106); POTASSIUM - SERUM 3.3 mmol/L (3.5-5.1); SODIUM 132 mmol/L (136-145); UREA NITROGEN 4 mg/dL (7-18); eGFR NON AFRICAN AMERICAN 85 mL/min (90-120)
[2019-08-23 08:52] VITALS: BP 125/61
--- NOTE | 2019-08-23 09:02 | NUR ---
PT ALERT X 4. WHEEZES UPON EXPIRTATION TO ALL GARCIA, SOB WITH ACTIVITY, PLACED ON 2L O2 PER NC DUE TO ACTIVE O2 SAT OF 90, GIVEN INCENTIVE SPIROMETER AND INSTRUCTED HOW TO USE. PORT TO LEFT CHEST, PATENT, DRESSING CDI. IV TO LEFT FOREARM, SALINE LOCKED. PT REPORTING WEAKNESS. HAVING DIARRHEA THIS MORNING. PT REPORTING NO PAIN AT THIS TIME. BED LOW, CALL LIGHT IN REACH. NO OTHER NEEDS AT THIS TIME.
[2019-08-23 17:28] VITALS: BP 128/59
[2019-08-23 19:50] VITALS: BP 129/68
--- NOTE | 2019-08-23 20:02 | NUR ---
EVENING ROUNDS COMPLETED. VSS, AAOX3, NO S/S OF RESP DISTRESS. PT ON 02 2L. PT DENIES ANY PAIN AT THIS TIME. ASSIST PT TO BATHROOM. PT VOICED THANKS. PT DENIES ANY FURTHER NEEDS AT THIS TIME. WILL CPOC. CL WITHIN REACH.
[2019-08-24] VITALS: BP 127/76
[2019-08-24 04:23] VITALS: BP 135/69
[2019-08-24 05:38] LABS: BASOPHILS 0 % (0-2); EOSINOPHILS 0.2 % (0-7); HEMATOCRIT 25.7 % (36.0-48.0); HEMOGLOBIN 8.8 g/dL (12-16); IMMATURE GRANULOCYTES 0.6 % (0-5); LYMPHOCYTES 4.2 % (15-50); MCH 30.9 pg (26.0-34.0); MCHC 34.2 g/dL (31.0-37.0); MCV 90.2 fL (80.0-100.0); MEAN PLATELET VOLUME 9.5 fL (7.4-10.4); MONOCYTES 9.6 % (2-11); NEUTROPHILS 85.4 % (40-80); PLATELET COUNT 136 10x3/uL (130-400); RBC 2.85 10x6/uL (4.00-5.40); RDW 13.2 % (11.5-14.5); WBC 8.9 10x3/uL (4.8-10.8)
[2019-08-24 06:02] LABS: CALC OSMOLALITY 263 mosm/kg (275-300); CARBON DIOXIDE 23.1 mmol/L (21.0-32.0); CHLORIDE - SERUM 100 mmol/L (98-107); GLUCOSE 112 mg/dL (74-106); SODIUM 133 mmol/L (136-145); UREA NITROGEN 5 mg/dL (7-18)
[2019-08-24 06:05] LABS: CREATININE - SERUM 0.5 mg/dL (0.6-1.3); eGFR NON AFRICAN AMERICAN > 90 mL/min (90-120)
--- NOTE | 2019-08-24 07:10 | NUR ---
REPORT RECIEVED FROM ADULT SPECIALIST AND PATIENT CARE ASSUMED. PATIENT LAYING IN BED ON RT SIDE AWAKE, ALERT AND ORIENTED X 4. PATIENT DENIES ANY NEEDS OR PAIN. PATIENT IS STABLE AND VSS. WILL CONTINUE WITH PLAN OF CARE. PATIENT UP TO BR. SR UP X 2 BED IN LOW POSITION AND CALL LIGHT IN REACH.
[2019-08-24 07:36] VITALS: BP 111/75
--- NOTE | 2019-08-24 09:49 | NUR ---
Nutrition Follow-up: Noted per MD notes, pt with coarse bs and not ready for D/C. Noted pt has been on clear liquid diet x 5 days now. Clear Liquid diet at goal does not meet estimated energy or protein needs. PO intake of CL diet (as recorded) ~75%. Consider adding ProCalamine if unable to advance diet today. RD Following
--- NOTE | 2019-08-24 10:48 | NUR ---
PATIENT IS STABLE AND VSS. DR HERNÁNDEZ IN ROOM. NEW ORDERS RECEIVED. SR UP X 2 BED IN LOW POSITION AND CALL LIGHT IN REACH.
[2019-08-24 11:30] VITALS: BP 114/70
--- NOTE | 2019-08-24 14:27 | NUR ---
PATIENT UP TO AMBULATION WITH PT. PATIENT TOLERATED WELL WITH SOME DYSPNEA. PATIENT BACK TO BED. PATIENT DENIES ANY NEEDS PAIN. WILL CONTINUE TO MONITOR. SR UP X 2 BED IN LOW POSITION AND CALL LIGHT IN REACH.
--- NOTE | 2019-08-24 15:32 | NUR ---
PATIENT IS STABLE AND VSS. PATIENT DENIES ANY NEEDS OR PAIN. COMPLETE BED BATH GIVEN WITH LOTION APPLIED. NEW PJ FROM PUT ON. COMPLETE LINEN CHANGE. PATIENT TOLERATED WELL. WILL CONTINUE TO MONITOR. SR UP X 2 BED IN LOW POSITION AND CALL LIGHT IN REACH.
--- NOTE | 2019-08-24 18:26 | NUR ---
PATIENT RESTING IN BED ON LT SIDE WITH EYES CLOSED AND BREATHING EVENLY. FERRICET IV INFUSION STARTED. WILL CONTINUE TO MONITOR. SR UP X 2 BED IN LOW POSITION AND CALL LIGHT IN REACH.
[2019-08-24 19:10] VITALS: BP 120/66
--- NOTE | 2019-08-24 19:42 | NUR ---
EVENING ROUNDS COMPLETED. VSS, AAOX4, NO S/S OF RESP DISTRESS. ASSIST PT TO THE BATHROOM. PT TOLERATE WELL. PT RESTING IN BED AT THIS TIME DENIES ANY FURTHER NEEDS THIS TIME. WILL CPOC. CL WITHIN REACH.
[2019-08-25] VITALS: BP 130/77
[2019-08-25 04:07] VITALS: BP 134/76
--- NOTE | 2019-08-25 07:10 | NUR ---
REPORT RECEVIED FROM UROLOGY PHYSICIAN ASSISTANT AND PATIENT CARE ASSUMED. PATIENT LAYING IN BED ON BACK AWAKE, ALERT AND ORIENTED X 4. PATIENT IS STABLE AND VSS. PATIENT DENIES ANY NEEDS OR PAIN. WILL CONTINUE WITH PLAN OF CARE. SR UP X 2 BED IN LOW POSITION AND CALL LIGHT IN REACH.
[2019-08-25 07:44] LABS: BASOPHILS 0 % (0-2); EOSINOPHILS 0.1 % (0-7); HEMATOCRIT 27.4 % (36.0-48.0); HEMOGLOBIN 9.3 g/dL (12-16); IMMATURE GRANULOCYTES 0.8 % (0-5); LYMPHOCYTES 4.8 % (15-50); MCH 30.8 pg (26.0-34.0); MCHC 33.9 g/dL (31.0-37.0); MCV 90.7 fL (80.0-100.0); MEAN PLATELET VOLUME 9.3 fL (7.4-10.4); MONOCYTES 8.7 % (2-11); NEUTROPHILS 85.6 % (40-80); RBC 3.02 10x6/uL (4.00-5.40); RDW 13.4 % (11.5-14.5)
[2019-08-25 07:46] LABS: PLATELET COUNT 176 10x3/uL (130-400)
[2019-08-25 08:08] LABS: CALCIUM 7.4 mg/dL (8.5-10.1); CARBON DIOXIDE 26.1 mmol/L (21.0-32.0); CHLORIDE - SERUM 96 mmol/L (98-107); CREATININE - SERUM 0.6 mg/dL (0.6-1.3); GLUCOSE 87 mg/dL (74-106); POTASSIUM - SERUM 3.6 mmol/L (3.5-5.1); SODIUM 130 mmol/L (136-145); eGFR NON AFRICAN AMERICAN > 90 mL/min (90-120)
[2019-08-25 08:10] VITALS: BP 120/70
[2019-08-25 08:25] LABS: CALC OSMOLALITY 257 mosm/kg (275-300); UREA NITROGEN 6 mg/dL (7-18)
[2019-08-25 12:29] VITALS: BP 124/65; BP 92/62
[2019-08-25 15:49] VITALS: BP 138/63
--- NOTE | 2019-08-25 18:07 | NUR ---
PATIENT LAYING IN BED ON BACK AWAKE AND ALERT AND VISITING WITH SON AT BS. PATIENT IS STABLE AND VSS. WILL CONTINUE TO MONITOR. SR UP X 2 BED IN LOW POSITION AND CALL LIGHT IN REACH.
[2019-08-25 19:52] VITALS: BP 131/58
[2019-08-26 00:07] VITALS: BP 137/60
[2019-08-26 04:32] VITALS: BP 126/53
[2019-08-26 07:04] LABS: BASOPHILS 0 % (0-2); EOSINOPHILS 0 % (0-7); HEMOGLOBIN 8.8 g/dL (12-16); IMMATURE GRANULOCYTES 0.5 % (0-5); LYMPHOCYTES 3.8 % (15-50); MCH 30.6 pg (26.0-34.0); MCHC 33.8 g/dL (31.0-37.0); MCV 90.3 fL (80.0-100.0); MEAN PLATELET VOLUME 9.4 fL (7.4-10.4); MONOCYTES 10.5 % (2-11); NEUTROPHILS 85.2 % (40-80); PLATELET COUNT 157 10x3/uL (130-400); RBC 2.88 10x6/uL (4.00-5.40); RDW 13.3 % (11.5-14.5); WBC 7.6 10x3/uL (4.8-10.8)
[2019-08-26 07:17] LABS: ALBUMIN 2.1 g/dL (3.4-5.0); ALKALINE PHOSPHATASE 103 U/L (46-116); ALT (SGPT) 13 U/L (10-68); BILIRUBIN - TOTAL 0.42 mg/dL (0.2-1.3); CALC OSMOLALITY 254 mosm/kg (275-300); CALCIUM 7.6 mg/dL (8.5-10.1); CARBON DIOXIDE 26.6 mmol/L (21.0-32.0); CHLORIDE - SERUM 95 mmol/L (98-107); CREATININE - SERUM 0.6 mg/dL (0.6-1.3); GLUCOSE 100 mg/dL (74-106); POTASSIUM - SERUM 3.3 mmol/L (3.5-5.1); PROTEIN - SERUM 5.1 g/dL (6.4-8.2); SODIUM 128 mmol/L (136-145); UREA NITROGEN 6 mg/dL (7-18); eGFR NON AFRICAN AMERICAN > 90 mL/min (90-120)
[2019-08-26 08:00] VITALS: BP 129/60
--- NOTE | 2019-08-26 10:05 | NUR ---
PATIENT ALERT/ORIENT. SON AT BEDSIDE. CALL LIGHT WITHIN REACH. VOICES NO NEEDS AT THIS TIME. WILL CONTINUE WITH PLAN OF CARE
--- NOTE | 2019-08-26 11:04 | NUR ---
Nutrition Consult/Follow Up: Patient consult for nutritional supplements to gain nutrients, prevent weight loss, and prevent esophagus pain. Patient stated that she has been having issues with her esophagus burning after eat/drinking foods. She stated that cold liquids irritate it the most. Patient concerned with oral intake being low. Dietitian trialed room temperature Ensure. Patient tolerated the room temperature Ensure. Ordered Ensure with meals. Clinical Dietitian to continue following [facility]
--- NOTE | 2019-08-26 11:30 | NUR ---
Rehab Note- Acute Inpatient Rehab prescreen order received. The patient is from [facility] & plans to return there. Thank you for this referral! Any Robertson RN Clinical Liaison, [facility] Rehab
--- NOTE | 2019-08-26 13:27 | NUR ---
DR. HERNÁNDEZ INTO SEE PATIENT. PATIENT WILL NOT BE DISCHARGING TODAY. PLAN TO KEEP PATIENT THROUGH THE WEEKEND
[2019-08-26 13:42] VITALS: BP 130/62
--- NOTE | 2019-08-26 15:26 | NUR ---
REMOVED SALINE LOCK FROM LEFT WRIST. PATIENT HAS A LEFT CHEST INFUSAPORT FOR IV MEDICATION AND FLUIDS
[2019-08-26 16:00] VITALS: BP 120/61
[2019-08-26 16:25] LABS: HEMATOCRIT 24.7 % (36.0-48.0); HEMOGLOBIN 8.4 g/dL (12-16)
[2019-08-26 19:20] VITALS: BP 120/59
--- NOTE | 2019-08-26 19:20 | NUR ---
ASSESSED VITAL SIGNS AND DOCUMENTED IT IN CHART. CONTINUE PLAN OF CARE.
--- NOTE | 2019-08-26 19:24 | MORECARE ---
CASE MANAGEMENT DISCHARGE SUMMARY PATIENT: RICHY CHRISTENSEN UNIT: [id number] ADM DATE: 08/19/19 AGE: 79 : 39 SEX: F ROOM/BED: D.1205 AUTHOR: ANNA,DOC PHYSICIAN: REFERRING PHYSICIAN: ECTOR STEVEN MD DATE OF SERVICE: 08/26/19 Discharge Plan Patient Name: RICHY CHRISTENSEN Facility: [facility]:[place] : 1940 Planned Disposition: Snf Facility Anticipated Discharge Date: 08/22/19 Discharge Date: Expected LOS: 3 Initial Reviewer: [email or web address] Initial Review Date: 08/19/2019 Generated: 08/26/19 8:24 pm Comments DCP- Discharge Planning Updated by [email or web address]: Lakeisha Ugarte on 08/26/19 6:[address] CM spoke with patient and her son. He stated and patient agrees that she is not ready for discharge today. Her son did state that the plan is for patient to go back to [facility] for Rehab not Inpatient Rehab @ [facility]. CM notified Dr. Viveros that patient and family don't believe she is ready for discharge @ this time. Dr. Viveros went an evaluated patient and agreed to cancel discharge. CM will continue to follow and assist as needed with discharge planning / needs DCP- Discharge Planning Updated by [id number]: Lakeisha Ugarte on 08/22/19 5:[address] Late Entry 08/22/19 @ 0945 CM spoke with Carlie @ [facility]. Carlie stated that if patient is discharged then the patient had to be back to their facility before 2 pm. Patient is in a Medicare bed at the facility and will return to Medicare bed upon discharge. Facility wanting to know if son is planning on picking patient up or if she will need transportation. CM will find out if family will transport back or if patient will need transportation back. D/C IMM signed at 08/22/19 @ 1248. CM will continue to follow and assist as needed with discharge planning / needs DCP- Discharge Planning Updated by [email or web address]: Clementine Headley on 08/19/19 6:[address] DC PLAN:Return to Rehab at [facility] ANTICIPATED DC NEEDS: Discharge before 10am so NH will accept back. CM met with patient and her son to complete initial dc planning assessment. CM educated patient on the CM role and verbal consent given by patient to complete assessment. Patient is currently in rehab @ [facility]. At discharge patient plans to return to [facility] and feels this is a safe discharge. KARLA presented, explained, and signed by patient. Signed form place in chart and signed form left with patient. Patient denied further known discharge needs at this time. . Patient reports NH/or her son will transport her home at time of discharge. CM will continue to follow and will assist as needed with dc plans/needs. Clementine Headley RN, [facility] DCPIA - Discharge Planning Initial Assessment Updated by [id number]: Clementine Headley on 08/19/19 7:41 pm * Is the patient Alert and Oriented? Yes * How many steps to enter\exit or inside your home? none * PCP Dr. Caruso * Pharmacy [facility] * Preadmission Environment Snf Facility * Facility Name [facility]. * ADLs Partial Dependent * Partial ADLs (Assistance needed) Bathing Dressing Medication Management * Equipment Rolling Walker * List name and contact numbers for known caregivers / representatives who currently or will assist patient after discharge: Joel Christensen - son - [phone] * Verbal permission to speak to the caregivers and representatives has been obtained from the patient. Yes * Community resources currently utilized None * Additional services required to return to the preadmission environment? No * Can the patient safely return to the preadmission environment? Yes * Has this patient been hospitalized within the prior 30 days at any hospital? Yes Coverage Notice Reviewer: [id number] - Lakeisha Ugarte Notice Issued Date-Time: 08/22/2019 12:48 Notice Type: IM Discharge Notice Notice Delivered To: Patient Relationship to Patient: Self Police Patrol Lieutenant Name: Delivery Method: HAND - Hand Delivered Polly Days: Prior Verbal Notification: Recipient Understood Notice: Yes Recipient Signature: Yes Med Rec Note Co-signed by Attending: Coverage Notice Comment: Last DP export: 08/22/19 5:07 p Patient Name: RICHY CHRISTENSEN Page [phone] at 1924 All edits/amendments must be made on the electronic document DICTATION DATE: 08/26/191923 DIRECTOR [employer] AFF[employer]: GLEN 08/26/191923 RPT#: [id number] DC DATE: STATUS: ADM IN [facility] [address] [place] [address] END OF REPORT
[2019-08-26 19:36] LABS: BASOPHILS 0 % (0-2); EOSINOPHILS 0 % (0-7); HEMATOCRIT 23.5 % (36.0-48.0); IMMATURE GRANULOCYTES 0.4 % (0-5); LYMPHOCYTES 4.7 % (15-50); MCH 30.7 pg (26.0-34.0); MEAN PLATELET VOLUME 8.9 fL (7.4-10.4); NEUTROPHILS 88.9 % (40-80); PLATELET COUNT 142 10x3/uL (130-400); RBC 2.61 10x6/uL (4.00-5.40); RDW 13.2 % (11.5-14.5)
[2019-08-26 19:43] LABS: CALC OSMOLALITY 260 mosm/kg (275-300); CALCIUM 7.1 mg/dL (8.5-10.1); CHLORIDE - SERUM 99 mmol/L (98-107); CREATININE - SERUM 0.7 mg/dL (0.6-1.3); GLUCOSE 134 mg/dL (74-106); POTASSIUM - SERUM 3.7 mmol/L (3.5-5.1); SODIUM 130 mmol/L (136-145); UREA NITROGEN 7 mg/dL (7-18); eGFR NON AFRICAN AMERICAN 85 mL/min (90-120)
--- NOTE | 2019-08-26 23:49 | NUR ---
ASSISTED PT TO BATHROOM AND BACK TO BED.
[2019-08-27 00:17] VITALS: BP 121/62
--- NOTE | 2019-08-27 02:05 | NUR ---
REST IN BED. EYE CLOSE. RESP REG AND EVEN, NO S/S OF DISTRESS. CALL LIGHT IN REACH.
--- NOTE | 2019-08-27 02:10 | NUR ---
I have reviewed this patient and I concur with the Shift Assessment completed by the Licensed Practical Nurse today this shift.
[2019-08-27 04:33] VITALS: BP 121/54
[2019-08-27 06:25] LABS: BASOPHILS 0.1 % (0-2); EOSINOPHILS 0.1 % (0-7); HEMATOCRIT 25.7 % (36.0-48.0); HEMOGLOBIN 8.7 g/dL (12-16); IMMATURE GRANULOCYTES 0.3 % (0-5); LYMPHOCYTES 4.7 % (15-50); MCH 31.2 pg (26.0-34.0); MCHC 33.9 g/dL (31.0-37.0); MEAN PLATELET VOLUME 9.5 fL (7.4-10.4); MONOCYTES 9.1 % (2-11); NEUTROPHILS 85.7 % (40-80); PLATELET COUNT 147 10x3/uL (130-400); RBC 2.79 10x6/uL (4.00-5.40); RDW 13.5 % (11.5-14.5)
[2019-08-27 06:26] LABS: MCV 92.1 fL (80.0-100.0); WBC 8.9 10x3/uL (4.8-10.8)
[2019-08-27 06:34] LABS: ALBUMIN 2.2 g/dL (3.4-5.0); ALKALINE PHOSPHATASE 98 U/L (46-116); ALT (SGPT) 12 U/L (10-68); BILIRUBIN - TOTAL 0.29 mg/dL (0.2-1.3); CALC OSMOLALITY 255 mosm/kg (275-300); CALCIUM 7.2 mg/dL (8.5-10.1); CARBON DIOXIDE 24.6 mmol/L (21.0-32.0); CHLORIDE - SERUM 97 mmol/L (98-107); CREATININE - SERUM 0.6 mg/dL (0.6-1.3); GLUCOSE 104 mg/dL (74-106); POTASSIUM - SERUM 3.5 mmol/L (3.5-5.1); PROTEIN - SERUM 4.7 g/dL (6.4-8.2); SODIUM 129 mmol/L (136-145); eGFR NON AFRICAN AMERICAN > 90 mL/min (90-120)
[2019-08-27 06:35] LABS: UREA NITROGEN 4 mg/dL (7-18)
--- NOTE | 2019-08-27 07:00 | NUR ---
PT GET UP TO BATHROOM, AND REFUSED SCD.
[2019-08-27 07:41] VITALS: BP 139/63
--- NOTE | 2019-08-27 07:54 | NUR ---
ROUNDING DONE WITH PAIENT LAYING ON LEFT SIDE, HOB AT 30 DEGREES. ON 2L PER NC. RESEV. RIGHT ARM (NO LYMPH NODES PER PATIENT STATES). SIGN PLACED ON DOOR AND ABOVE BED. LEFT IP SEEN WITH C/D/I DRESSING, D5NS INFUSING AT 100 CC/HR. ON EP, K+ IS 3.5, THIS WAS TREATED BY АНДРЕЙ JIMENEZ YARD RIGGER AND NEW LAB RE-DRAW ORDER PLACED. NEEDING STOOL SAMPLE, WILMER GUAMAN IN [facility]. DENIES ANY NEEDS AT THIS TIME.
--- NOTE | 2019-08-27 09:23 | NUR ---
SON AT BEDSIDE, ASSESSMENT COMPLETE. DENIES NEEDS. WANTS TO WAIT TILL LATER TO WASH UP. CONTINUE POC.
--- NOTE | 2019-08-27 10:50 | NUR ---
LAYING ON LEFT SIDE WITH HEAD OF BED UP AT 40 DEGREES, RESTING WITH EYES CLOSED. RESP EVEN. FAMILY MEMBERS AT BEDSIDE.
--- NOTE | 2019-08-27 11:45 | NUR ---
RESULT FROM REDRAW OF POTASSIUM IS 4.6. NO NEED FOR FURTHER ORAL SUPPLEMENT AT THIS TIME.
--- NOTE | 2019-08-27 12:05 | NUR ---
TEMP IS 100.0 ORAL. TYLENOL GIVEN ORDERED.
[2019-08-27 12:19] VITALS: BP 125/51
--- NOTE | 2019-08-27 12:48 | NUR ---
PATIENT IS UNABLE TO EAT THE VEGETABLE SOUP R/T THE ACID IN IT. CHICKEN NOODLE SOUP OFFERED AND PATIENT IS DRINKING THE BROTH.
--- NOTE | 2019-08-27 13:30 | NUR ---
ASSSITED TO CHAIR. COMPLETE BATH GIVEN AND BED LINEN CHANGED.
[2019-08-27 16:20] VITALS: BP 119/51
--- NOTE | 2019-08-27 17:28 | NUR ---
STILL NO STOOL AT THIS TIME FOR COLLECTION.
[2019-08-27 19:15] VITALS: BP 122/59
--- NOTE | 2019-08-27 19:16 | NUR ---
PATIENT RESTING IN BED WITH NO S/S OF DISTRESS AND DENIES NEEDS AT THIS TIME. VSS. BED IN LOWEST POSITION AND CALL LIGHT WITHIN REACH. ENCOURAGED THE PATIENT TO CALL IF SHE HAS NEEDS. WILL CONTINUE TO MONITOR.
[2019-08-28 00:53] VITALS: BP 124/65
[2019-08-28 04:25] VITALS: BP 139/68
[2019-08-28 04:48] LABS: BASOPHILS 0 % (0-2); EOSINOPHILS 0 % (0-7); HEMATOCRIT 24.5 % (36.0-48.0); HEMOGLOBIN 8.2 g/dL (12-16); IMMATURE GRANULOCYTES 0.4 % (0-5); LYMPHOCYTES 3.5 % (15-50); MCH 30.4 pg (26.0-34.0); MCHC 33.5 g/dL (31.0-37.0); MCV 90.7 fL (80.0-100.0); MEAN PLATELET VOLUME 9.3 fL (7.4-10.4); NEUTROPHILS 89.1 % (40-80); PLATELET COUNT 163 10x3/uL (130-400); RDW 13.3 % (11.5-14.5); WBC 10.6 10x3/uL (4.8-10.8)
[2019-08-28 05:11] LABS: ALBUMIN 2.1 g/dL (3.4-5.0); ALKALINE PHOSPHATASE 99 U/L (46-116); ALT (SGPT) 11 U/L (10-68); BILIRUBIN - TOTAL 0.26 mg/dL (0.2-1.3); CALC OSMOLALITY 259 mosm/kg (275-300); CALCIUM 7.5 mg/dL (8.5-10.1); CARBON DIOXIDE 26.4 mmol/L (21.0-32.0); CHLORIDE - SERUM 98 mmol/L (98-107); CREATININE - SERUM 0.6 mg/dL (0.6-1.3); GLUCOSE 102 mg/dL (74-106); PROTEIN - SERUM 5.2 g/dL (6.4-8.2); SODIUM 131 mmol/L (136-145); UREA NITROGEN 3 mg/dL (7-18); eGFR NON AFRICAN AMERICAN > 90 mL/min (90-120)
[2019-08-28 05:20] LABS: POTASSIUM - SERUM 3.6 mmol/L (3.5-5.1)
[2019-08-28 07:40] VITALS: BP 116/47
--- NOTE | 2019-08-28 08:52 | NUR ---
AM MEDS GIVEN AT THIS TIME. PT WAS ABLE TO SWALLOW SMALL PILLS WITH WATER, K PILLS GIVEN CRUSHED AN IN PUDDING. PT A LITTLE SOB ON 2L, ENCOURAGED PT TO TAKE IN DEEP BREATHS IN THROUGH HER NOSE AND OUT HER MOUTH. PT DENIES ANY OTHER NEEDS AT THIS TIME. LT CHEST INFUSAPORT INFUSING D5NS AT 100CC/HR, DRESSING CDI, BIOPATCH IN PLACE, NAD NOTED, WILL CONTINUE TO MONITOR.
[2019-08-28 12:10] VITALS: BP 120/62
--- NOTE | 2019-08-28 12:17 | NUR ---
NOTIFIED MANNY VILLARREAL APRN ABOUT PT WANTING SOMETHING FOR HER COUGH AND A SUPPOSITORY TO HELP HER WITH HER BP. NEW ORDER FOR TESSALON 100MG TID, DULCOLAX SUPP X2 REPEAT IN 4HRS IF NO RESULTS. CANCEL ORDER FOR CDIFF CULTURE.
--- NOTE | 2019-08-28 14:03 | NUR ---
PT TO CT, VIA WHEELCHAIR.
[2019-08-28 16:04] VITALS: BP 121/61
[2019-08-28 18:25] LABS: APPEARANCE CLEAR (CLEAR); COLOR STRAW (YELLOW); SPECIFIC GRAVITY 1.005 (1.005-1.020)
[2019-08-28 18:26] LABS: BILIRUBIN NEGATIVE (NEGATIVE); GLUCOSE NEGATIVE (NEGATIVE); KETONE NEGATIVE (NEGATIVE); NITRITE NEGATIVE (NEGATIVE); PROTEIN NEGATIVE (NEGATIVE); UROBILINOGEN NORMAL (NORMAL)
--- NOTE | 2019-08-28 18:31 | NUR ---
PT RESTING COMFORTABLY IN BED, DENIES ANY NEEDS AT THIS TIME. CALL LIGHT IN REACH, BEDSIDE RAILS X2, NAD NOTED.
[2019-08-28 19:15] VITALS: BP 122/68
--- NOTE | 2019-08-28 19:15 | NUR ---
PATIENT RESTING IN BED AND DENIES NEEDS AT THIS TIME. NO S/S OF DISTRESS. VSS. BED IN LOWEST POSITION AND CALL LIGHT WITHIN REACH. ENCOURAGED THE PATIENT TO CALL IF SHE HAS NEEDS. WILL CONTINUE TO MONITOR.
[2019-08-29 01:00] VITALS: BP 127/70
[2019-08-29 04:00] VITALS: BP 127/65
[2019-08-29 06:22] LABS: BASOPHILS 0.1 % (0-2); EOSINOPHILS 0 % (0-7); HEMATOCRIT 23.2 % (36.0-48.0); HEMOGLOBIN 7.9 g/dL (12-16); IMMATURE GRANULOCYTES 0.4 % (0-5); LYMPHOCYTES 3.7 % (15-50); MCHC 34.1 g/dL (31.0-37.0); MEAN PLATELET VOLUME 9.5 fL (7.4-10.4); MONOCYTES 8.4 % (2-11); NEUTROPHILS 87.4 % (40-80); PLATELET COUNT 175 10x3/uL (130-400); RBC 2.55 10x6/uL (4.00-5.40); RDW 13.5 % (11.5-14.5); WBC 9.4 10x3/uL (4.8-10.8)
[2019-08-29 06:36] LABS: ALBUMIN 2.1 g/dL (3.4-5.0); ALKALINE PHOSPHATASE 101 U/L (46-116); ALT (SGPT) 12 U/L (10-68); BILIRUBIN - TOTAL 0.25 mg/dL (0.2-1.3); CALC OSMOLALITY 255 mosm/kg (275-300); CALCIUM 7.1 mg/dL (8.5-10.1); CARBON DIOXIDE 25.4 mmol/L (21.0-32.0); CHLORIDE - SERUM 98 mmol/L (98-107); CREATININE - SERUM 0.5 mg/dL (0.6-1.3); GLUCOSE 97 mg/dL (74-106); POTASSIUM - SERUM 3.3 mmol/L (3.5-5.1); PROTEIN - SERUM 5.1 g/dL (6.4-8.2); SODIUM 129 mmol/L (136-145); eGFR NON AFRICAN AMERICAN > 90 mL/min (90-120)
[2019-08-29 06:44] LABS: UREA NITROGEN 4 mg/dL (7-18)
--- NOTE | 2019-08-29 07:19 | NUR ---
PT RESTING IN BED WITH EYES CLOSED, EASILY AROUSED TO VOICE. LEFT PORT PRESENT RUNNING D5NS @ 100. NO S/S OF DISTRESS AT THIS TIME, DENIES NEEDS, WILL CONTINUE TO MONITOR. BED LOW, RAILS UP X 2, CALL LIGHT IN REACH.
[2019-08-29 08:19] VITALS: BP 139/64
[2019-08-29 12:10] VITALS: BP 139/66
--- NOTE | 2019-08-29 13:48 | NUR ---
Nutrition Follow-up: Diet: [place]/GI PO intake: 36% average x 9 meals States that she is eating a little. Son is helping her at meal times. States that Ensure Enlive was giving her diarrhea and she cannot tolerate it. She is willing to try Ensure Clear if it is COLD. Significant meds: lasix, zithromax, prednisone. Labs noted. Last BM: 08/28/19 Wt: 114# (08/20/19) Continue [place]/GI diet. Will change Ensure to Ensure Clear for pt to trial. RD will continue to Monitor.
[2019-08-29 17:23] VITALS: BP 130/66
[2019-08-29 19:18] VITALS: BP 131/69
--- NOTE | 2019-08-29 19:18 | NUR ---
PATIENT RESTINGI IN BED AND DENIES NEEDS AT THIS TIME. BED IN LOWEST POSITION AND CALL LIGHT WITHIN REACH. VSS. ENCOURAGED THE PATIENT TO CALL IF SHE HAS NEEDS. WILL CONTINUE TO MONITOR.
[2019-08-30 00:08] VITALS: BP 133/67
[2019-08-30 04:27] VITALS: BP 152/72
[2019-08-30 06:14] LABS: BASOPHILS 0.1 % (0-2); EOSINOPHILS 0 % (0-7); IMMATURE GRANULOCYTES 0.5 % (0-5); LYMPHOCYTES 5.3 % (15-50); MCH 30.5 pg (26.0-34.0); MCHC 34.6 g/dL (31.0-37.0); MEAN PLATELET VOLUME 9.5 fL (7.4-10.4); MONOCYTES 7.5 % (2-11); NEUTROPHILS 86.6 % (40-80); PLATELET COUNT 153 10x3/uL (130-400); RDW 13.9 % (11.5-14.5); WBC 9.1 10x3/uL (4.8-10.8)
[2019-08-30 06:23] LABS: HEMATOCRIT 33.5 % (36.0-48.0); HEMOGLOBIN 11.6 g/dL (12-16); MCV 88.2 fL (80.0-100.0)
[2019-08-30 06:38] LABS: ALBUMIN 2.2 g/dL (3.4-5.0); ALKALINE PHOSPHATASE 107 U/L (46-116); ALT (SGPT) 12 U/L (10-68); BILIRUBIN - TOTAL 0.57 mg/dL (0.2-1.3); CALC OSMOLALITY 257 mosm/kg (275-300); CALCIUM 7.1 mg/dL (8.5-10.1); CARBON DIOXIDE 25.1 mmol/L (21.0-32.0); CHLORIDE - SERUM 97 mmol/L (98-107); CREATININE - SERUM 0.5 mg/dL (0.6-1.3); GLUCOSE 95 mg/dL (74-106); POTASSIUM - SERUM 3.2 mmol/L (3.5-5.1); PROTEIN - SERUM 5.4 g/dL (6.4-8.2); SODIUM 130 mmol/L (136-145); UREA NITROGEN 4 mg/dL (7-18); eGFR NON AFRICAN AMERICAN > 90 mL/min (90-120)
--- NOTE | 2019-08-30 07:17 | NUR ---
PT RESTING IN BED WITH EYES CLOSED, EASILY AROUSED TO SPEECH. ALERT AND ORIENTED, NO S/S OF DISTRESS AT THIS TIME OTHER THAN VERY FREQUENT COUGHING SPELLS. LEFT CHEST PORT PRESENT RUNNING D2NS @ 100. STILL HASNT HAD A BM. CURRENTLY RCVING 2L VIA NC. DENIES NEEDS AT THIS TIME, WILL CONT TO MONITOR.
[2019-08-30 08:00] VITALS: BP 138/69
[2019-08-30 11:52] VITALS: BP 124/63; BP 138/78
[2019-08-30 15:10] LABS: ERYTHROCYTE SEDIMENTATION RATE 26 mm/hr (0-30)
[2019-08-30 16:44] VITALS: BP 135/68
--- NOTE | 2019-08-30 17:05 | NUR ---
PUT IN ORDER FOR SOUP FOR PT, COULD NOT EAT THE NOODLES AND MEAT THAT SHE WAS GIVEN. DENIES OTHER NEEDS AT THIS TIME, WILL CONT TO MONITOR.
[2019-08-30 19:24] VITALS: BP 137/67
--- NOTE | 2019-08-30 19:30 | NUR ---
REPORT RECEIVED, WILL CONTINUE POC. PATIENT IS A/OX4, UP WALKING AROUND ROOM. NO S/S OF DISTRESS OBSERVED. RR EVEN BUT LABORED ON 2L O2 VIA NC. LT CHEST INFUSING D5NS @100ML/HR, PATENT, DRSG C/D/I. PATIENT DENIES FURTHER NEEDS AT THIS TIME. CL IN REACH, BED LOCKED AND LOWERED. WILL CTM.
[2019-08-31 00:04] VITALS: BP 119/57
[2019-08-31 04:00] VITALS: BP 132/70
[2019-08-31 05:43] LABS: BASOPHILS 0.1 % (0-2); EOSINOPHILS 0.1 % (0-7); HEMATOCRIT 34.4 % (36.0-48.0); HEMOGLOBIN 11.8 g/dL (12-16); IMMATURE GRANULOCYTES 0.8 % (0-5); LYMPHOCYTES 6.4 % (15-50); MCH 30.3 pg (26.0-34.0); MCHC 34.3 g/dL (31.0-37.0); MCV 88.4 fL (80.0-100.0); MEAN PLATELET VOLUME 9.6 fL (7.4-10.4); MONOCYTES 11.4 % (2-11); NEUTROPHILS 81.2 % (40-80); PLATELET COUNT 182 10x3/uL (130-400); RBC 3.89 10x6/uL (4.00-5.40); RDW 14.1 % (11.5-14.5); WBC 7.7 10x3/uL (4.8-10.8)
[2019-08-31 05:47] LABS: CALC OSMOLALITY 244 mosm/kg (275-300); CALCIUM 7.3 mg/dL (8.5-10.1); CARBON DIOXIDE 25.2 mmol/L (21.0-32.0); CHLORIDE - SERUM 97 mmol/L (98-107); CREATININE - SERUM 0.5 mg/dL (0.6-1.3); GLUCOSE 100 mg/dL (74-106); POTASSIUM - SERUM 3.1 mmol/L (3.5-5.1); SODIUM 123 mmol/L (136-145); UREA NITROGEN 3 mg/dL (7-18); eGFR NON AFRICAN AMERICAN > 90 mL/min (90-120)
--- NOTE | 2019-08-31 07:15 | NUR ---
PT RESTING, EYES CLOSED. RR EVEN AND UNLABORED. NO DISTRESS NOTED. WILL CONTINUE TO MONITOR.
[2019-08-31 08:13] VITALS: BP 142/63
--- NOTE | 2019-08-31 12:27 | NUR ---
PT SITTING UP ON SIDE OF BED TO EAT. TOLERATING MEAL WELL. CRUSHED CARAFATE AND MIXED WITH APPLESAUCE.
--- NOTE | 2019-08-31 15:00 | NUR ---
RECIEVED BATH, CLOTHES AND LINEN CHANGED.
--- NOTE | 2019-08-31 15:20 | NUR ---
Nutrition Follow-up: Chart reviewed. [employer] recs continue Mech soft with thin liquids for now. Noted MD ordered 48hr calorie count and to start megace. Diet: [place]/GI Mech soft with thin liquids + Ensure Clear PO intake: 25-50% most recently Patient states that she likes the Ensure clear and is drinking them between meals. States that she is eating as much as she can. Reports early satiety. Last BM 08/28/19. Last wt: 114# (08/20/19) Continue current diet, or per [employer]. Continue Ensure Clear TID. Calorie Count. RD Following
[2019-08-31 19:35] VITALS: BP 121/74
--- NOTE | 2019-08-31 19:35 | NUR ---
PT RESTING COMFORTABLY. VITAL SIGNS STABLE. RESPIRATIONS EVEN AND UNLABORED. SHE DENIES PAIN OR NEEDS AT THIS TIME. REMINDED HER THAT WE NEED A STOOL SAMPLE TO CHECK FOR BLEEDING. SHE STATES SHE HAS NOT HAD A BOWEL MOVEMENT IN 2-3 DAYS BUT SHE DOES NOT FEEL CONSTIPATED. SHE STATES SHE HAS NOT BEEN EATING MUCH. BED LOW. CALL LIGHT IN REACH. WILL CONTINUE TO MONITOR.
--- NOTE | 2019-08-31 21:00 | NUR ---
PORT DRESSING CHANGED.
[2019-09-01 04:16] VITALS: BP 126/74
[2019-09-01 05:50] LABS: BASOPHILS 0 % (0-2); EOSINOPHILS 0 % (0-7); HEMATOCRIT 33.6 % (36.0-48.0); HEMOGLOBIN 11.7 g/dL (12-16); LYMPHOCYTES 8.4 % (15-50); MCH 30.6 pg (26.0-34.0); MCHC 34.8 g/dL (31.0-37.0); MEAN PLATELET VOLUME 9.6 fL (7.4-10.4); MONOCYTES 14.7 % (2-11); NEUTROPHILS 75.9 % (40-80); PLATELET COUNT 163 10x3/uL (130-400); RBC 3.82 10x6/uL (4.00-5.40); RDW 14.1 % (11.5-14.5); WBC 5.9 10x3/uL (4.8-10.8)
[2019-09-01 05:58] LABS: CALCIUM 7.6 mg/dL (8.5-10.1); CARBON DIOXIDE 23.8 mmol/L (21.0-32.0); CHLORIDE - SERUM 98 mmol/L (98-107); CREATININE - SERUM 0.5 mg/dL (0.6-1.3); GLUCOSE 86 mg/dL (74-106); SODIUM 129 mmol/L (136-145); eGFR NON AFRICAN AMERICAN > 90 mL/min (90-120)
[2019-09-01 05:59] LABS: CALC OSMOLALITY 255 mosm/kg (275-300); POTASSIUM - SERUM 3.6 mmol/L (3.5-5.1); UREA NITROGEN 6 mg/dL (7-18)
--- NOTE | 2019-09-01 07:02 | NUR ---
REPORT RECEIVED. WILL CONTINUE WITH POC. PT CURRENTLY LYING ASLEEP ON LEFT SIDE WITH EYES CLOSED. RR EVEN AND UNLABORED ON 2L 02. L.PORT IS SALINE LOCKED. NO S/S OF DISTRESS NOTED. PT DENIES ANY NEEDS. WILL CTM.
[2019-09-01 07:35] VITALS: BP 139/72
--- NOTE | 2019-09-01 07:42 | NUR ---
CALORIE COUNT 08/31/19 KCALGM PROTEIN [id number] WILL CONTINUE MARICEL COUNT
--- NOTE | 2019-09-01 09:21 | NUR ---
AM MEDICATIONS ADMININSTERED. PT DENIES ANY NEEDS. WILL CTM. FAMILY AT BEDSIDE.
[2019-09-01 11:21] VITALS: BP 121/66
--- NOTE | 2019-09-01 14:53 | MORECARE ---
CASE MANAGEMENT DISCHARGE SUMMARY PATIENT: RICHY REGAN UNIT: [id number] ADM DATE: 08/19/19 AGE: 79 : 38 SEX: F ROOM/BED: D.1205 AUTHOR: ANNA,DOC PHYSICIAN: REFERRING PHYSICIAN: ECTOR STEVEN MD DATE OF SERVICE: 09/01/19 Discharge Plan Patient Name: RICHY REGAN Facility: [facility]:[place] : 1940 Planned Disposition: Halfway Facility Anticipated Discharge Date: 08/22/19 Discharge Date: Expected LOS: 3 Initial Reviewer: [id number] Initial Review Date: 08/19/2019 Generated: 09/01/19 3:53 pm Comments DCP- Discharge Planning Updated by [email or web address]: Lakeisha Ugarte on 09/01/19 1:[address] CM called and spoke with Isatu @ [facility] [phone]. CM informed Isatu that patient may potentially be discharged tomorrow. Isatu asked if son will transport or if they will need to provide transportation. CM stated not sure haven't spoken with son today. CM will be faxing over update records to facility today in prep for discharge tomorrow. CM will continue to follow and assist with discharge planning / needs. DCP- Discharge Planning Updated by [id number]: Lakeisha Ugarte on 08/26/19 6:[address] CM spoke with patient and her son. He stated and patient agrees that she is not ready for discharge today. Her son did state that the plan is for patient to go back to [facility] for Rehab not Inpatient Rehab @ [facility]. CM notified Dr. Viveros that patient and family don't believe she is ready for discharge @ this time. Dr. Viveros went an evaluated patient and agreed to cancel discharge. CM will continue to follow and assist as needed with discharge planning / needs DCP- Discharge Planning Updated by [id number]: Lakeisha Ugarte on 08/22/19 5:[address] Late Entry 08/22/19 @ 0945 CM spoke with Carlie @ [facility]. Carlie stated that if patient is discharged then the patient had to be back to their facility before 2 pm. Patient is in a Medicare bed at the facility and will return to Medicare bed upon discharge. Facility wanting to know if son is planning on picking patient up or if she will need transportation. CM will find out if family will transport back or if patient will need transportation back. D/C IMM signed at 08/22/19 @ 1248. CM will continue to follow and assist as needed with discharge planning / needs DCP- Discharge Planning Updated by [id number]: Clementine Headley on 08/19/19 6:[address] DC PLAN:Return to Rehab at [facility] ANTICIPATED DC NEEDS: Discharge before 10am so NH will accept back. CM met with patient and her son to complete initial dc planning assessment. CM educated patient on the CM role and verbal consent given by patient to complete assessment. Patient is currently in rehab @ [facility]. At discharge patient plans to return to [facility] and feels this is a safe discharge. KARLA presented, explained, and signed by patient. Signed form place in chart and signed form left with patient. Patient denied further known discharge needs at this time. . Patient reports NH/or her son will transport her home at time of discharge. CM will continue to follow and will assist as needed with dc plans/needs. Clementine Headley RN, [facility] DCPIA - Discharge Planning Initial Assessment Updated by [email or web address]: Clementine Headley on 08/19/19 7:41 pm * Is the patient Alert and Oriented? Yes * How many steps to enter\exit or inside your home? none * PCP Dr. Caruso * Pharmacy [facility] * Preadmission Environment Halfway Facility * Facility Name [facility]. * ADLs Partial Dependent * Partial ADLs (Assistance needed) Bathing Dressing Medication Management * Equipment Rolling Walker * List name and contact numbers for known caregivers / representatives who currently or will assist patient after discharge: Joel pace - [phone] * Verbal permission to speak to the caregivers and representatives has been obtained from the patient. Yes * Community resources currently utilized None * Additional services required to return to the preadmission environment? No * Can the patient safely return to the preadmission environment? Yes * Has this patient been hospitalized within the prior 30 days at any hospital? Yes Coverage Notice Reviewer: [email or web address] Antoine Milane Shanel Notice Issued Date-Time: 08/22/2019 12:48 Notice Type: IM Discharge Notice Notice Delivered To: Patient Relationship to Patient: Self Folder Inspector Name: Delivery Method: HAND - Hand Delivered Polly Days: Prior Verbal Notification: Recipient Understood Notice: Yes Recipient Signature: Yes Med Rec Note Co-signed by Attending: Coverage Notice Comment: Reviewer: [email or web address] Antoine Torres Notice Issued Date-Time: 08/30/2019 11:34 Notice Type: IM Discharge Notice Notice Delivered To: Patient Relationship to Patient: Folder Inspector Name: Delivery Method: HAND - Hand Delivered Polly Days: Prior Verbal Notification: Recipient Understood Notice: Yes Recipient Signature: Yes Med Rec Note Co-signed by Attending: Coverage Notice Comment: Last DP export: 08/26/19 6:24 p Patient Name: RICHY REGAN Page [id number] at 1453 All edits/amendments must be made on the electronic document DICTATION DATE: 09/01/191452 PIPE LINER: GLEN 09/01/191452 RPT#: [id number] DC DATE: STATUS: ADM IN [facility] [address] [place] [address] END OF REPORT
[2019-09-01 17:21] VITALS: BP 124/61
--- NOTE | 2019-09-01 19:00 | NUR ---
REPORT RECEIVED, WILL CONTINUE POC. PATIENT IS A/OX4, UP AD PAULINA. PATIENT RESTING WITH EYES CLOSED. NO S/S OF DISTRESS NOTED, RR EVEN AND UNLABORED ON 2L O2 VIA NC. PATIENT HAS LT CHEST INFUSAPORT QAMAR, BETH C/D/I. CL IN REACH, BED LOCKED AND LOWERED. WILL CTM.
--- NOTE | 2019-09-01 19:07 | NUR ---
I have reviewed this patient and I concur with the Shift Assessment completed by the Licensed Practical Nurse today this shift.
[2019-09-01 20:00] VITALS: BP 127/71
[2019-09-02 00:37] VITALS: BP 133/69
[2019-09-02 04:25] VITALS: BP 133/76
[2019-09-02 06:54] LABS: CALC OSMOLALITY 256 mosm/kg (275-300); CALCIUM 7.8 mg/dL (8.5-10.1); CARBON DIOXIDE 23.7 mmol/L (21.0-32.0); CHLORIDE - SERUM 96 mmol/L (98-107); CREATININE - SERUM 0.7 mg/dL (0.6-1.3); GLUCOSE 99 mg/dL (74-106); POTASSIUM - SERUM 3.5 mmol/L (3.5-5.1); SODIUM 129 mmol/L (136-145); UREA NITROGEN 8 mg/dL (7-18); eGFR NON AFRICAN AMERICAN 85 mL/min (90-120)
[2019-09-02 07:01] LABS: BASOPHILS 0.1 % (0-2); EOSINOPHILS 0.3 % (0-7); HEMATOCRIT 35.7 % (36.0-48.0); HEMOGLOBIN 12.6 g/dL (12-16); IMMATURE GRANULOCYTES 1.6 % (0-5); LYMPHOCYTES 10.5 % (15-50); MCH 30.9 pg (26.0-34.0); MCHC 35.3 g/dL (31.0-37.0); MCV 87.5 fL (80.0-100.0); MEAN PLATELET VOLUME 9.5 fL (7.4-10.4); MONOCYTES 14.6 % (2-11); NEUTROPHILS 72.9 % (40-80); RBC 4.08 10x6/uL (4.00-5.40); WBC 7.3 10x3/uL (4.8-10.8)
[2019-09-02 07:02] LABS: PLATELET COUNT 199 10x3/uL (130-400)
--- NOTE | 2019-09-02 07:30 | NUR ---
CALORIE COUNT 09/01/19 KCALGM PROTEIN [id number]
--- NOTE | 2019-09-02 07:51 | NUR ---
PT RESTING, EYES CLOSED. RR EVEN AND UNLABORED. NO DISTRESS NOTED. WILL CONTINUE TO MONITOR.
[2019-09-02 08:44] VITALS: BP 121/64
[2019-09-02 10:20] LABS: MAGNESIUM - SERUM 1.5 mg/dL (1.8-2.4)
--- NOTE | 2019-09-02 12:09 | NUR ---
I have reviewed this patient and I concur with the Shift Assessment completed by the Licensed Practical Nurse today this shift.
--- NOTE | 2019-09-02 19:15 | NUR ---
PATIENT LYING IN BED WITH EYES CLOSED. PATIENT AROUSES TO MY VOICE. PATIENT HAS TACHYPNEA AT THIS TIME, BREATHING SEEMS A LITTLE LABORED. ENCOURAGED PATIENT TO CALL WITH ANY NEEDS. CALL LIGHT AND BEDSIDE TABLE WITHIN REACH.
[2019-09-02 19:38] VITALS: BP 123/67
[2019-09-02 23:38] VITALS: BP 130/74
[2019-09-03 04:21] VITALS: BP 128/77
[2019-09-03 06:42] LABS: BASOPHILS 0 % (0-2); EOSINOPHILS 0.2 % (0-7); HEMATOCRIT 35.3 % (36.0-48.0); HEMOGLOBIN 12.3 g/dL (12-16); IMMATURE GRANULOCYTES 2.5 % (0-5); LYMPHOCYTES 9.9 % (15-50); MCHC 34.8 g/dL (31.0-37.0); MCV 88.9 fL (80.0-100.0); MEAN PLATELET VOLUME 9.5 fL (7.4-10.4); MONOCYTES 19.2 % (2-11); NEUTROPHILS 68.2 % (40-80); PLATELET COUNT 167 10x3/uL (130-400); RBC 3.97 10x6/uL (4.00-5.40); RDW 13.8 % (11.5-14.5)
[2019-09-03 06:47] LABS: WBC 5.3 10x3/uL (4.8-10.8)
[2019-09-03 07:04] LABS: CALC OSMOLALITY 255 mosm/kg (275-300); CALCIUM 8.2 mg/dL (8.5-10.1); CARBON DIOXIDE 24.8 mmol/L (21.0-32.0); CHLORIDE - SERUM 97 mmol/L (98-107); CREATININE - SERUM 0.7 mg/dL (0.6-1.3); GLUCOSE 98 mg/dL (74-106); POTASSIUM - SERUM 3.9 mmol/L (3.5-5.1); SODIUM 128 mmol/L (136-145); UREA NITROGEN 10 mg/dL (7-18); eGFR NON AFRICAN AMERICAN 85 mL/min (90-120)
[2019-09-03 08:23] VITALS: BP 119/52
--- NOTE | 2019-09-03 08:28 | NUR ---
ALERT AND ORIENTED. NO C/O PAIN, RESP EVEN AND UNLABORED. CL IN REACH.
[2019-09-03 09:51] LABS: ALBUMIN 2.4 g/dL (3.4-5.0); ALKALINE PHOSPHATASE 120 U/L (46-116); ALT (SGPT) 14 U/L (10-68); AMYLASE - SERUM 201 U/L (25-115); BILIRUBIN - TOTAL 0.42 mg/dL (0.2-1.3); CALC OSMOLALITY 251 mosm/kg (275-300); CALCIUM 8.3 mg/dL (8.5-10.1); CARBON DIOXIDE 24.4 mmol/L (21.0-32.0); CHLORIDE - SERUM 94 mmol/L (98-107); CREATININE - SERUM 0.6 mg/dL (0.6-1.3); GLUCOSE 96 mg/dL (74-106); LIPASE 1052 U/L (73-393); POTASSIUM - SERUM 3.9 mmol/L (3.5-5.1); PROTEIN - SERUM 5.9 g/dL (6.4-8.2); SODIUM 126 mmol/L (136-145); UREA NITROGEN 10 mg/dL (7-18); eGFR NON AFRICAN AMERICAN > 90 mL/min (90-120)
--- NOTE | 2019-09-03 13:44 | NUR ---
FAMILY AT BS, NO CHANGE IN ASSESSEMNT. CL IN REACH.
[2019-09-03 16:24] VITALS: BP 139/71
--- NOTE | 2019-09-03 16:26 | NUR ---
EATING DINNER. NO DISTRESS NOTED. CL IN REACH.
[2019-09-03 19:40] VITALS: BP 122/61
[2019-09-03 23:52] VITALS: BP 126/50
[2019-09-04 04:38] VITALS: BP 124/59
[2019-09-04 07:17] VITALS: BP 125/56
--- NOTE | 2019-09-04 07:22 | NUR ---
PT AWAKE AND ORIENTED, NO COMPLAINTS OR CONCERNS AT THIS TIME. ALL QUESTIONS ANSWERED TO THE BEST OF MY ABILITY. CL IN REACH, SRX2, NO FAMILY PRESENT THIS MRONING.
[2019-09-04 07:50] LABS: AMYLASE - SERUM 207 U/L (25-115); CALC OSMOLALITY 251 mosm/kg (275-300); CARBON DIOXIDE 23.8 mmol/L (21.0-32.0); CHLORIDE - SERUM 95 mmol/L (98-107); CREATININE - SERUM 0.7 mg/dL (0.6-1.3); GLUCOSE 100 mg/dL (74-106); LIPASE 1177 U/L (73-393); MAGNESIUM - SERUM 1.6 mg/dL (1.8-2.4); POTASSIUM - SERUM 4.4 mmol/L (3.5-5.1); SODIUM 125 mmol/L (136-145); UREA NITROGEN 12 mg/dL (7-18); eGFR NON AFRICAN AMERICAN 85 mL/min (90-120)
[2019-09-04 08:14] LABS: BASOPHILS 0 % (0-2); EOSINOPHILS 0 % (0-7); HEMATOCRIT 36.8 % (36.0-48.0); HEMOGLOBIN 12.7 g/dL (12-16); IMMATURE GRANULOCYTES 3.2 % (0-5); LYMPHOCYTES 10.2 % (15-50); MCH 30.8 pg (26.0-34.0); MCHC 34.5 g/dL (31.0-37.0); MCV 89.3 fL (80.0-100.0); MEAN PLATELET VOLUME 10.4 fL (7.4-10.4); MONOCYTES 16.9 % (2-11); NEUTROPHILS 69.7 % (40-80); PLATELET COUNT 106 10x3/uL (130-400); RBC 4.12 10x6/uL (4.00-5.40); WBC 6.2 10x3/uL (4.8-10.8)
--- NOTE | 2019-09-04 11:12 | NUR ---
I have reviewed this patient and I concur with the Shift Assessment completed by the Licensed Practical Nurse today this shift.
[2019-09-04] MEDS ORDERED: THERMOTABS 1 GM1 GM PO (12:55)
[2019-09-04] MEDS ORDERED: PREDNISONE10 MG PO (13:02)
[2019-09-04] MEDS ORDERED: CARAFATE1 G PO (13:02)
[2019-09-04] MEDS ORDERED: MEGACE400 MG/10 PO (13:02)
--- NOTE | 2019-09-04 14:14 | MORECARE ---
CASE MANAGEMENT DISCHARGE SUMMARY PATIENT: RICHY CHRISTENSEN UNIT: [id number] ADM DATE: 08/19/19 AGE: 79 : 39 SEX: F ROOM/BED: D.1205 AUTHOR: ANNA,DOC PHYSICIAN: REFERRING PHYSICIAN: CETOR STEVEN MD DATE OF SERVICE: 09/04/19 Discharge Plan Patient Name: RICHY CHRISTENSEN Facility: [facility]:[place] : 1940 Planned Disposition: [facility]ci Facility Anticipated Discharge Date: 08/22/19 Discharge Date: Expected LOS: 3 Initial Reviewer: [email or web address] Initial Review Date: 08/19/2019 Generated: 09/04/19 3:14 pm Comments DCP- Discharge Planning Updated by [id number]: Clementine Headley on 09/04/19 1:[address] Patient discharging to [facility] today in a Medicare Rehab bed. Her son is in the room and will transport her home today. Clementine Headley RN, [facility] DCP- Discharge Planning Updated by [id number]: Lakeisha Ugarte on 09/01/19 1:[address] CM called and spoke with Isatu @ [facility] [phone]. CM informed Isatu that patient may potentially be discharged tomorrow. Isatu asked if son will transport or if they will need to provide transportation. CM stated not sure haven't spoken with son today. CM will be faxing over update records to facility today in prep for discharge tomorrow. CM will continue to follow and assist with discharge planning / needs. DCP- Discharge Planning Updated by [id number]: Lakeisha Ugarte on 08/26/19 6:[address] CM spoke with patient and her son. He stated and patient agrees that she is not ready for discharge today. Her son did state that the plan is for patient to go back to [facility] for Rehab not Inpatient Rehab @ [facility]. CM notified Dr. Viveros that patient and family don't believe she is ready for discharge @ this time. Dr. Viveros went an evaluated patient and agreed to cancel discharge. CM will continue to follow and assist as needed with discharge planning / needs DCP- Discharge Planning Updated by [id number]: Lakeisha Ugarte on 08/22/19 5:[address] Late Entry 08/22/19 @ 0945 CM spoke with Carlie @ [facility]. Carlie stated that if patient is discharged then the patient had to be back to their facility before 2 pm. Patient is in a Medicare bed at the facility and will return to Medicare bed upon discharge. Facility wanting to know if son is planning on picking patient up or if she will need transportation. CM will find out if family will transport back or if patient will need transportation back. D/C IMM signed at 08/22/19 @ 1248. CM will continue to follow and assist as needed with discharge planning / needs DCP- Discharge Planning Updated by [id number]: Clementine Headley on 08/19/19 6:[address] DC PLAN:Return to Rehab at [facility] ANTICIPATED DC NEEDS: Discharge before 10am so NH will accept back. CM met with patient and her son to complete initial dc planning assessment. CM educated patient on the CM role and verbal consent given by patient to complete assessment. Patient is currently in rehab @ [facility]. At discharge patient plans to return to [facility] and feels this is a safe discharge. KARLA presented, explained, and signed by patient. Signed form place in chart and signed form left with patient. Patient denied further known discharge needs at this time. . Patient reports NH/or her son will transport her home at time of discharge. CM will continue to follow and will assist as needed with dc plans/needs. Clementine Headley RN, [facility] DCPIA - Discharge Planning Initial Assessment Updated by [id number]: Clementine Headley on 08/19/19 7:41 pm * Is the patient Alert and Oriented? Yes * How many steps to enter\exit or inside your home? none * PCP Dr. Caruso * [facility] * Preadmission Environment [facility] Facility * Facility Name [facility]. * ADLs Partial Dependent * Partial ADLs (Assistance needed) Bathing Dressing Medication Management * Equipment Rolling Walker * List name and contact numbers for known caregivers / representatives who currently or will assist patient after discharge: Joel Christensen - son - [phone] * Verbal permission to speak to the caregivers and representatives has been obtained from the patient. Yes * Community resources currently utilized None * Additional services required to return to the preadmission environment? No * Can the patient safely return to the preadmission environment? Yes * Has this patient been hospitalized within the prior 30 days at any hospital? Yes Coverage Notice Reviewer: [id number] Antoine Milane Shanel Notice Issued Date-Time: 08/22/2019 12:48 Notice Type: IM Discharge Notice Notice Delivered To: Patient Relationship to Patient: Self Portrait Studio Photographer Name: Delivery Method: HAND - Hand Delivered Polly Days: Prior Verbal Notification: Recipient Understood Notice: Yes Recipient Signature: Yes Med Rec Note Co-signed by Attending: Coverage Notice Comment: Reviewer: [email or web address] Antoine Torres Notice Issued Date-Time: 08/30/2019 11:34 Notice Type: IM Discharge Notice Notice Delivered To: Patient Relationship to Patient: Portrait Studio Photographer Name: Delivery Method: HAND - Hand Delivered Polly Days: Prior Verbal Notification: Recipient Understood Notice: Yes Recipient Signature: Yes Med Rec Note Co-signed by Attending: Coverage Notice Comment: Reviewer: [id number] Antoine Torres Notice Issued Date-Time: 09/02/2019 14:45 Notice Type: IM Discharge Notice Notice Delivered To: Patient Relationship to Patient: Portrait Studio Photographer Name: Delivery Method: HAND - Hand Delivered Polly Days: Prior Verbal Notification: Recipient Understood Notice: Yes Recipient Signature: Yes Med Rec Note Co-signed by Attending: Coverage Notice Comment: Last DP export: 09/01/19 1:53 Patient Name: RICHY CHRISTENSEN Page [id number] at 1414 All edits/amendments must be made on the electronic document DICTATION DATE: 09/04/191413 PSYCHOLOGIST EXPERIMENTAL: GLEN 09/04/191413 RPT#: [id number] DC DATE: STATUS: ADM IN [facility] [address] [place] [address] END OF REPORT
--- NOTE | 2019-09-04 14:22 | MORECARE ---
CASE MANAGEMENT DISCHARGE SUMMARY PATIENT: RICHY REGAN UNIT: [id number] ADM DATE: 08/19/19 AGE: 79 : 39 SEX: F ROOM/BED: D.1205 AUTHOR: ANNA,DOC PHYSICIAN: REFERRING PHYSICIAN: ECTOR STEVEN MD DATE OF SERVICE: 09/04/19 Discharge Plan Patient Name: RICHY REGAN Facility: [facility]:[place] : 1940 Planned Disposition: Half-Way Facility Anticipated Discharge Date: 08/22/19 Discharge Date: Expected LOS: 3 Initial Reviewer: [email or web address] Initial Review Date: 08/19/2019 Generated: 09/04/19 3:21 pm Comments DCP- Discharge Planning Updated by [email or web address]: Clementine Headley on 09/04/19 1:[address] Patient discharging to [facility] today in a Medicare Rehab bed. Her son is in the room and will transport her home today. Clementine Headley RN, CCM Appended by Clementine Headley on 09/04/2019 14:16 CDT: Spoke to Magy WEN at [facility]- faxed dc order,summary, and dc med list as requested. Nurse report to be called to Mariola @ [phone]. Report number given to the patient 's nurse to call report. Clementine Headley RN, CCM DCP- Discharge Planning Updated by [id number]: Lakeisha Ugarte on 09/01/19 1:[address] CM called and spoke with Isatu @ [facility] [phone]. CM informed Isatu that patient may potentially be discharged tomorrow. Isatu asked if son will transport or if they will need to provide transportation. CM stated not sure haven't spoken with son today. CM will be faxing over update records to facility today in prep for discharge tomorrow. CM will continue to follow and assist with discharge planning / needs. DCP- Discharge Planning Updated by [id number]: Lakeisha Ugarte on 08/26/19 6:[address] CM spoke with patient and her son. He stated and patient agrees that she is not ready for discharge today. Her son did state that the plan is for patient to go back to [facility] for Rehab not Inpatient Rehab @ [facility]. CM notified Dr. Viveros that patient and family don't believe she is ready for discharge @ this time. Dr. Viveros went an evaluated patient and agreed to cancel discharge. CM will continue to follow and assist as needed with discharge planning / needs DCP- Discharge Planning Updated by [id number]: Lakeisha Ugarte on 08/22/19 5:[address] Late Entry 08/22/19 @ 0945 CM spoke with Carlie @ [facility]. Carlie stated that if patient is discharged then the patient had to be back to their facility before 2 pm. Patient is in a Medicare bed at the facility and will return to Medicare bed upon discharge. Facility wanting to know if son is planning on picking patient up or if she will need transportation. CM will find out if family will transport back or if patient will need transportation back. D/C IMM signed at 08/22/19 @ 1248. CM will continue to follow and assist as needed with discharge planning / needs DCP- Discharge Planning Updated by [id number]: Clementine Headley on 08/19/19 6:[address] DC PLAN:Return to Rehab at [facility] ANTICIPATED DC NEEDS: Discharge before 10am so NH will accept back. CM met with patient and her son to complete initial dc planning assessment. CM educated patient on the CM role and verbal consent given by patient to complete assessment. Patient is currently in rehab @ [facility]. At discharge patient plans to return to [facility] and feels this is a safe discharge. KARLA presented, explained, and signed by patient. Signed form place in chart and signed form left with patient. Patient denied further known discharge needs at this time. . Patient reports NH/or her son will transport her home at time of discharge. CM will continue to follow and will assist as needed with dc plans/needs. Clementine Headley RN, [facility] DCPIA - Discharge Planning Initial Assessment Updated by [email or web address]: Clementine Headley on 08/19/19 7:41 pm * Is the patient Alert and Oriented? Yes * How many steps to enter\exit or inside your home? none * PCP Dr. Caruso * Pharmacy [facility] * Preadmission Environment Half-Way Facility * Facility Name [facility]. * ADLs Partial Dependent * Partial ADLs (Assistance needed) Bathing Dressing Medication Management * Equipment Rolling Walker * List name and contact numbers for known caregivers / representatives who currently or will assist patient after discharge: Joel pace - [phone] * Verbal permission to speak to the caregivers and representatives has been obtained from the patient. Yes * Community resources currently utilized None * Additional services required to return to the preadmission environment? No * Can the patient safely return to the preadmission environment? Yes * Has this patient been hospitalized within the prior 30 days at any hospital? Yes Coverage Notice Reviewer: [id number] Antoine Torres Notice Issued Date-Time: 09/02/2019 14:45 Notice Type: IM Discharge Notice Notice Delivered To: Patient Relationship to Patient: Psych Arnp Name: Delivery Method: HAND - Hand Delivered Polly Days: Prior Verbal Notification: Recipient Understood Notice: Yes Recipient Signature: Yes Med Rec Note Co-signed by Attending: Coverage Notice Comment: Reviewer: [id number] Antoine Torres Notice Issued Date-Time: 08/30/2019 11:34 Notice Type: IM Discharge Notice Notice Delivered To: Patient Relationship to Patient: Psych Arnp Name: Delivery Method: HAND - Hand Delivered Polly Days: Prior Verbal Notification: Recipient Understood Notice: Yes Recipient Signature: Yes Med Rec Note Co-signed by Attending: Coverage Notice Comment: Reviewer: [email or web address] Antoine Ugarte Notice Issued Date-Time: 08/22/2019 12:48 Notice Type: IM Discharge Notice Notice Delivered To: Patient Relationship to Patient: Self Psych Arnp Name: Delivery Method: HAND - Hand Delivered Polly Days: Prior Verbal Notification: Recipient Understood Notice: Yes Recipient Signature: Yes Med Rec Note Co-signed by Attending: Coverage Notice Comment: Last DP export: 09/04/19 1:14 Patient Name: RICHY REGAN Page [phone] at 1422 All edits/amendments must be made on the electronic document DICTATION DATE: 09/04/191420 SILVER MINER: GLEN 09/04/19 142 RPT#: [id number] NM DATE: STATUS: ADM IN [facility] [address] [place] [address] END OF REPORT
--- NOTE | 2019-09-04 14:24 | NUR ---
PT ESCORTED OUT VIA WHEELCHAIR TO SON'S POV. CL IN REACH, SRX2.
--- NOTE | 2019-09-04 14:29 | MORECARE ---
CASE MANAGEMENT DISCHARGE SUMMARY PATIENT: RICHY CHRISTENSEN UNIT: [id number] ADM DATE: 08/19/19 AGE: 79 : 39 SEX: F ROOM/BED: D.1205 AUTHOR: ANNA,DOC PHYSICIAN: REFERRING PHYSICIAN: ECTOR STEVEN MD DATE OF SERVICE: 09/04/19 Discharge Plan Patient Name: RICHY CHRISTENSEN Facility: [facility]:[place] : 1940 Planned Disposition: Nursing Home Facility Anticipated Discharge Date: 08/22/19 Discharge Date: 09/04/2019 Expected LOS: 3 Initial Reviewer: [email or web address] Initial Review Date: 08/19/2019 Generated: 09/04/19 3:29 pm Comments DCP- Discharge Planning Updated by [email or web address]: Clementine Headley on 09/04/19 1:[address] Patient discharging to [facility] today in a Medicare Rehab bed. Her son is in the room and will transport her home today. Clementine Headley RN, CCM Appended by Clementine Headley on 09/04/2019 14:16 CDT: Spoke to Magy WEN at [facility]- faxed dc order,summary, and dc med list as requested. Nurse report to be called to Mariola @ [phone]. Report number given to the patient 's nurse to call report. Clementine Headley RN, CCM DCP- Discharge Planning Updated by [id number]: Lakeisha Ugarte on 09/01/19 1:[address] CM called and spoke with Isatu @ [facility] [phone]. CM informed Isatu that patient may potentially be discharged tomorrow. Isatu asked if son will transport or if they will need to provide transportation. CM stated not sure haven't spoken with son today. CM will be faxing over update records to facility today in prep for discharge tomorrow. CM will continue to follow and assist with discharge planning / needs. DCP- Discharge Planning Updated by [id number]: Lakeisha Ugarte on 08/26/19 6:[address] CM spoke with patient and her son. He stated and patient agrees that she is not ready for discharge today. Her son did state that the plan is for patient to go back to [facility] for Rehab not Inpatient Rehab @ [facility]. CM notified Dr. Viveros that patient and family don't believe she is ready for discharge @ this time. Dr. Viveros went an evaluated patient and agreed to cancel discharge. CM will continue to follow and assist as needed with discharge planning / needs DCP- Discharge Planning Updated by [email or web address]: Lakeisha Ugarte on 08/22/19 5:[address] Late Entry 08/22/19 @ 0945 CM spoke with Carlie @ [facility]. Carlie stated that if patient is discharged then the patient had to be back to their facility before 2 pm. Patient is in a Medicare bed at the facility and will return to Medicare bed upon discharge. Facility wanting to know if son is planning on picking patient up or if she will need transportation. CM will find out if family will transport back or if patient will need transportation back. D/C IMM signed at 08/22/19 @ 1248. CM will continue to follow and assist as needed with discharge planning / needs DCP- Discharge Planning Updated by [id number]: Clementine Headley on 08/19/19 6:[address] DC PLAN:Return to Rehab at [facility] ANTICIPATED DC NEEDS: Discharge before 10am so NH will accept back. CM met with patient and her son to complete initial dc planning assessment. CM educated patient on the CM role and verbal consent given by patient to complete assessment. Patient is currently in rehab @ [facility]. At discharge patient plans to return to [facility] and feels this is a safe discharge. KARLA presented, explained, and signed by patient. Signed form place in chart and signed form left with patient. Patient denied further known discharge needs at this time. . Patient reports NH/or her son will transport her home at time of discharge. CM will continue to follow and will assist as needed with dc plans/needs. Clementine Headley RN, [facility] DCPIA - Discharge Planning Initial Assessment Updated by [email or web address]: Clementine Headley on 08/19/19 7:41 pm * Is the patient Alert and Oriented? Yes * How many steps to enter\exit or inside your home? none * PCP Dr. Caruso * Pharmacy [facility] * Preadmission Environment Nursing Home Facility * Facility Name [facility]. * ADLs Partial Dependent * Partial ADLs (Assistance needed) Bathing Dressing Medication Management * Equipment Rolling Walker * List name and contact numbers for known caregivers / representatives who currently or will assist patient after discharge: Joel Christensen - sanjeev - [phone] * Verbal permission to speak to the caregivers and representatives has been obtained from the patient. Yes * Community resources currently utilized None * Additional services required to return to the preadmission environment? No * Can the patient safely return to the preadmission environment? Yes * Has this patient been hospitalized within the prior 30 days at any hospital? Yes Coverage Notice Reviewer: [id number] Antoine Torres Notice Issued Date-Time: 09/02/2019 14:45 Notice Type: IM Discharge Notice Notice Delivered To: Patient Relationship to Patient: Circuit Clerk Name: Delivery Method: HAND - Hand Delivered Polly Days: Prior Verbal Notification: Recipient Understood Notice: Yes Recipient Signature: Yes Med Rec Note Co-signed by Attending: Coverage Notice Comment: Reviewer: [id number] Torres Notice Issued Date-Time: 08/30/2019 11:34 Notice Type: IM Discharge Notice Notice Delivered To: Patient Relationship to Patient: Circuit Clerk Name: Delivery Method: HAND - Hand Delivered Polly Days: Prior Verbal Notification: Recipient Understood Notice: Yes Recipient Signature: Yes Med Rec Note Co-signed by Attending: Coverage Notice Comment: Reviewer: [email or web address] Antoine Ugarte Notice Issued Date-Time: 08/22/2019 12:48 Notice Type: IM Discharge Notice Notice Delivered To: Patient Relationship to Patient: Self Circuit Clerk Name: Delivery Method: HAND - Hand Delivered Polly Days: Prior Verbal Notification: Recipient Understood Notice: Yes Recipient Signature: Yes Med Rec Note Co-signed by Attending: Coverage Notice Comment: Last DP export: 09/04/19 1:22 Patient Name: RICHY CHRISTENSEN Page [id number] at 1424 All edits/amendments must be made on the electronic document DICTATION DATE: 09/04/191428 CARPENTER BRIDGE: GLEN 09/04/19 1429 RPT#: [id number] DC DATE:10/13/19 STATUS: DIS IN [facility] [address] [place] [address] END OF REPORT
== END 2019-09-04 14:25 | DRG 391 ==
LOC: D.ER 11:08 → D.M3 17:14
PROVIDERS: Emergency Medicine; Family Medicine; ADMIT Internal Medicine Nephrology; ATTEND Internal Medicine Nephrology
DX: A08.4 Viral intestinal infection, unspecified (principal); K85.90 Acute pancreatitis without necrosis or infection, unspecified; J18.1 Lobar pneumonia, unspecified organism; N17.9 Acute kidney failure, unspecified; E87.1 Hypo-osmolality and hyponatremia; E87.5 Hyperkalemia; I10 Essential (primary) hypertension; I48.91 Unspecified atrial fibrillation; E03.9 Hypothyroidism, unspecified; K21.9 Gastro-esophageal reflux disease without esophagitis; M35.00 Sjogren syndrome, unspecified; M32.9 Systemic lupus erythematosus, unspecified; D50.9 Iron deficiency anemia, unspecified

== ENCOUNTER 2019-10-03 10:51 | Inpatient (IN) | payer MEDICARE, BC ==
[~2019-10-03] VITALS: Ht 165.1 cm; Wt 52.6 kg
[~2019-10-03 10:51] MED LIST changes: +CARAFATE1 G PO; +K-DUR20 MEQ PO; +MEGACE400 MG/10 PO; +THERMOTABS 1 GM1 GM PO
[2019-10-03 13:14] LABS: BASOPHILS 0.1 % (0-2); EOSINOPHILS 0 % (0-7); HEMATOCRIT 29.7 % (36.0-48.0); HEMOGLOBIN 9.6 g/dL (12-16); IMMATURE GRANULOCYTES 2.8 % (0-5); LYMPHOCYTES 6.4 % (15-50); MCH 31.1 pg (26.0-34.0); MCHC 32.3 g/dL (31.0-37.0); MCV 96.1 fL (80.0-100.0); MEAN PLATELET VOLUME 8.6 fL (7.4-10.4); MONOCYTES 4.5 % (2-11); NEUTROPHILS 86.2 % (40-80); RBC 3.09 10x6/uL (4.00-5.40); RDW 17.1 % (11.5-14.5); WBC 8.5 10x3/uL (4.8-10.8)
[2019-10-03 13:22] LABS: PLATELET COUNT 219 10x3/uL (130-400)
[2019-10-03 13:24] LABS: INR 1.04 (0.85-1.17); PROTIME 13.1 SECONDS (11.6-15.0)
[2019-10-03 13:25] LABS: APTT 58.1 SECONDS (22.8-39.4)
--- NOTE | 2019-10-03 14:09 | NUR ---
PT ARRIVES TO ROOM VIA STRETCHER ESCORTED BY HOSPITAL STAFF AND SON AT BEDSIDE. PT IS AAO X 4. PT REPORTS PAIN TO LEFT HIP 10/10 WITH MOVEMENT. PT REPORTS THAT SHE FELL AT ALF AND DID HIT HER HEAD WHEN SHE FELL. BRUISING NOTED TO LEFT SIDE BACK OF HEAD. PT STATES THAT AREA IS TENDER TO TOUCH. PT REPORTS PRESENCE OF NUMBNESS TO BILATERAL LOWER EXTREMITIES. PT REPORTS THAT SHE IS A RESERVE RIGHT ARM AND STATES "I DONT HAVE ANY LYMPH NODES ON THIS RIGHT ARM". MORELOS CATHETER NOTED AND IS DRAIING WITHOUT DIFFICULTY. CLEAR YELLOW URINE NOTED TO COLLECTION BAG. ALL FALL PRECAUTIONS ARE IN PLACE. PT SON AT BEDSIDE. BED IS IN THE LOWEST POSITION. CALL LIGHT AND BEDSIDE TABLE ARE WITHIN REACH. SIDE RAILS X 2. PT DENIES FURTHER NEEDS. WILL CONT TO MONITOR.
--- NOTE | 2019-10-03 14:23 | MORECARE ---
CASE MANAGEMENT DISCHARGE SUMMARY PATIENT: RICHY CHRISTENSEN UNIT: [id number] ADM DATE: 10/03/19 AGE: 79 : 39 SEX: F ROOM/BED: D.8490 AUTHOR: ANNA,DOC PHYSICIAN: REFERRING PHYSICIAN: ECTOR STEVEN MD DATE OF SERVICE: 10/03/19 Discharge Plan Patient Name: RICHY CHRISTENSEN Facility: [facility]:[place] : 1940 Planned Disposition: SNF w Planned Readmission Anticipated Discharge Date: 10/07/19 Discharge Date: Expected LOS: 4 Initial Reviewer: [email or web address] Initial Review Date: 10/03/2019 Generated: 10/03/19 3:22 pm DCP- Discharge Planning Updated by [email or web address]: Clementine Headley on 10/03/19 1:[address] DC PLAN: Return to [facility] - doing rehab. ANTICIPATED DC NEEDS: Transportation back to [facility] at pr. CM met with patient and her son, Joel Christensen to complete initial dc planning assessment. CM educated patient on the CM role and verbal consent given by patient to complete assessment. CM verified patient's address, phone number, and emergency contact phone numbers. Patient is currently in rehab @ [facility]. At discharge patient plans to return to [facility] and feels this is a safe discharge. KARLA form signed by patient's son Joel Chritsensen for return to [facility]. Signed form placed in chart and signed form given to patient's son. Patient denied further known discharge needs at this time. Transportation provider at discharge will be [facility]. CM will continue to follow and will assist as needed with dc plans/needs. Clementine Headley RN, CCM DCPIA - Discharge Planning Initial Assessment Updated by [id number]: Clementine Headley on 10/03/19 2:17 pm * Is the patient Alert and Oriented? Yes * How many steps to enter\exit or inside your home? None * PCP Dr. Tapia * Pharmacy [facility] * Preadmission Environment Half-Way Facility * Facility Name [facility] * ADLs Partial Dependent * Partial ADLs (Assistance needed) Ambulation Bathing Dressing Medication Management Toileting * Equipment Rolling Walker * List name and contact numbers for known caregivers / representatives who currently or will assist patient after discharge: Joel Christensen - Son - [phone] * Verbal permission to speak to the caregivers and representatives has been obtained from the patient. Yes * Community resources currently utilized None * Additional services required to return to the preadmission environment? No * Can the patient safely return to the preadmission environment? Yes * Has this patient been hospitalized within the prior 30 days at any hospital? Yes Coverage Notice Reviewer: [email or web address] Antoine Headley Notice Issued Date-Time: 10/03/2019 12:56 Notice Type: Patient Choice Letter Notice Delivered To: Family Member Relationship to Patient: Son Skill Training Program Coordinator Name: Joel Christensen Delivery Method: HAND - Hand Delivered Polly Days: Prior Verbal Notification: Recipient Understood Notice: Recipient Signature: Med Rec Note Co-signed by Attending: Coverage Notice Comment: KARLA form presented, explained and signed by the patient's son Joel Christensen for [facility]. Signed form placed on patient's chart and a signed copy left with the patient for her records. Patient Name: RICHY CHRISTENSEN Page [phone] at 1423 All edits/amendments must be made on the electronic document DICTATION DATE: 10/03/191421 PRESSER FIRST: GLEN 10/03/191421 RPT#: [id number] DC DATE: STATUS: ADM IN [facility] [address] [place] [address] END OF REPORT
[2019-10-03 14:38] LABS: ALBUMIN 2.7 g/dL (3.4-5.0); ANION GAP 8.6 mmol/L (8-16); BILIRUBIN - TOTAL 0.25 mg/dL (0.2-1.3); CALCIUM 8.7 mg/dL (8.5-10.1); CARBON DIOXIDE 28.6 mmol/L (21.0-32.0); CREATININE - SERUM 0.8 mg/dL (0.6-1.3); PROTEIN - SERUM 6.3 g/dL (6.4-8.2)
[2019-10-03 14:39] VITALS: BP 123/85; BMI 19.3
[2019-10-03 14:42] LABS: POTASSIUM - SERUM 7.2 mmol/L (3.5-5.1)
--- NOTE | 2019-10-03 14:49 | NUR ---
BRITTNY VILLARREAL APRN NOTIFIED OF PT K+ LEVEL PER MANPREET VASQUEZ RN.
--- NOTE | 2019-10-03 16:30 | NUR ---
PT PLACED IN BUCKS TRACTION PER ORDER. PT TOLERATED WELL. WEIGHT IS OFF FLOOR. PT AND PT FAMILY MEMBER EDUCATED ABOUT BUCKS TRACTION AND IMPORTANCE TO NOT TOUCH WEIGHT AND NOTIFY STAFF OF ANY CHANGE. PT AND PT FAMILY MEMBERS VERBALIZE UNDERSTANDING.
[2019-10-03 16:57] VITALS: BP 118/69
[2019-10-03 19:12] LABS: ANION GAP 13.8 mmol/L (8-16); CALCIUM 8.6 mg/dL (8.5-10.1); CARBON DIOXIDE 25.6 mmol/L (21.0-32.0)
[2019-10-03 19:13] LABS: POTASSIUM - SERUM 5.4 mmol/L (3.5-5.1)
--- NOTE | 2019-10-03 19:13 | NUR ---
PT WITH LARGE BM. LIGHT BROWN AND LOOSE. COMPLETE LINEN CHANGE. PT CLEANED. MORELOS CARE GIVEN. BUCKS TRACTION REMOVED PRIOR TO MANIPULATION OF PT AND BUCKS TRACTION REPLACED UPON COMPLETION OF PT CARE. FAMILY IS AT BEDSIDE. BED IS IN THE LOWEST POSITION. CALL LIGHT AND BEDSIDE TABLE ARE WITHIN REACH. SIDE RAILS X 2. FALL PRECAUTIONS IN PLACE. PT DENIES UFRTHER NEEDS.
[2019-10-03 20:00] VITALS: BP 134/68
--- NOTE | 2019-10-03 20:00 | NUR ---
ALERT RESTING IN BED, BUCKS TRACTION IN USE TO LEFT LEG, 5LBS WEIGHT OFF FLOOR, SEE SHIFT ASSESSMENT, CALL LIGHT IN REACH
[2019-10-04] VITALS: BP 120/67
[2019-10-04 04:00] VITALS: BP 125/69
[2019-10-04 04:41] LABS: BASOPHILS 0.2 % (0-2); EOSINOPHILS 0.2 % (0-7); HEMATOCRIT 28.4 % (36.0-48.0); HEMOGLOBIN 9.1 g/dL (12-16); IMMATURE GRANULOCYTES 4.4 % (0-5); LYMPHOCYTES 6.5 % (15-50); MCH 30.8 pg (26.0-34.0); MCV 96.3 fL (80.0-100.0); MEAN PLATELET VOLUME 8.9 fL (7.4-10.4); NEUTROPHILS 81.7 % (40-80); PLATELET COUNT 216 10x3/uL (130-400); RBC 2.95 10x6/uL (4.00-5.40); RDW 17.1 % (11.5-14.5)
[2019-10-04 04:42] LABS: ALKALINE PHOSPHATASE 136 U/L (46-116); CALCIUM 7.5 mg/dL (8.5-10.1); CHLORIDE - SERUM 100 mmol/L (98-107); GLUCOSE 114 mg/dL (74-106); SODIUM 140 mmol/L (136-145)
[2019-10-04 04:46] LABS: WBC 5.4 10x3/uL (4.8-10.8)
[2019-10-04 04:53] LABS: ALT (SGPT) 34 U/L (10-68); CALC OSMOLALITY 280 mosm/kg (275-300); CARBON DIOXIDE 37.1 mmol/L (21.0-32.0); CREATININE - SERUM 0.7 mg/dL (0.6-1.3); POTASSIUM - SERUM 3.9 mmol/L (3.5-5.1); UREA NITROGEN 16 mg/dL (7-18); eGFR NON AFRICAN AMERICAN 85 mL/min (90-120)
[2019-10-04 08:19] VITALS: BP 125/67
--- NOTE | 2019-10-04 10:29 | NUR ---
PT ALERT X 4. BREATH SOUNDS CLEAR BILAT. TELEMETRY IN PLACE. LEFT CHEST PORT, DRESSING CDI. PT REPORTING NO PAIN AT THIS TIME. LLE PULSE PALPABLE, BAUER'S TRACTION IN PLACE. FAMILY AT BEDSIDE. CALL LIGHT IN REACH. NO OTHER NEEDS AT THIS TIME.
[2019-10-04 12:37] VITALS: BP 103/52
[2019-10-04 13:12] VITALS: BMI 19.3
[2019-10-04 14:05] VITALS: Ht 165.1 cm; Wt 52.6 kg
[2019-10-04 15:21] LABS: APPEARANCE CLEAR (CLEAR); BILIRUBIN NEGATIVE (NEGATIVE); COLOR YELLOW (YELLOW); GLUCOSE NEGATIVE (NEGATIVE); KETONE NEGATIVE (NEGATIVE); NITRITE NEGATIVE (NEGATIVE); PROTEIN NEGATIVE (NEGATIVE); SPECIFIC GRAVITY 1.005 (1.005-1.020); UROBILINOGEN NORMAL (NORMAL)
[2019-10-04 16:14] VITALS: BP 100/61
--- NOTE | 2019-10-04 19:34 | NUR ---
LYING IN BED WITH TELEVISION ON, BUCKS TRACTION IN PLACE AND PROPERLY ENGAGED. SHOWS NO S/S OF ANY ACUTE DISTRESS. DOES COMPLAIN OF SLIGHT CONFUSION AT THIS TIME. WILL NOTE ANY CHANGE.
[2019-10-04 20:25] VITALS: BP 115/45
--- NOTE | 2019-10-04 23:24 | NUR ---
I have reviewed this patient and I concur with the Shift Assessment completed by the Licensed Practical Nurse today this shift.
[2019-10-05 00:20] VITALS: BP 141/81
[2019-10-05 03:56] VITALS: BP 150/80
[2019-10-05 06:02] LABS: BASOPHILS 0.2 % (0-2); EOSINOPHILS 0.3 % (0-7); HEMATOCRIT 28.3 % (36.0-48.0); HEMOGLOBIN 9.3 g/dL (12-16); IMMATURE GRANULOCYTES 4.2 % (0-5); LYMPHOCYTES 8.8 % (15-50); MCH 31.1 pg (26.0-34.0); MCHC 32.9 g/dL (31.0-37.0); MCV 94.6 fL (80.0-100.0); MEAN PLATELET VOLUME 8.6 fL (7.4-10.4); MONOCYTES 5.5 % (2-11); PLATELET COUNT 175 10x3/uL (130-400); RBC 2.99 10x6/uL (4.00-5.40); RDW 16.7 % (11.5-14.5); WBC 5.8 10x3/uL (4.8-10.8)
[2019-10-05 06:12] LABS: ALBUMIN 1.9 g/dL (3.4-5.0); ALKALINE PHOSPHATASE 143 U/L (46-116); BILIRUBIN - TOTAL 0.32 mg/dL (0.2-1.3); CALCIUM 7.3 mg/dL (8.5-10.1); CARBON DIOXIDE 39.7 mmol/L (21.0-32.0); CHLORIDE - SERUM 92 mmol/L (98-107); CREATININE - SERUM 0.7 mg/dL (0.6-1.3); GLUCOSE 107 mg/dL (74-106); PROTEIN - SERUM 4.7 g/dL (6.4-8.2); SODIUM 131 mmol/L (136-145); eGFR NON AFRICAN AMERICAN 85 mL/min (90-120)
[2019-10-05 06:15] LABS: ALT (SGPT) 25 U/L (10-68); CALC OSMOLALITY 260 mosm/kg (275-300); POTASSIUM - SERUM 3.2 mmol/L (3.5-5.1); UREA NITROGEN 8 mg/dL (7-18)
--- NOTE | 2019-10-05 07:15 | NUR ---
PATIENT TAKEN BY BED TO OR FOR PROCEDURE
[2019-10-05 07:49] LABS: APTT 28.5 SECONDS (22.8-39.4); INR 0.97 (0.85-1.17); PROTIME 12.4 SECONDS (11.6-15.0)
--- NOTE | 2019-10-05 09:14 | NUR ---
PATIENT NOTED TO HAVING BRUISING ON ARMS AND LEFT LEG, RED RASHY AREA NOTED ON BACK, RAVINDERRBUFFY.
[2019-10-05 10:48] VITALS: BP 131/66
[2019-10-05 12:57] VITALS: BP 118/60
[2019-10-05 17:27] VITALS: BP 122/61
--- NOTE | 2019-10-05 19:25 | NUR ---
LYING IN BED, EYES CLOSED, RESTING QUIETLY. ABLE TO AROUSE TO VERBAL STIMULI, DENIES ANY PAIN AT THIS TIME. WILL NOTE ANY CHANGE.
[2019-10-05 20:00] VITALS: BP 119/69
--- NOTE | 2019-10-05 22:55 | NUR ---
NOTED THAT PT HAD TWO DIFFERENT FLUIDS ORDERED. SUMMER CALLED WITH ORDERS TO DC 1/2 NS AND CONTINUE THE D5 WITH SODIUM BICARB, AND STAT BMP. WILL NOTE ANY CHANGE.
[2019-10-05 23:46] LABS: ANION GAP 4.5 mmol/L (8-16); CARBON DIOXIDE 36.6 mmol/L (21.0-32.0); CREATININE - SERUM 0.9 mg/dL (0.6-1.3); POTASSIUM - SERUM 4.1 mmol/L (3.5-5.1)
[2019-10-05 23:47] LABS: CALCIUM 6.5 mg/dL (8.5-10.1)
--- NOTE | 2019-10-05 23:50 | NUR ---
LAB NOTIFIED OF CRITICAL CALCIUM OF 6.5, WITH CALCIUM CORRECTION CALCULATOR, IT IS 8.18 WILL NOTE ANY CHANGE.
[2019-10-06 04:00] VITALS: BP 125/65
[2019-10-06 05:17] LABS: BASOPHILS 0.3 % (0-2); EOSINOPHILS 0.2 % (0-7); HEMATOCRIT 25.2 % (36.0-48.0); HEMOGLOBIN 8.2 g/dL (12-16); LYMPHOCYTES 11.9 % (15-50); MCH 31.2 pg (26.0-34.0); MCHC 32.5 g/dL (31.0-37.0); MCV 95.8 fL (80.0-100.0); MEAN PLATELET VOLUME 9.3 fL (7.4-10.4); MONOCYTES 5.9 % (2-11); NEUTROPHILS 79.7 % (40-80); RBC 2.63 10x6/uL (4.00-5.40); WBC 5.9 10x3/uL (4.8-10.8)
[2019-10-06 05:18] LABS: PLATELET COUNT 139 10x3/uL (130-400)
[2019-10-06 05:30] LABS: ALBUMIN 1.7 g/dL (3.4-5.0); ANION GAP 5.8 mmol/L (8-16); BILIRUBIN - TOTAL 0.31 mg/dL (0.2-1.3); CARBON DIOXIDE 35.2 mmol/L (21.0-32.0); CREATININE - SERUM 0.9 mg/dL (0.6-1.3); PROTEIN - SERUM 3.8 g/dL (6.4-8.2)
[2019-10-06 05:39] LABS: CALCIUM 6.9 mg/dL (8.5-10.1)
--- NOTE | 2019-10-06 07:39 | NUR ---
PATIENT RECIEVED FROM PREVIOUS NURSE RESTING WITH EYES CLOSED. SON AT SIDE. DRESSING C/D/I. AROUSES TO VOICED, DENIES PAIN. CL IN REACH
--- NOTE | 2019-10-06 08:37 | OP ---
PATIENT NAME: RICHY REGAN MEDICAL RECORD: [id number] :38 LOCATION:D.MS [id number] ADMISSION DATE:10/03/19 SURGEON: DOTTY AGUIRRE MD DATE OF OPERATION: 10/05/2019 PREOPERATIVE DIAGNOSIS: Left femoral neck fracture -- displaced. POSTOPERATIVE DIAGNOSIS: Left femoral neck fracture -- displaced. PROCEDURE: Bipolar endoprosthetic replacement for displaced femoral neck fracture. SURGEON: Dotty Aguirre MD RUG CLEANING SUPERVISOR: AL Mix INTRAOPERATIVE COMPLICATIONS: None. SUMMARY OF PATHOLOGIC FINDINGS: The patient had a shortened leg with a femoral neck fracture consistent with having done this 3 weeks ago in trying to ambulate. INDICATIONS: An 79-year-old female who fell and had x-rays taken. They were essentially read as negative; however, when she became less ambulatory, she was sent to the hospital and was found to have a displaced femoral neck fracture with substantial shortening. IMPLANTS USED: Yumiko Accolade II with a size 47 universal bipolar component with a -3 femoral head. ESTIMATED BLOOD LOSS: 100 cc. OPERATIVE SUMMARY IN DETAIL: After obtaining the appropriate preoperative orthopedic surgery consent as well as anesthetic consultation, evaluation and clearance, the patient was brought to the operating room and placed on the operating table in supine position. After general laryngeal mask airway was administered, the patient was placed in a right lateral decubitus position. All pressure points were well padded to include down leg peritoneal pad as well as axillary roll. The patient was held firmly to the operating table using the vacuum pack suction system. Left lower extremity and hip were then prepped and draped in routine sterile fashion. Curvilinear incision was made over the greater trochanter and taken down on the IT band, which was split in line with fibers of the IT band to expose the inferior aspect of the gluteus medius and minimus. These were reflected anteriorly. The hip capsule was split in a T-type fashion. Moderate amount of fracture hematoma was found; however, this was consistent with an older fracture. A femoral neck cut was made using the femoral neck cutting guide for the Accolade II system. The bone was removed along with the femoral head. This was sent to pathology. Please note that the patient did have a history of breast cancer. Sterile water was utilized throughout the entire case. After the femoral head was removed, serial and sequential reaming and broaching was done for the proximal femur for a size 4 Accolade II stem. This was put into place. Trials were undertaken. It was felt that the -3 was the most appropriate, -3 was then affixed to the 47 head. The hip was reduced, taken through a range of motion and found to be stable in all planes. Intraoperative radiographs were taken and showed good position and OPERATIVE REPORT [id number] JASS,RICHY SAIDA placement of all components and muslim of leg length. After adequate irrigation and placing a gram of tobramycin and gram of vancomycin in the wound, hip capsule was closed with #2 Ethibond followed by #5 Ethibond reapproximation of gluteus medius minimus transosseously to the greater trochanter. IT band was closed with #2 Ethibond followed by #1 Vicryl, 2-0 Vicryl, and skin dixie. Sterile dressings were applied. The patient was awakened and taken to the recovery room in stable condition. All final needle and sponge counts were correct. TRANSINT:[id number] Voice Confirmation ID: [id number] DOCUMENT ID: [id number] TIMOTHY SWEET, DOTTY MARTINS at 0837 CC: [id number] DICTATION DATE: 10/05/19 1252 FIRE CHIEF: 10/05/19 [address] [facility] [place] [id number] [place] [address]
[2019-10-06 09:21] VITALS: BP 141/60
--- NOTE | 2019-10-06 13:30 | NUR ---
RAPID RESPONSE CALLED DUE TO PATIENT BECAME UNRESPNSIVE WITH LABORED BREATHING. B/P 70/32. PATIENTS FACE APPEARED DROOPING SLIGHTLY TO LEFT. MANUAL 90/60. 02 SAT 89%. NEW ORDERS RECIEVED, 500ML BOLUS STARTED. PATIENT TAKEN FOR CT
[2019-10-06 14:00] LABS: BASOPHILS 0.1 % (0-2); EOSINOPHILS 0.1 % (0-7); HEMATOCRIT 21.3 % (36.0-48.0); IMMATURE GRANULOCYTES 1.6 % (0-5); MCH 31.6 pg (26.0-34.0); MCHC 33.3 g/dL (31.0-37.0); MCV 94.7 fL (80.0-100.0); MEAN PLATELET VOLUME 8.9 fL (7.4-10.4); MONOCYTES 4.9 % (2-11); NEUTROPHILS 84.3 % (40-80); PLATELET COUNT 121 10x3/uL (130-400); RBC 2.25 10x6/uL (4.00-5.40); RDW 16.8 % (11.5-14.5); WBC 6.8 10x3/uL (4.8-10.8)
[2019-10-06 14:03] LABS: HEMOGLOBIN 7.1 g/dL (12-16)
--- NOTE | 2019-10-06 15:39 | NUR ---
LOW CRITICAL HGB OF 7.1 CALLED TO MANNY RAMOS APN WITH ORDERS RECD TO INFUSE 2 UNITS PRBC. BLOOD DRAWN FROM PORT FOR TYPE AND SCREEN, WAITING FOR BLOOD TO BE PROCESSED IN LAB
[2019-10-06 21:36] VITALS: BP 105/47
[2019-10-07 01:03] VITALS: BP 104/43
--- NOTE | 2019-10-07 01:30 | NUR ---
I have reviewed this patient and I concur with the Shift Assessment completed by the Licensed Practical Nurse today this shift.
[2019-10-07 05:06] LABS: ALBUMIN 1.5 g/dL (3.4-5.0); BILIRUBIN - TOTAL 0.42 mg/dL (0.2-1.3); CARBON DIOXIDE 37.4 mmol/L (21.0-32.0); CREATININE - SERUM 0.9 mg/dL (0.6-1.3); PROTEIN - SERUM 3.6 g/dL (6.4-8.2)
[2019-10-07 05:07] LABS: ANION GAP 7.4 mmol/L (8-16)
[2019-10-07 05:08] LABS: CALCIUM 6.5 mg/dL (8.5-10.1); POTASSIUM - SERUM 2.8 mmol/L (3.5-5.1)
[2019-10-07 05:14] LABS: BASOPHILS 0.3 % (0-2); EOSINOPHILS 0 % (0-7); IMMATURE GRANULOCYTES 0.8 % (0-5); LYMPHOCYTES 7.9 % (15-50); MCH 31.5 pg (26.0-34.0); MCHC 33.6 g/dL (31.0-37.0); MCV 93.8 fL (80.0-100.0); MEAN PLATELET VOLUME 9.3 fL (7.4-10.4); MONOCYTES 5.7 % (2-11); NEUTROPHILS 85.3 % (40-80); PLATELET COUNT 116 10x3/uL (130-400); RDW 15.7 % (11.5-14.5); WBC 7.9 10x3/uL (4.8-10.8)
[2019-10-07 05:15] LABS: HEMATOCRIT 28.6 % (36.0-48.0); HEMOGLOBIN 9.6 g/dL (12-16); RBC 3.05 10x6/uL (4.00-5.40)
[2019-10-07 05:16] VITALS: BP 125/92
--- NOTE | 2019-10-07 08:00 | NUR ---
PATIENT RECIEVED FROM PREVIOUS NURSE RESTING WITH EYES CLOSED, AROUSED EASILY TO VOICE AND IS ALERT AND ANSWERS QUESTIONS APPROPRIATELY. DRESSING C/D/I INTACT. RESPIRATIONS REGULAR AND NON-LABORED. CL IN REACH. WILL CONT TO MONITOR
[2019-10-07 08:27] VITALS: BP 123/78
[2019-10-07 10:25] LABS: MAGNESIUM - SERUM 1.2 mg/dL (1.8-2.4); PHOSPHOROUS 3.6 mg/dL (2.5-4.9)
[2019-10-07 12:47] VITALS: BP 108/62
--- NOTE | 2019-10-07 14:14 | NUR ---
Nutrition follow-up: Diet: Regular as tolerated PO intake ~50% of some meals Labs reviewed Wt: 116# Calorie count started RDN will order Ensure with meals RDN following.
[2019-10-07 15:21] LABS: MAGNESIUM - SERUM 1.8 mg/dL (1.8-2.4)
[2019-10-07 15:22] LABS: POTASSIUM - SERUM 2.9 mmol/L (3.5-5.1)
[2019-10-07 16:53] VITALS: BP 123/54
[2019-10-07 21:16] VITALS: BP 104/52
[2019-10-08 01:13] VITALS: BP 119/52
--- NOTE | 2019-10-08 02:53 | NUR ---
I have reviewed this patient and I concur with the Shift Assessment completed by the Licensed Practical Nurse today this shift.
--- NOTE | 2019-10-08 02:54 | NUR ---
I have reviewed this patient and I concur with the Shift Assessment completed by the Licensed Practical Nurse today this shift.
[2019-10-08 04:37] VITALS: BP 153/57
[2019-10-08 06:34] LABS: BASOPHILS 0.2 % (0-2); EOSINOPHILS 0.2 % (0-7); HEMATOCRIT 26.3 % (36.0-48.0); IMMATURE GRANULOCYTES 0.7 % (0-5); LYMPHOCYTES 6.8 % (15-50); MCHC 34.2 g/dL (31.0-37.0); MCV 93.6 fL (80.0-100.0); MEAN PLATELET VOLUME 9.4 fL (7.4-10.4); MONOCYTES 4.7 % (2-11); NEUTROPHILS 87.4 % (40-80); PLATELET COUNT 118 10x3/uL (130-400); RBC 2.81 10x6/uL (4.00-5.40); RDW 15.8 % (11.5-14.5)
[2019-10-08 06:39] LABS: ALBUMIN 1.4 g/dL (3.4-5.0); ANION GAP 2.9 mmol/L (8-16); BILIRUBIN - TOTAL 0.38 mg/dL (0.2-1.3); CARBON DIOXIDE 38.3 mmol/L (21.0-32.0); CREATININE - SERUM 0.8 mg/dL (0.6-1.3); POTASSIUM - SERUM 3.2 mmol/L (3.5-5.1)
[2019-10-08 06:40] LABS: WBC 5.6 10x3/uL (4.8-10.8)
--- NOTE | 2019-10-08 07:15 | NUR ---
ALERT AND ORIENTED, RESTING IN BED. NO C/O PAIN. NO S/S OF ACUTE DISTRESS NOTED. RESERVE RIGHT ARM. MORELOS CATHETER PRESENT. ON 1.5L O2, NC. LEFT CHEST PORT, SODIUM BICARB INFUSING @ 75ML/HR. SITE PATENT WITHOUT REDNESS OR SWELLING. MEDS CRUSHED WITH PUDDING. ON TELEMETRY SR 100 WITH PVCS. ON ELECTROLYTE PROTOCOL, POTASSIUM 3.2, GAVE PATIENT 40 MEQ POTASSIUM PER PROTOCOL. DENIES ANY NEEDS AT THIS TIME. CALL LIGHT IN REACH. WILL CONTINUE TO MONITOR.
[2019-10-08 08:55] VITALS: BP 128/58
[2019-10-08] MEDS ORDERED: ELIQUIS2.5 MG PO (10:28)
[2019-10-08] MEDS ORDERED: HYDROCODON-ACE1 EAC7 PO (10:29)
[2019-10-08 12:04] VITALS: BP 116/58
--- NOTE | 2019-10-08 12:47 | MORECARE ---
CASE MANAGEMENT DISCHARGE SUMMARY PATIENT: RICHY CHRISTENSEN UNIT: [id number] ADM DATE: 10/03/19 AGE: 79 : 39 SEX: F ROOM/BED: D.9128 AUTHOR: ANNA,DOC PHYSICIAN: REFERRING PHYSICIAN: ECTOR STEVEN MD DATE OF SERVICE: 10/08/19 Discharge Plan Patient Name: RICHY CHRISTENSEN Facility: [facility]:[place] : 1940 Planned Disposition: SNF w Planned Readmission Anticipated Discharge Date: 10/07/19 Discharge Date: Expected LOS: 4 Initial Reviewer: [email or web address] Initial Review Date: 10/03/2019 Generated: 10/08/19 1:47 pm Comments DCP- Discharge Planning Updated by [email or web address]: Melanie Dotson on 10/08/19 11:[address] PATIENT HAS DISCHARGE ORDER FOR TODAY TO [facility] PER [facility]THO. HAS NOT CLEARED FOR DISCHARGE AT PRESENT. TC TO [facility] TO ADVISE OF POTENTIAL DISCHARGE. CM SPOKE W/ [facility] NURSE[facility]. SHE ADVISED CM THAT THE FACILITY WILL NOT ACCEPT PATIENT RETURN TO FACILITY OVER THE WEEKEND. CM WILL NEED TO F/U ON THURSDAY. CM WILL FAX CLINICAL UPDATE. HAMMERER TO SPEAK WITH BRENDA, THE DELPHI DEVELOPER. ON THURSDAY AM. DCP- Discharge Planning Updated by [email or web address]: Clementine Headley on 10/03/19 1:[address] DC PLAN: Return to [facility] - doing rehab. ANTICIPATED DC NEEDS: Transportation back to [facility] at ma. CM met with patient and her son, Joel Christensen to complete initial dc planning assessment. CM educated patient on the CM role and verbal consent given by patient to complete assessment. CM verified patient's address, phone number, and emergency contact phone numbers. Patient is currently in rehab @ [facility]. At discharge patient plans to return to [facility] and feels this is a safe discharge. KARLA form signed by patient's son Joel Christensen for return to [facility]. Signed form placed in chart and signed form given to patient's son. Patient denied further known discharge needs at this time. Transportation provider at discharge will be [facility]. CM will continue to follow and will assist as needed with dc plans/needs. Clementine Headley RN, [facility] DCPIA - Discharge Planning Initial Assessment Updated by [id number]: Clementine Headley on 10/03/19 2:17 pm * Is the patient Alert and Oriented? Yes * How many steps to enter\exit or inside your home? None * PCP Dr. Tapia * Pharmacy [facility] * Preadmission Environment Assisted Facility * Facility Name [facility] * ADLs Partial Dependent * Partial ADLs (Assistance needed) Ambulation Bathing Dressing Medication Management Toileting * Equipment Rolling Walker * List name and contact numbers for known caregivers / representatives who currently or will assist patient after discharge: Joel Christensen - Son - [phone] * Verbal permission to speak to the caregivers and representatives has been obtained from the patient. Yes * Community resources currently utilized None * Additional services required to return to the preadmission environment? No * Can the patient safely return to the preadmission environment? Yes * Has this patient been hospitalized within the prior 30 days at any hospital? Yes Coverage Notice Reviewer: [email or web address] - Clementine Headley Notice Issued Date-Time: 10/03/2019 12:56 Notice Type: Patient Choice Letter Notice Delivered To: Family Member Relationship to Patient: Son Nuisance Wildlife Specialist Name: Joel Christensen Delivery Method: HAND - Hand Delivered Polly Days: Prior Verbal Notification: Recipient Understood Notice: Recipient Signature: Daren Rec Note Co-signed by Attending: Coverage Notice Comment: KARLA form presented, explained and signed by the patient's son Joel Christensen for [facility]. Signed form placed on patient's chart and a signed copy left with the patient for her records. Last DP export: 10/03/19 1:23 Patient Name: RICHY CHRISTENSEN Page [phone] at 1247 All edits/amendments must be made on the electronic document DICTATION DATE: 10/08/190 PROJECT COORDINATOR: GLEN 10/08/19 1247 RPT#: [id number] DC DATE: STATUS: ADM IN [facility] [address] [place] [address] END OF REPORT
[2019-10-08 16:08] VITALS: BP 130/71
--- NOTE | 2019-10-08 18:43 | NUR ---
RESTING IN BED, EYES OPEN. C/O GAS PAINS, OBTAINED ORDER FOR GAS-X. NO S/S OF ACUTE DISTRESS NOTED. DENIES ANY NEEDS AT THIS TIME. CALL LIGHT IN REACH. WILL CONTINUE TO MONITOR.
[2019-10-08 19:30] VITALS: BP 137/61
--- NOTE | 2019-10-08 20:02 | NUR ---
I have reviewed this patient and I concur with the Shift Assessment completed by the Licensed Practical Nurse today this shift.
--- NOTE | 2019-10-08 21:09 | NUR ---
RESTING QUEITLY. RESP EVEN AND UNALBORED. NO DISTRESS NOTED. O2 @ 2L PER NC ON. IV TO LEFT PORT INTACT WITHOUT REDNESS OR EDEMA NOTED. DRESSING INTACT TO LEFT HIP WITHOUT DRAINAGE NOTED. TURNED AND POSITIONED. FALL PRECAUTIONS IN PLACE. CL IN REACH
[2019-10-09 00:30] VITALS: BP 106/52
--- NOTE | 2019-10-09 03:27 | NUR ---
I have reviewed this patient and I concur with the Shift Assessment completed by the Licensed Practical Nurse today this shift.
[2019-10-09 04:30] VITALS: BP 110/48
[2019-10-09 06:33] LABS: BASOPHILS 0 % (0-2); EOSINOPHILS 0.3 % (0-7); HEMATOCRIT 26.5 % (36.0-48.0); HEMOGLOBIN 8.9 g/dL (12-16); IMMATURE GRANULOCYTES 1.3 % (0-5); LYMPHOCYTES 9.9 % (15-50); MCH 31.8 pg (26.0-34.0); MCHC 33.6 g/dL (31.0-37.0); MCV 94.6 fL (80.0-100.0); MEAN PLATELET VOLUME 9.8 fL (7.4-10.4); MONOCYTES 5.6 % (2-11); NEUTROPHILS 82.9 % (40-80); PLATELET COUNT 123 10x3/uL (130-400); RDW 15.6 % (11.5-14.5)
[2019-10-09 06:34] LABS: WBC 3.8 10x3/uL (4.8-10.8)
[2019-10-09 06:58] LABS: ALBUMIN 1.4 g/dL (3.4-5.0); ALKALINE PHOSPHATASE 88 U/L (46-116); ALT (SGPT) 13 U/L (10-68); BILIRUBIN - TOTAL 0.31 mg/dL (0.2-1.3); CALC OSMOLALITY 253 mosm/kg (275-300); CARBON DIOXIDE 38.6 mmol/L (21.0-32.0); CHLORIDE - SERUM 89 mmol/L (98-107); CREATININE - SERUM 0.7 mg/dL (0.6-1.3); GLUCOSE 94 mg/dL (74-106); POTASSIUM - SERUM 3.2 mmol/L (3.5-5.1); PROTEIN - SERUM 3.5 g/dL (6.4-8.2); SODIUM 127 mmol/L (136-145); UREA NITROGEN 9 mg/dL (7-18); eGFR NON AFRICAN AMERICAN 85 mL/min (90-120)
[2019-10-09 06:59] LABS: CALCIUM 6.9 mg/dL (8.5-10.1)
--- NOTE | 2019-10-09 07:25 | NUR ---
pt resting quietly in bed. resp shallow at times. o2 @ 1.[address] pt denies pain at this time. iv to left chest port with sodium bicarb infusing @ 75ml/hr via pump. site without redness or edema. dressing to left hip c/d/i at this time. f/c patent to gravity. pt denies pain at this time. denies further needs. cl within reach. encouraged to call with needs. continue poc
[2019-10-09 07:59] VITALS: BP 137/63
[2019-10-09 12:07] VITALS: BP 125/76
[2019-10-09 16:17] VITALS: BP 131/57
[2019-10-09 20:01] VITALS: BP 114/58
--- NOTE | 2019-10-09 21:09 | NUR ---
RESTING QUEITLY WITH NO COMPLAITNS VOICED. RESP UNALBORED. NO DISTRESS NOTED. O2 @ 2L PER NC ON. IV TO LEFT PORT INTACT WITHOUT REDNESS OR EDEMA NOTED. CL IN REACH
[2019-10-10 00:30] VITALS: BP 118/52
--- NOTE | 2019-10-10 02:47 | NUR ---
I have reviewed this patient and I concur with the Shift Assessment completed by the Licensed Practical Nurse today this shift.
[2019-10-10 05:00] VITALS: BP 110/62
[2019-10-10 06:43] LABS: ALBUMIN 1.5 g/dL (3.4-5.0); ALKALINE PHOSPHATASE 90 U/L (46-116); BILIRUBIN - TOTAL 0.33 mg/dL (0.2-1.3); CALC OSMOLALITY 251 mosm/kg (275-300); CARBON DIOXIDE 36.6 mmol/L (21.0-32.0); CHLORIDE - SERUM 90 mmol/L (98-107); CREATININE - SERUM 0.6 mg/dL (0.6-1.3); GLUCOSE 85 mg/dL (74-106); POTASSIUM - SERUM 3.5 mmol/L (3.5-5.1); PROTEIN - SERUM 3.6 g/dL (6.4-8.2); SODIUM 127 mmol/L (136-145); UREA NITROGEN 8 mg/dL (7-18); eGFR NON AFRICAN AMERICAN > 90 mL/min (90-120)
[2019-10-10 07:13] LABS: BASOPHILS 0.2 % (0-2); EOSINOPHILS 0 % (0-7); HEMATOCRIT 27.2 % (36.0-48.0); IMMATURE GRANULOCYTES 2.4 % (0-5); LYMPHOCYTES 12.6 % (15-50); MCH 31.1 pg (26.0-34.0); MCHC 33.1 g/dL (31.0-37.0); MCV 94.1 fL (80.0-100.0); MEAN PLATELET VOLUME 10.1 fL (7.4-10.4); MONOCYTES 7.7 % (2-11); NEUTROPHILS 77.1 % (40-80); PLATELET COUNT 140 10x3/uL (130-400); RBC 2.89 10x6/uL (4.00-5.40); RDW 15.5 % (11.5-14.5); WBC 4.1 10x3/uL (4.8-10.8)
[2019-10-10 07:20] LABS: ALT (SGPT) 17 U/L (10-68)
[2019-10-10 07:22] LABS: CALCIUM 6.8 mg/dL (8.5-10.1)
--- NOTE | 2019-10-10 08:09 | NUR ---
PATIENT RECIEVED FROM PREVIOUS SHIFT RESTING WITH SON AT BEDSIDE. REPORTS HIP PAIN WITH PRN NORCO GIVEN.MORELOS CATH PATENT WITH CLEAR YELLOW URINE TO BEDSIDE DRAINAGE.
[2019-10-10 08:33] VITALS: BP 114/61
--- NOTE | 2019-10-10 09:28 | NUR ---
PATIENT RECIEVED FROM PREVIOUS SHIFT RESTING IN BED WITH CL IN REACH. DENIES NEED FOR PAIN MEDICAIONS. AM B/P MEDICAIONS HELD DUE TO B/P 114/61
--- NOTE | 2019-10-10 09:33 | MORECARE ---
CASE MANAGEMENT DISCHARGE SUMMARY PATIENT: RICHY CHRISTENSEN UNIT: [id number] ADM DATE: 10/03/19 AGE: 79 : 39 SEX: F ROOM/BED: D.2538 AUTHOR: ANNA,DOC PHYSICIAN: REFERRING PHYSICIAN: ECTOR STEVEN MD DATE OF SERVICE: 10/10/19 Discharge Plan Patient Name: RICHY CHRISTENSEN Facility: [facility]:[place] : 1940 Planned Disposition: SNF w Planned Readmission Anticipated Discharge Date: 10/07/19 Discharge Date: Expected LOS: 4 Initial Reviewer: [id number] Initial Review Date: 10/03/2019 Generated: 10/10/19 10:33 am Comments DCP- Discharge Planning Updated by [email or web address]: Aida Gates on 10/10/19 8:[address] PATIENT TO BE DISCHARGED TO [facility] TO A SKILLED BED TODAY. IMM SERVED AND EXPLAINED TO SON AND SIGNED BY SON DARELL. SPOKE WITH BRENDA THEY WILL PICK HER UP AT 12:00-12.:30 TODAY. FAXED CLINCIAL TO BRENDA. CM TO FOLLOW AND ASSIST NEEDED DCP- Discharge Planning Updated by [email or web address]: Melanie Dotson on 10/08/19 11:[address] PATIENT HAS DISCHARGE ORDER FOR TODAY TO [facility] PER [facility]. IM HAS NOT CLEARED FOR DISCHARGE AT PRESENT. TC TO [facility] TO ADVISE OF POTENTIAL DISCHARGE. CM SPOKE W/ [address]. SHE ADVISED CM THAT THE FACILITY WILL NOT ACCEPT PATIENT RETURN TO FACILITY OVER THE WEEKEND. CM WILL NEED TO F/U ON THURSDAY. CM WILL FAX CLINICAL UPDATE. CONTINUOUS VULCANIZING MACHINE OPERATOR TO SPEAK WITH BERNDA, THE DISTRICT SALES COORDINATOR. ON THURSDAY AM. DCP- Discharge Planning Updated by [email or web address]: Clementine Headley on 10/03/19 1:[address] DC PLAN: Return to [facility] - doing rehab. ANTICIPATED DC NEEDS: Transportation back to [facility] at mo. CM met with patient and her son, Darell Christensen to complete initial dc planning assessment. CM educated patient on the CM role and verbal consent given by patient to complete assessment. CM verified patient's address, phone number, and emergency contact phone numbers. Patient is currently in rehab @ [facility]. At discharge patient plans to return to [facility] and feels this is a safe discharge. KARLA form signed by patient's son Darell Christensen for return to [facility]. Signed form placed in chart and signed form given to patient's son. Patient denied further known discharge needs at this time. Transportation provider at discharge [facility] be [facility]. CM will continue to follow and will assist as needed with dc plans/needs. Clementine Headley RN, [facility] DCPIA - Discharge Planning Initial Assessment Updated by [email or web address]: Clementine Headley on 10/03/19 2:17 pm * Is the patient Alert and Oriented? Yes * How many steps to enter\exit or inside your home? None * PCP Dr. Tapia * Pharmacy [facility] * Preadmission Environment [facility] Facility * Facility Name [facility] * ADLs Partial Dependent * Partial ADLs (Assistance needed) Ambulation Bathing Dressing Medication Management Toileting * Equipment Rolling Walker * List name and contact numbers for known caregivers / representatives who currently or will assist patient after discharge: Darell Christensen - Son - [phone] * Verbal permission to speak to the caregivers and representatives has been obtained from the patient. Yes * Community resources currently utilized None * Additional services required to return to the preadmission environment? No * Can the patient safely return to the preadmission environment? Yes * Has this patient been hospitalized within the prior 30 days at any hospital? Yes External Providers External Provider: [facility] Next Contact Date: Service Request Date: Service Type: Resolution: Reviewer: Comments: Coverage Notice Reviewer: [id number] - Clementine Headley Notice Issued Date-Time: 10/03/2019 12:56 Notice Type: Patient Choice Letter Notice Delivered To: Family Member Relationship to Patient: Son Database Marketing Manager Name: Darell Christensen Delivery Method: HAND - Hand Delivered Polly Days: Prior Verbal Notification: Recipient Understood Notice: Recipient Signature: Med Rec Note Co-signed by Attending: Coverage Notice Comment: KARLA form presented, explained and signed by the patient's son Darell Christensen for [facility]. Signed form placed on patient's chart and a signed copy left with the patient for her records. Reviewer: [id number] - Aida Gates Notice Issued Date-Time: 10/10/2019 9:20 Notice Type: IM Discharge Notice Notice Delivered To: Family Member Relationship to Patient: Son Database Marketing Manager Name: DARELL CHRISTENSEN Delivery Method: HAND - Hand Delivered Polly Days: Prior Verbal Notification: Recipient Understood Notice: Yes Recipient Signature: Yes Med Rec Note Co-signed by Attending: Coverage Notice Comment: Last DP export: 10/08/19 11:47 Patient Name: RICHY CHRISTENSEN Page [id number] at 0933 All edits/amendments must be made on the electronic document DICTATION DATE: 10/10/19932 ACCOUNTANT AUDITOR: GLEN 10/10/19932 RPT#: [id number] DC DATE: STATUS: ADM IN [facility] [address] [place] [address] END OF REPORT
--- NOTE | 2019-10-10 12:45 | NUR ---
HUBBER NEEDLE REMOVED FROM LEFT PORT NO BLEEDING, REDNESS OR EDEMA AT SITE. MORELOS CATHETER REMOVED WITH TIP INTACT. PATIENT TOLERATED WELL.
--- NOTE | 2019-10-10 13:18 | NUR ---
REPORT CALLED TO KRISTINA AT [facility]
--- NOTE | 2019-10-13 11:00 | MORECARE ---
CASE MANAGEMENT DISCHARGE SUMMARY PATIENT: RICHY CHRISTENSEN UNIT: [id number] ADM DATE: 10/03/19 AGE: 79 : 39 SEX: F ROOM/BED: D.6226 AUTHOR: ANNA,DOC PHYSICIAN: REFERRING PHYSICIAN: ECTOR STEVEN MD DATE OF SERVICE: 10/13/19 Discharge Plan Patient Name: RICHY CHRISTENSEN Facility: [facility]:[place] : 1940 Planned Disposition: SNF w Planned Readmission Anticipated Discharge Date: 10/07/19 Discharge Date: 10/10/2019 Expected LOS: 4 Initial Reviewer: [email or web address] Initial Review Date: 10/03/2019 Generated: 10/13/19 12:00 pm DCP- Discharge Planning Updated by [email or web address]: Aida Gates on 10/10/19 8:[address] PATIENT TO BE DISCHARGED TO [facility] TO A SKILLED BED TODAY. IMM SERVED AND EXPLAINED TO SON AND SIGNED BY EWA LOZOYA. SPOKE WITH BRENDA THEY WILL PICK HER UP AT 12:00-12.:30 TODAY. FAXED CLINCIAL TO BRENDA. CM TO FOLLOW AND ASSIST NEEDED DCP- Discharge Planning Updated by [email or web address]: Melanie Dotson on 10/08/19 11:[address] PATIENT HAS DISCHARGE ORDER FOR TODAY TO [facility] PER [facility]. IM HAS NOT CLEARED FOR DISCHARGE AT PRESENT. TC TO [facility] TO ADVISE OF POTENTIAL DISCHARGE. CM SPOKE W/ [address] [facility]. SHE ADVISED CM THAT THE FACILITY WILL NOT ACCEPT PATIENT RETURN TO FACILITY OVER THE WEEKEND. CM WILL NEED TO F/U ON THURSDAY. CM WILL FAX CLINICAL UPDATE. APRON CLEANER TO SPEAK WITH BRENDA, THE DEPUTY CHIEF COUNSEL. ON THURSDAY AM. DCP- Discharge Planning Updated by [email or web address]: Clementine Headley on 10/03/19 1:[address] DC PLAN: Return to [facility] - doing rehab. ANTICIPATED DC NEEDS: Transportation back to [facility] at ut. CM met with patient and her son, Darell Christensen to complete initial dc planning assessment. CM educated patient on the CM role and verbal consent given by patient to complete assessment. CM verified patient's address, phone number, and emergency contact phone numbers. Patient is currently in rehab @ [facility]. At discharge patient plans to return to [facility] and feels this is a safe discharge. KARLA form signed by patient's son Darell Christensen [facility] Signed form placed in chart and signed form given to patient's son. Patient denied further known discharge needs at this time. Transportation provider at discharge will be [facility]. CM will continue to follow and will assist as needed with dc plans/needs. Clementine Headley RN, [facility] DCPIA - Discharge Planning Initial Assessment Updated by [email or web address]: Clementine Headley on 10/03/19 2:17 pm * Is the patient Alert and Oriented? Yes * How many steps to enter\exit or inside your home? None * PCP Dr. Tapia * Pharmacy [facility] * Preadmission Environment [facility] * Facility Name [facility] * ADLs Partial Dependent * Partial ADLs (Assistance needed) Ambulation Bathing Dressing Medication Management Toileting * Equipment Rolling Walker * List name and contact numbers for known caregivers / representatives who currently or will assist patient after discharge: Darell Christensen - Son - [phone] * Verbal permission to speak to the caregivers and representatives has been obtained from the patient. Yes * Community resources currently utilized None * Additional services required to return to the preadmission environment? No * Can the patient safely return to the preadmission environment? Yes * Has this patient been hospitalized within the prior 30 days at any hospital? Yes Coverage Notice Reviewer: [id number] - Clementine Headley Notice Issued Date-Time: 10/03/2019 12:56 Notice Type: Patient Choice Letter Notice Delivered To: Family Member Relationship to Patient: Son Tinter Photograph Name: Darell Christensen Delivery Method: HAND - Hand Delivered Polly Days: Prior Verbal Notification: Recipient Understood Notice: Recipient Signature: Med Rec Note Co-signed by Attending: Coverage Notice Comment: KARLA form presented, explained and signed by the patient's son Darell Christensen for [facility]. Signed form placed on patient's chart and a signed copy left with the patient for her records. Reviewer: [email or web address] Antoine Gates Notice Issued Date-Time: 10/10/2019 9:20 Notice Type: IM Discharge Notice Notice Delivered To: Family Member Relationship to Patient: Son Tinter Photograph Name: DARELL CHRISTENSEN Delivery Method: HAND - Hand Delivered Polly Days: Prior Verbal Notification: Recipient Understood Notice: Yes Recipient Signature: Yes Med Rec Note Co-signed by Attending: Coverage Notice Comment: Last DP export: 10/10/19 8:33 Patient Name: RICHY CHRISTENSEN Page [id number] at 1100 All edits/amendments must be made on the electronic document DICTATION DATE: 10/13/191058 CRITICAL CARE TECHNICIAN: GLEN 10/13/19 105 RPT#: [id number] DC DATE:10/10/19 STATUS: DIS IN [facility] [address] [place] [address] END OF REPORT
== END 2019-10-10 15:08 | DRG 469 ==
LOC: D.ER 10:51 → D.MS 11:23
PROVIDERS: Anesthesiology; Emergency Medicine; Orthopaedic Surgery; ADMIT Internal Medicine Nephrology; ATTEND Internal Medicine Nephrology
PROC: 0SRS0J9 Replacement of Left Hip Joint, Femoral Surface with Synthetic Substitute, Cemented, Open Approach (ICD-10-PCS; principal; 2019-10-05 07:30)
DX: S72.002A Fracture of unspecified part of neck of left femur, initial encounter for closed fracture (principal); J96.01 Acute respiratory failure with hypoxia; E43 Unspecified severe protein-calorie malnutrition; Z68.1 Body mass index [BMI] 19.9 or less, adult; D62 Acute posthemorrhagic anemia; W19.XXXA Unspecified fall, initial encounter; Y92.129 Unspecified place in nursing home as the place of occurrence of the external cause; J32.9 Chronic sinusitis, unspecified; E03.9 Hypothyroidism, unspecified; I10 Essential (primary) hypertension; I48.91 Unspecified atrial fibrillation; K21.9 Gastro-esophageal reflux disease without esophagitis; K57.90 Diverticulosis of intestine, part unspecified, without perforation or abscess without bleeding; M19.90 Unspecified osteoarthritis, unspecified site; Z87.11 Personal history of peptic ulcer disease; M35.00 Sjogren syndrome, unspecified; N95.9 Unspecified menopausal and perimenopausal disorder; Z85.3 Personal history of malignant neoplasm of breast; Z85.028 Personal history of other malignant neoplasm of stomach; M32.9 Systemic lupus erythematosus, unspecified; I95.9 Hypotension, unspecified; R41.82 Altered mental status, unspecified